=== PATIENT | female | born 1950 | race Caucasian/White ===

== ENCOUNTER 2016-10-29 13:22 | Inpatient (IN) | payer MEDICARE ==
[2016-10-29] MEDS ORDERED: SODIUM CHLORIDE 0.9% 1,000 ML IV ONE ×2 (13:27)
[2016-10-29 13:28] LABS: Glucose,Whole Blood 119 mg/dL (75-99)
[2016-10-29] MEDS ORDERED: HYDROCORTISONE SUCCINATE 100 MG/2 ML VIAL IV STA (13:29)
[2016-10-29] MEDS ORDERED: SODIUM CHLORIDE 0.9% 1,000 ML IV STA (13:38)
--- NOTE | 2016-10-29 13:38 | ED ---
Weakness HPI - General Chief complaint: Weakness Stated complaint: FLU LIKE SYMPTOMS, NAUSEA VOMITING Time Seen by Provider: 10/29/16 13:22 Source: patient, family, EMS, RN notes reviewed Mode of arrival: EMS - History of Present Illness Initial comments: Is a 66-year-old female with a history of Levels's disease who apparently has had nausea vomiting and diarrhea for the past several days. She's had lethargy decreased responsiveness. EMS was called this morning with the patient's family could not arouse her she did arouse to sternal rub. She was given 300 mL of fluid in route she did start responding more. She had nausea vomiting diarrhea no apparent fevers chills sweats or other symptoms. MD Complaint: generalized weakness - Related Data Home Medications Medication Instructions Recorded Confirmed Cholecalciferol [Vitamin D3] 2,000 unit PO DAILY 10/29/16 10/29/16 Fludrocortisone Acetate 0.05 mg PO DAILY 10/29/16 10/29/16 Hydrocortisone [Cortef] 5 mg PO W/SUPPER 10/29/16 10/29/16 Hydrocortisone [Cortef] 10 mg PO BID 10/29/16 10/29/16 Levothyroxine Sodium [Synthroid] 88 mcg PO DAILY 10/29/16 10/29/16 Allergies Allergy/AdvReac Type Severity Reaction Status Date / Time No Known Allergies Allergy Verified 10/29/16 14:33 Review of Systems ROS Statement: Those systems with pertinent positive or pertinent negative responses have been documented in the HPI. ROS Other: All systems not noted in ROS Statement are negative. Past Medical History Additional Past Medical History / Comment(s): addisons History of Any Multi-Drug Resistant Organisms: None Reported Past Surgical History: Hysterectomy Additional Past Surgical History / Comment(s): neck surgery-benign tumor Past Psychological History: No Psychological Hx Reported Smoking Status: Never smoker Past Alcohol Use History: None Reported Past Drug Use History: None Reported General Exam - General Exam Comments Initial Comments: This is a well-developed well-nourished female she is lethargic but she is arousable. General appearance: lethargic Head exam: Present: atraumatic, normocephalic, normal inspection Eye exam: Present: normal appearance, PERRL, EOMI. Absent: scleral icterus, conjunctival injection, periorbital swelling ENT exam: Present: mucous membranes dry Neck exam: Present: normal inspection. Absent: tenderness, meningismus, lymphadenopathy Respiratory exam: Present: decreased breath sounds. Absent: respiratory distress, wheezes, rales, rhonchi, stridor Cardiovascular Exam: Present: normal rhythm, tachycardia, normal heart sounds. Absent: systolic murmur, diastolic murmur, rubs, gallop, clicks GI/Abdominal exam: Present: soft, normal bowel sounds. Absent: distended, tenderness, guarding, rebound, rigid, pulsatile mass, hernia Rectal exam: Present: deferred Extremities exam: Present: normal inspection, full ROM, normal capillary refill. Absent: tenderness, pedal edema, joint swelling, calf tenderness Back exam: Present: normal inspection Neurological exam: Present: alert, oriented X3, CN II-XII intact Psychiatric exam: Present: normal affect, normal mood Skin exam: Present: warm, dry, intact, normal color. Absent: rash Course Vital Signs 10/29/16 10/29/16 10/29/16 13:23 13:30 14:15 Temperature 103.3 F H 102.7 F H Pulse Rate 109 H 95 Pulse Rate [ 110 H Sap Bods Developer ] Respiratory 28 H 28 H 28 H Rate Blood Pressure 154/73 120/56 O2 Sat by Pulse 96 95 Oximetry 10/29/16 15:28 Temperature 99 F Pulse Rate 97 Pulse Rate [ Sap Bods Developer ] Respiratory 22 Rate Blood Pressure 101/59 O2 Sat by Pulse 95 Oximetry - Reevaluation(s) Reevaluation #1: 10/29/16 16:23 Patient initially much improved after IV fluids. She is more responsive. EKG Findings - EKG Results: EKG: interpreted by CANDIDA, sinus rhythm (Sinus rhythm a rate of 109. Interval 138 QRS duration 82 daily since QTC of 396/533 LVH and prolonged QT st-t wave changes.) Medical Decision Making - Medical Decision Making Patient was reevaluated several more occasions. He did improve after IV fluids she will be admitted I did discuss case with her family members. Patient was admitted for was a type A dehydration and fever. - Lab Data Result diagrams: 10/29/16 14:00 10/29/16 14:00 Lab Results 10/29/16 10/29/16 10/29/16 Range/Units 13:26 14:00 14:00 WBC 13.1 H (3.8-10.6) k/uL RBC 4.92 (3.80-5.40) m/uL Hgb 15.9 (11.4-16.0) gm/dL Hct 44.2 (34.0-46.0) % MCV 89.9 (80.0-100.0) fL MCH 32.3 (25.0-35.0) pg MCHC 36.0 (31.0-37.0) g/dL RDW 12.8 (11.5-15.5) % Plt Count 155 (150-450) k/uL Neutrophils % 71 % Lymphocytes % 16 % Monocytes % 9 % Eosinophils % 1 % Basophils % 1 % Neutrophils # 9.4 H (1.3-7.7) k/uL Lymphocytes # 2.1 (1.0-4.8) k/uL Monocytes # 1.2 H (0-1.0) k/uL Eosinophils # 0.1 (0-0.7) k/uL Basophils # 0.1 (0-0.2) k/uL PT 11.6 (9.0-12.0) sec INR 1.2 (<1.1) APTT 19.9 L (22.0-30.0) sec Sodium (137-145) mmol/L Potassium (3.5-5.1) mmol/L Chloride (98-107) mmol/L Carbon Dioxide (22-30) mmol/L Anion Gap mmol/L BUN (7-17) mg/dL Creatinine (0.52-1.04) mg/dL Est GFR (MDRD) Af Amer (>60 ml/min/1.73 sqM) Est GFR (MDRD) Non-Af (>60 ml/min/1.73 sqM) Glucose (74-99) mg/dL POC Glucose (mg/dL) 119 H (75-99) mg/dL POC Glu Cost Estimating Manager ID Gaston, Fiorella Plasma Lactic Acid Real (0.7-2.0) mmol/L Calcium (8.4-10.2) mg/dL Magnesium (1.6-2.3) mg/dL Total Bilirubin (0.2-1.3) mg/dL AST (14-36) U/L ALT (9-52) U/L Alkaline Phosphatase (38-126) U/L Ammonia (<30) umol/L Total Creatine Kinase (30-135) U/L CK-MB (CK-2) (0.0-2.4) ng/mL CK-MB (CK-2) Rel Index Troponin I (0.000-0.034) ng/mL Total Protein (6.3-8.2) g/dL Albumin (3.5-5.0) g/dL Urine Color Urine Appearance (Clear) Urine pH (5.0-8.0) Ur Specific [place] (1.001-1.035) Urine Protein (Negative) Urine Glucose (UA) (Negative) Urine Ketones (Negative) Urine Blood (Negative) Urine Nitrate (Negative) Urine Bilirubin (Negative) Urine Urobilinogen (<2.0) mg/dL Ur Leukocyte Esterase (Negative) Urine Bacteria (None) /hpf Hyaline Casts (0-2) /lpf Urine Mucus (None) /hpf Urine Yeast (Budding) (None) /hpf Urine Opiates Screen (NotDetected) Ur Oxycodone Screen (NotDetected) Urine Methadone Screen (NotDetected) Ur Propoxyphene Screen (NotDetected) Ur Barbiturates Screen (NotDetected) U Tricyclic Antidepress (NotDetected) Ur Phencyclidine Scrn (NotDetected) Ur Amphetamines Screen (NotDetected) U Methamphetamines Scrn (NotDetected) U Benzodiazepines Scrn (NotDetected) Urine Cocaine Screen (NotDetected) U Marijuana (THC) Screen (NotDetected) Influenza Type A RNA (Not Detectd) Influenza Type B (PCR) (Not Detectd) 10/29/16 10/29/16 10/29/16 Range/Units 14:00 14:00 14:00 WBC (3.8-10.6) k/uL RBC (3.80-5.40) m/uL Hgb (11.4-16.0) gm/dL Hct (34.0-46.0) % MCV (80.0-100.0) fL MCH (25.0-35.0) pg MCHC (31.0-37.0) g/dL RDW (11.5-15.5) % Plt Count (150-450) k/uL Neutrophils % % Lymphocytes % % Monocytes % % Eosinophils % % Basophils % % Neutrophils # (1.3-7.7) k/uL Lymphocytes # (1.0-4.8) k/uL Monocytes # (0-1.0) k/uL Eosinophils # (0-0.7) k/uL Basophils # (0-0.2) k/uL PT (9.0-12.0) sec INR (<1.1) APTT (22.0-30.0) sec Sodium 139 (137-145) mmol/L Potassium 3.4 L (3.5-5.1) mmol/L Chloride 104 (98-107) mmol/L Carbon Dioxide 20 L (22-30) mmol/L Anion Gap 15 mmol/L BUN 17 (7-17) mg/dL Creatinine 1.24 H (0.52-1.04) mg/dL Est GFR (MDRD) Af Amer 52 (>60 ml/min/1.73 sqM) Est GFR (MDRD) Non-Af 43 (>60 ml/min/1.73 sqM) Glucose 114 H (74-99) mg/dL POC Glucose (mg/dL) (75-99) mg/dL POC Glu Cost Estimating Manager ID Plasma Lactic Acid Real 1.9 (0.7-2.0) mmol/L Calcium 10.1 (8.4-10.2) mg/dL Magnesium 1.9 (1.6-2.3) mg/dL Total Bilirubin 1.5 H (0.2-1.3) mg/dL AST 36 (14-36) U/L ALT 25 (9-52) U/L Alkaline Phosphatase 161 H (38-126) U/L Ammonia <9 (<30) umol/L Total Creatine Kinase 763 H (30-135) U/L CK-MB (CK-2) 1.5 (0.0-2.4) ng/mL CK-MB (CK-2) Rel Index 0.2 Troponin I 0.018 (0.000-0.034) ng/mL Total Protein 7.0 (6.3-8.2) g/dL Albumin 4.1 (3.5-5.0) g/dL Urine Color Urine Appearance (Clear) Urine pH (5.0-8.0) Ur Specific [place] (1.001-1.035) Urine Protein (Negative) Urine Glucose (UA) (Negative) Urine Ketones (Negative) Urine Blood (Negative) Urine Nitrate (Negative) Urine Bilirubin (Negative) Urine Urobilinogen (<2.0) mg/dL Ur Leukocyte Esterase (Negative) Urine Bacteria (None) /hpf Hyaline Casts (0-2) /lpf Urine Mucus (None) /hpf Urine Yeast (Budding) (None) /hpf Urine Opiates Screen (NotDetected) Ur Oxycodone Screen (NotDetected) Urine Methadone Screen (NotDetected) Ur Propoxyphene Screen (NotDetected) Ur Barbiturates Screen (NotDetected) U Tricyclic Antidepress (NotDetected) Ur Phencyclidine Scrn (NotDetected) Ur Amphetamines Screen (NotDetected) U Methamphetamines Scrn (NotDetected) U Benzodiazepines Scrn (NotDetected) Urine Cocaine Screen (NotDetected) U Marijuana (THC) Screen (NotDetected) Influenza Type A RNA (Not Detectd) Influenza Type B (PCR) (Not Detectd) 10/29/16 10/29/16 Range/Units 14:00 14:15 WBC (3.8-10.6) k/uL RBC (3.80-5.40) m/uL Hgb (11.4-16.0) gm/dL Hct (34.0-46.0) % MCV (80.0-100.0) fL MCH (25.0-35.0) pg MCHC (31.0-37.0) g/dL RDW (11.5-15.5) % Plt Count (150-450) k/uL Neutrophils % % Lymphocytes % % Monocytes % % Eosinophils % % Basophils % % Neutrophils # (1.3-7.7) k/uL Lymphocytes # (1.0-4.8) k/uL Monocytes # (0-1.0) k/uL Eosinophils # (0-0.7) k/uL Basophils # (0-0.2) k/uL PT (9.0-12.0) sec INR (<1.1) APTT (22.0-30.0) sec Sodium (137-145) mmol/L Potassium (3.5-5.1) mmol/L Chloride (98-107) mmol/L Carbon Dioxide (22-30) mmol/L Anion Gap mmol/L BUN (7-17) mg/dL Creatinine (0.52-1.04) mg/dL Est GFR (MDRD) Af Amer (>60 ml/min/1.73 sqM) Est GFR (MDRD) Non-Af (>60 ml/min/1.73 sqM) Glucose (74-99) mg/dL POC Glucose (mg/dL) (75-99) mg/dL POC Glu Cost Estimating Manager ID Plasma Lactic Acid Real (0.7-2.0) mmol/L Calcium (8.4-10.2) mg/dL Magnesium (1.6-2.3) mg/dL Total Bilirubin (0.2-1.3) mg/dL AST (14-36) U/L ALT (9-52) U/L Alkaline Phosphatase (38-126) U/L Ammonia (<30) umol/L Total Creatine Kinase (30-135) U/L CK-MB (CK-2) (0.0-2.4) ng/mL CK-MB (CK-2) Rel Index Troponin I (0.000-0.034) ng/mL Total Protein (6.3-8.2) g/dL Albumin (3.5-5.0) g/dL Urine Color Yellow Urine Appearance Cloudy H (Clear) Urine pH 5.0 (5.0-8.0) Ur Specific [place] 1.014 (1.001-1.035) Urine Protein 1+ H (Negative) Urine Glucose (UA) Negative (Negative) Urine Ketones Trace H (Negative) Urine Blood Small H (Negative) Urine Nitrate Negative (Negative) Urine Bilirubin Negative (Negative) Urine Urobilinogen <2.0 (<2.0) mg/dL Ur Leukocyte Esterase Negative (Negative) Urine Bacteria Occasional H (None) /hpf Hyaline Casts 6 H (0-2) /lpf Urine Mucus Few H (None) /hpf Urine Yeast (Budding) Occasional H (None) /hpf Urine Opiates Screen Not Detected (NotDetected) Ur Oxycodone Screen Not Detected (NotDetected) Urine Methadone Screen Not Detected (NotDetected) Ur Propoxyphene Screen Not Detected (NotDetected) Ur Barbiturates Screen Not Detected (NotDetected) U Tricyclic Antidepress Not Detected (NotDetected) Ur Phencyclidine Scrn Not Detected (NotDetected) Ur Amphetamines Screen Not Detected (NotDetected) U Methamphetamines Scrn Not Detected (NotDetected) U Benzodiazepines Scrn Not Detected (NotDetected) Urine Cocaine Screen Not Detected (NotDetected) U Marijuana (THC) Screen Not Detected (NotDetected) Influenza Type A RNA Detected H (Not Detectd) Influenza Type B (PCR) Not Detected (Not Detectd) - Radiology Data Radiology results: report reviewed (X-ray show no acute findings.), image reviewed Critical Care Time Critical Care Time: Yes Critical Care Time: 37 minutes of critical care time which included the monitoring of the EMS run and discussed with paramedics. History physical lab and x-rays on the patient evaluation of the patient to responsive therapy discussed with family members also reevaluation of the patient discussed with the admitting physician. Orders and mentation the above. Disposition Clinical Impression: Influenza A, Gastroenteritis, Dehydration, Addisons disease, Fever Disposition: ADMITTED IP TO THIS HOSP Condition: Stable
[2016-10-29] MEDS ORDERED: ACETAMINOPHEN IV (For NPO) 1,000 MG in SALINE 1 100ML.BAG IVPB STA (13:47)
[2016-10-29 14:27] LABS: Basophils # (A) 0.1 k/uL (0-0.2); Basophils % (A) 1 %; CH 31.7; CHCM 35.4; Eosinophils # (A) 0.1 k/uL (0-0.7); Eosinophils % (A) 1 %; HCT 44.2 % (34.0-46.0); HDW 2.64; HGB 15.9 gm/dL (11.4-16.0); Luc # (Auto) 0.22; Luc % (Auto) 2; Lymphocytes # (A) 2.1 k/uL (1.0-4.8); Lymphocytes % (A) 16 %; MCH 32.3 pg (25.0-35.0); MCV 89.9 fL (80.0-100.0); Mean Platelet Volume 8.6; Monocytes # (A) 1.2 k/uL (0-1.0); Monocytes % (A) 9 %; Neutrophils # (A) 9.4 k/uL (1.3-7.7); Neutrophils % (A) 71 %; RBC 4.92 m/uL (3.80-5.40); RDW 12.8 % (11.5-15.5); WBC 13.1 k/uL (3.8-10.6)
--- NOTE | 2016-10-29 14:34 | XR ---
EXAMINATION TYPE: XR chest 1V portable DATE OF EXAM: 10/29/2016 2:29 PM COMPARISON: Chest CT JulyMay 29, 2012. HISTORY: Altered mental status with flulike symptoms. TECHNIQUE: Single frontal view of the chest is obtained. FINDINGS: There is no focal air space opacity, pleural effusion, or pneumothorax seen. Low lung volu mes are noted. Parenchymal changes most prominent in bilateral lung bases is noted. Slight bilateral hilar prominence noted, consider underlying pulmonary artery hypertension. The cardiac silhouette siz e is within normal limits. The osseous structures are demineralized. IMPRESSION: Low lung volumes and chronic parenchymal changes without suspicious acute infiltrate.
[2016-10-29 14:36] LABS: Appearance,Urine Cloudy (Clear); Bacteria,Urine Occasional /hpf; Bilirubin,Urine Negative (Negative); Glucose,Urine (UA) Negative (Negative); Ketones,Urine Trace (Negative); Leukocyte Esterase,Urine Negative (Negative); Mucus,Urine Few /hpf; Nitrite,Urine Negative (Negative); Particle Count 12508; Protein,Urine 1+ (Negative); Specific Gravity,Urine 1.014 (1.001-1.035); UA Billing (MACRO vs. MICRO) MICRO; Urobilinogen,Urine <2.0 mg/dL (<2.0)
[2016-10-29 14:38] LABS: INR 1.2 (<1.1); Prothrombin Time 11.6 sec (9.0-12.0)
[2016-10-29 14:41] LABS: Calcium 10.1 mg/dL (8.4-10.2); Magnesium 1.9 mg/dL (1.6-2.3); Potassium 3.4 mmol/L (3.5-5.1); Total Bilirubin 1.5 mg/dL (0.2-1.3)
[2016-10-29 14:43] LABS: Partial Thromboplastin Time 19.9 sec (22.0-30.0)
[2016-10-29 14:53] LABS: Ammonia <9 umol/L (<30)
[2016-10-29 14:58] LABS: Creatine Kinase MB 1.5 ng/mL (0.0-2.4); Troponin I 0.018 ng/mL (0.000-0.034)
[2016-10-29] MEDS ORDERED: OSELTAMIVIR 75 MG CAP PO STA (16:23)
[2016-10-29] MEDS ORDERED: ONDANSETRON 4 MG/2 ML VIAL IVP PRN (16:26)
[2016-10-29] MEDS ORDERED: NALOXONE 0.4 MG/ML 1 ML VIAL IV PRN (16:26)
[2016-10-29 17:56] LABS: Glucose,Whole Blood 148 mg/dL (75-99)
[2016-10-29 18:24] VITALS: BMI 28.3
[2016-10-29] MEDS: HYDROCORTISONE SUCCINATE 100 MG/2 ML VIAL IV SCH (21:30)
[2016-10-29 22:04] LABS: Glucose,Whole Blood 133 mg/dL (75-99)
[2016-10-30] MEDS: SODIUM CHLORIDE 0.9% 1,000 ML IV SCH ×4 (01:53→23:18)
[2016-10-30 02:03] LABS: Glucose,Whole Blood 137 mg/dL (75-99)
[2016-10-30] MEDS: OSELTAMIVIR 75 MG CAP PO SCH ×2 (06:26→18:15)
[2016-10-30] MEDS: LEVOTHYROXINE 88 MCG TAB PO SCH (06:26)
[2016-10-30] MEDS: HYDROCORTISONE SUCCINATE 100 MG/2 ML VIAL IV SCH ×3 (06:43→23:17)
[2016-10-30 07:16] LABS: Glucose,Whole Blood 108 mg/dL (75-99)
[2016-10-30] MEDS: FLUDROCORTISONE 0.1 MG TAB PO SCH (09:46)
[2016-10-30] MEDS: CHOLECALCIFEROL 1,000 UNIT TAB PO SCH (12:37)
[2016-10-30] MEDS: ENOXAPARIN 40 MG/0.4 ML SYRINGE SQ SCH (16:14)
--- NOTE | 2016-10-30 18:13 | HP ---
DATE OF ADMISSION: 10/29/2016 PRESENTING COMPLAINT: Tired. HISTORY: Cough. HISTORY OF PRESENTING COMPLAINT: This is a very pleasant 66 -year-old patient of Dr. 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 Patient was treated and started feeling tired, coughing, congested, and had a temperature up to 103.4. Decreased appetite, tired, and rundown, aching all over. Unable to bring up some phlegm. Patient came in positive for Tamiflu. Admitted for the same. Also having some nausea. The patient also has a herniated disc. Appetite is poor. REVIEW OF SYSTEMS: CONSTITUTIONAL: Weak, tired febrile. HEENT: Nasal congestion. RESPIRATORY: As above. CARDIOVASCULAR: None. GASTROINTESTINAL: As above. GENITOURINARY: None. MUSCULOSKELETAL: Lower back pain. Dermatological: None. Hematological: None. LYMPHATIC: None. PSYCHIATRY: None. NEUROLOGICAL: None. Past medical history of Alessandro disease, hypothyroid, herniated disc. PAST SURGICAL HISTORY: Neck surgery for benign tumor, hysterectomy. SOCIAL HISTORY: Does not smoke or drink alcohol. Lives with her sister. Family history of colon and breast cancer. HOME MEDICATIONS: 1. Vitamin D3, 2000 units p.o. daily. 2. Synthroid 88 mcg p.o. daily. 3. Cortef 10 mg q.p.m. 4. Cortef 5 mg at supper. 5. Florinef 0.05 mg p.o. daily. ALLERGIES TO LATEX. On examination: Vital signs on presentation temperature 103.3, pulse 109, respiration 28, blood pressure 122/73, pulse ox 96% on room air. GENERAL APPEARANCE: Average build, sitting up in a chair, tired appearing. EYES: Pupils equal. Conjunctivae normal. HEENT: Oral cavity normal. NECK: JVD not raised. Mass not palpable. RESPIRATORY: Effort normal. LUNGS: A few crackles. CARDIOVASCULAR: First and second sounds normal. No edema. ABDOMEN: Soft, nontender. Liver and spleen not palpable. LYMPHATIC: No lymph nodes palpable in neck or axillae. PSYCHIATRY: Alert and oriented x3. Mood and affect is tired appearing. NEUROLOGICAL: Pupils equal. Cranial nerves grossly intact. Power and sensation grossly intact. INVESTIGATIONS: White count 13.1, hemoglobin 15.9. Potassium 3.4. BUN 72, creatinine 1.24. Influenza type A positive. EKG shows sinus tachycardia. Chest x-ray reviewed by me shows bilateral infiltrates. ASSESSMENT: 1. Acute severe ( ) influenza A pneumonitis with causing sepsis, present on admission. 2. Goshen's disease. 3. Hypothyroidism. 4. Chronic herniated disc. PLAN: Patient is put on IV fluids. Tamiflu. Stress dose of hydrocortisone. Care was discussed with the patient. Encouraged to increase oral intake. Care was discussed with the patient. Questions were answered. Copy to Dr. Reaves.
[2016-10-31] MEDS: SODIUM CHLORIDE 0.9% 1,000 ML IV SCH (05:51)
[2016-10-31] MEDS: OSELTAMIVIR 75 MG CAP PO SCH (06:10)
[2016-10-31] MEDS: LEVOTHYROXINE 88 MCG TAB PO SCH (06:10)
[2016-10-31] MEDS: FLUDROCORTISONE 0.1 MG TAB PO SCH (08:36)
[2016-10-31] MEDS: HYDROCORTISONE SUCCINATE 100 MG/2 ML VIAL IV SCH (08:37)
[2016-10-31] MEDS: ENOXAPARIN 40 MG/0.4 ML SYRINGE SQ SCH (08:39)
[2016-10-31 09:58] VITALS: RESP 20
[2016-10-31 13:09] VITALS: BP 141/74; PULSE 59; TEMP 97.7
[2016-10-31] MEDS: CHOLECALCIFEROL 1,000 UNIT TAB PO SCH (13:12)
--- NOTE | 2016-10-31 18:37 | DS ---
DATE OF ADMISSION: 10/29/2016 DATE OF DISCHARGE: 10/31/2016 FINAL DIAGNOSES: 1. Acute severe influenza A pneumonitis causing sepsis, present on admission. 2. Piute's disease, chronic. 3. Hypothyroidism. 4. Chronic herniated disc in the lower back. HOSPITAL COURSE: This patient presented with influenza A pneumonitis; sepsis-like picture; responded well to Tamiflu and IV fluids, and IV steroids were given. At the time of discharge doing much better, tolerating a diet. Up and about. Patient's steroids will be tapered off. Care was discussed in detail with the patient. On exam, lungs have improved air entry. CARDIOVASCULAR: First and second sounds normal. PSYCH: Alert and oriented x3. DISCHARGE MEDICATIONS: 1. Vitamin D3 2000 units p.o. daily. 2. Florinef 0.05 mg p.o. daily. 3. Cortef 5 mg p.o. with supper. 4. Cortef 10 mg p.o. b.i.d. 5. Synthroid 88 mcg p.o. daily. 6. Tamiflu 75 mg p.o. q.12; 6 capsules. 7. Prednisone taper then switch to Cortef. Follow up with Dr. Reaves in 2 or 3 days.
[2016-11-01] MEDS ORDERED: OSELTAMIVIR 75 MG CAP PO SCH (06:00)
== END 2016-10-31 14:30 | disposition home or self-care (01) | DRG 871 ==
LOC: EC 13:22 → 6PED 16:27
PROVIDERS: ADMIT Hospitalist; ATTEND Hospitalist
DX: A41.89 Other specified sepsis (principal); J11.00 Influenza due to unidentified influenza virus with unspecified type of pneumonia; E27.1 Primary adrenocortical insufficiency; E03.9 Hypothyroidism, unspecified; Z91.040 Latex allergy status; E86.0 Dehydration; K52.9 Noninfective gastroenteritis and colitis, unspecified; Z79.899 Other long term (current) drug therapy
CPT/HCPCS: 36415; 71010; 80053; 80306; 81001; 82140; 82550; 82553; 83605; 83735; 84484; 85025; 85610; 85730; 87040; 87502; 93005; 96361; 96374; 96375; 99291

== ENCOUNTER 2018-02-10 07:46 | Day surgery (SDC) | payer MEDICARE ==
[2018-02-08 11:04] VITALS: BMI 28.8
[~2018-02-10 07:46] MED LIST: LACTATED RINGERS 1,000 ML IV SCH; LIDOCAINE 1% 20 ML VIAL (10MG/ML) FOR IV START INTRADERMA PRN
[2018-02-10] MEDS ORDERED: MIDAZOLAM 2 MG/2 ML VIAL IVP ONE (08:36)
[2018-02-10 08:37] VITALS: TEMP 99.2
[2018-02-10] MEDS ORDERED: ONDANSETRON 4 MG/2 ML VIAL IVP ONE (08:37)
[2018-02-10] MEDS ORDERED: LIDOCAINE 1% INJ 10MG/ML (20 ML MDV) ONE (09:03)
[2018-02-10] MEDS ORDERED: PROPOFOL 10 MG/ML 20 ML VIAL IV ONE (09:03)
--- NOTE | 2018-02-10 09:22 | P.PCN ---
Date of Procedure: 02/10/18 Procedure(s) Performed: BRIEF HISTORY: Patient is a 67-year-old pleasant white female, scheduled for an elective colonoscopy as a part of screening for colorectal neoplasia. PROCEDURE PERFORMED: Colonoscopy. PREOPERATIVE DIAGNOSIS: Screening for colon cancer. IV sedation per Anesthesia. PROCEDURE: After informed consent was obtained, the patient, was brought into the endoscopy unit. IV sedation was administered by Anesthesia under continuous monitoring. Digital rectal examination was normal. Initially the Olympus CF- 160 flexible video colonoscope was then inserted in the rectum, gradually advanced into the sigmoid colon and further advancement was not possible. Pediatric colonoscope was then introduced into the rectum and gradually advanced into the cecum cecum without any difficulty. Careful examination was performed as the scope was gradually being withdrawn. Ileocecal valve and the appendiceal orifice were visualized and appeared normal. Prep was excellent. Mucosa of the cecum, ascending colon, transverse colon, descending colon, sigmoid colon, and rectum appeared normal. Scattered sigmoidal diagnosis same. Retroflexion was performed in the rectum and no lesions were seen. The patient tolerated the procedure well. IMPRESSION: Normal-appearing colon from rectum to cecum with no evidence of colorectal neoplasia . Scattered sigmoid diverticulosis RECOMMENDATIONS: Findings of this examination were discussed with the patient as well as a family. His advised to have a repeat screening colonoscopy in 10 years..
[2018-02-10 09:28] VITALS: BP 115/69
[2018-02-10 09:43] VITALS: PULSE 55; RESP 16
== END 2018-02-10 10:01 | disposition home or self-care (01) ==
LOC: ORWHC2ENDO 07:46
PROVIDERS: ATTEND Internal Medicine Gastroenterology
DX: Z12.11 Encounter for screening for malignant neoplasm of colon (principal); K57.30 Diverticulosis of large intestine without perforation or abscess without bleeding; K21.9 Gastro-esophageal reflux disease without esophagitis; E27.1 Primary adrenocortical insufficiency; E07.9 Disorder of thyroid, unspecified; Z79.890 Hormone replacement therapy; Z79.52 Long term (current) use of systemic steroids; Z79.899 Other long term (current) drug therapy; Z91.040 Latex allergy status
CPT/HCPCS: J2250; J2405; J2001; J2704; G0121

== ENCOUNTER → 2018-03-29 | Outpatient (CLI) | payer MEDICARE ==
--- NOTE | 2018-03-29 16:55 | BD ---
EXAMINATION TYPE: Axial Bone Density DATE OF EXAM: 03/29/2018 COMPARISON: NONE CLINICAL HISTORY: 68-year-old female screening for osteoporosis Height: 5 FT 5 1/2 IN Weight: 185 FRAX RISK QUESTIONS: Family History (Parent hip fracture): YES Glucocorticoids (More than 3mos): YES (Ex: prednisone, prednisolone, methylprednisolone, dexamethasone, and hydrocortisone). History of Fracture in Adulthood: YES Secondary Osteoporosis: RISK FACTORS HISTORY OF: Family History of Osteoporosis: YES Active: YES Postmenopausal woman: PARTIAL HYST AGE 38 Lost more than 2 inches in height since high school: YES MEDICATIONS: Thyroid Medications: YES Which medication: SYNTHROID How Lon YEARS Additional Medications: VIT , CALCIUM, SYNTHROID ,CORTISONE, OMEPRAZOLE,NIACIN Additional History: PT STATES SHE HAS ADDISONS DISEASE EXAM MEASUREMENTS: Bone mineral densitometry was performed using the [employer]. Bone mineral density as measured about the Lumbar spine is: ----- L1-L4(G/cm2): 0.962 T Score Values are as follows: ----- L2: -2.3 ----- L3: -1.2 ----- L4: -2.1 ----- L1-L4: -1.8 BASELINE Bone mineral density about the R hip (g/cm2): 0.711 Bone mineral density about the L hip (g/cm2): 0.674 T Score values are as follows: -----R Neck: -2.4 -----L Neck: -2.6 -----R Total: -3.1 -----L Total: -3.0 BASELINE IMPRESSION: Osteoporosis (T Score less than -2.5). There is increased fracture risk and therapy is usually indicated based on age. Re-Screen 1-2 years. NOTE: T-SCORE=SD OF THE YOUNG ADULT MEAN.
--- NOTE | 2018-03-31 11:03 | MM ---
Reason for exam: screening (asymptomatic). History: Patient is nulliparous. Family history of breast cancer in sister. Physical Findings: A clinical breast exam by your physician is recommended on an annual basis and results should be correlated with mammographic findings. MG 3D Screening Mammo W/Cad Bilateral CC, MLO, XCCL, and XCCM view(s) were taken. No prior studies available for comparison. There are scattered fibroglandular densities. Benign appearing bilateral calcifications. No suspicious abnormality. ASSESSMENT: Benign, BI-RAD 2 RECOMMENDATION: Routine screening mammogram of both breasts in 1 year.
== END | disposition home or self-care (01) ==
LOC: RADMAMWWP 13:56
PROVIDERS: ATTEND Family Medicine
DX: Z12.31 Encounter for screening mammogram for malignant neoplasm of breast (principal); M81.0 Age-related osteoporosis without current pathological fracture
CPT/HCPCS: 77063; 77067; 77080

== ENCOUNTER 2020-03-09 07:50 | Inpatient (IN) | payer MEDICARE ==
[2020-03-09] MEDS ORDERED: ACETAMINOPHEN TAB 500 MG TAB PO STA (08:19)
[2020-03-09] MEDS ORDERED: IBUPROFEN 600 MG TAB PO STA (08:19)
[2020-03-09] MEDS ORDERED: HYDROCORTISONE SUCCINATE 100 MG/2 ML VIAL IV STA (08:21)
--- NOTE | 2020-03-09 08:39 | ED ---
General Adult HPI - General Chief complaint: Altered Mental Status Stated complaint: Altered mental status, fever Source: patient, family, EMS, RN notes reviewed, old records reviewed Mode of arrival: EMS Limitations: altered mental status - History of Present Illness Initial comments: This is a 70-year-old female presents emergency department with past medical history significant for [place]'s disease. Most of the history comes from the sister. Sister states this morning the patient was up and acting normally and then she went to her bedroom and someone went in to check on her and she was altered mentally. They noted she had a fever so they decided to come the emergency department immediately. Patient herself states she has no pain but she's not conversing openly. Patient said she was not experiencing any problems but again she is only alert and oriented 1 at this time. Sister states she hadn't been coughing she didn't have any shortness of breath. Patient had no vomiting or diarrhea that she knows of. And again patient's sister stated this morning she was up and working around the kitchen without problems. Sister states the patient has had no COVID exposure - Related Data Home Medications Medication Instructions Recorded Confirmed Cholecalciferol [Vitamin D3 (25 2,000 unit PO DAILY 10/29/16 03/09/20 Mcg = 1000 Iu)] Fludrocortisone Acetate 0.05 mg PO QAM 10/29/16 03/09/20 Hydrocortisone [Cortef] 10 mg PO TID 10/29/16 03/09/20 Levothyroxine Sodium [Synthroid] 88 mcg PO QAM 10/29/16 03/09/20 Alendronate Sodium [Fosamax] 70 mg PO TH 03/09/20 03/09/20 Ascorbic Acid [Vitamin C] 500 mg PO DAILY 03/09/20 03/09/20 Ergocalciferol [Vitamin D2 50,000 units PO DIRECTED 03/09/20 03/09/20 (DRISDOL)] Li-Zyme 1 cap PO DAILY 03/09/20 03/09/20 Magnesium Plus 1 tab PO DAILY 03/09/20 03/09/20 Omeprazole 20 mg PO DAILY 03/09/20 03/09/20 Para-Pack 1 tab PO DAILY 03/09/20 03/09/20 Potassium Plus 1 tab PO DAILY 03/09/20 03/09/20 Ubidecarenone [Co Q-10] 100 mg PO DAILY 03/09/20 03/09/20 Allergies Allergy/AdvReac Type Severity Reaction Status Date / Time latex Allergy Rash/Hives Verified 03/09/20 08:29 Review of Systems ROS Statement: Those systems with pertinent positive or pertinent negative responses have been documented in the HPI. ROS Other: All systems not noted in ROS Statement are negative. Past Medical History Past Medical History: GERD/Reflux, Thyroid Disorder Additional Past Medical History / Comment(s): [place]'s,daily steroid History of Any Multi-Drug Resistant Organisms: None Reported Past Surgical History: Hysterectomy Additional Past Surgical History / Comment(s): neck surgery-benign tumor Past Anesthesia/Blood Transfusion Reactions: No Reported Reaction Additional Past Anesthesia/Blood Transfusion Reaction / Comment(s): tearful when waking up from anesthesia,Panic Attacks with needles. Past Psychological History: No Psychological Hx Reported Smoking Status: Never smoker Past Alcohol Use History: None Reported Past Drug Use History: None Reported - Past Family History Sister(s) Family Medical History: Cancer Additional Family Medical History / Comment(s): colon and breast General Exam - General Exam Comments Initial Comments: GENERAL: Patient is well-developed and well-nourished. Patient is nontoxic and well- hydrated and is in mild distress. ENT: Neck is soft and supple. No significant lymphadenopathy is noted. Oropharynx is clear. Moist mucous membranes. Neck has full range of motion without e liciting any pain. EYES: The sclera were anicteric and conjunctiva were pink and moist. Extraocular movements were intact and pupils were equal round and reactive to light. Eyelids were unremarkable. PULMONARY: Unlabored respirations. Good breath sounds bilaterally. No audible rales rhonchi or wheezing was noted. CARDIOVASCULAR: There is a regular rate and rhythm without any murmurs gallops or rubs. ABDOMEN: Soft and nontender with normal bowel sounds. SKIN: Skin is clear with no lesions or rashes and otherwise unremarkable. NEUROLOGIC: Patient is alert and oriented 1. Cranial nerves II through XII are grossly intact. Motor and sensory are also intact. Unable to assess speech because the patient is not seeing any more than yes or no MUSCULOSKELETAL: Normal extremities with adequate strength and full range of motion. LYMPHATICS: No significant lymphadenopathy is noted PSYCHIATRIC: Unable to assess at this time Limitations: altered mental status Course Vital Signs 03/09/20 03/09/20 03/09/20 07:50 08:25 08:30 Temperature 102.8 F H Pulse Rate 98 98 95 Respiratory 18 49 H 43 H Rate Blood Pressure 165/86 172/89 172/89 O2 Sat by Pulse 97 97 97 Oximetry 03/09/20 03/09/20 03/09/20 08:40 08:50 09:00 Temperature Pulse Rate 96 97 101 H Respiratory 43 H 42 H Rate Blood Pressure 160/77 145/82 145/82 O2 Sat by Pulse 98 97 Oximetry 03/09/20 03/09/20 03/09/20 09:10 09:20 09:30 Temperature Pulse Rate 98 102 H 96 Respiratory Rate Blood Pressure 162/82 145/73 145/73 O2 Sat by Pulse Oximetry 03/09/20 03/09/20 03/09/20 09:40 09:50 10:00 Temperature Pulse Rate 94 90 91 Respiratory 41 H Rate Blood Pressure 119/62 118/69 118/69 O2 Sat by Pulse Oximetry 03/09/20 03/09/20 03/09/20 10:01 10:10 10:20 Temperature 101.7 F H Pulse Rate 90 88 87 Respiratory 18 41 H 21 Rate Blood Pressure 118/53 118/53 113/49 O2 Sat by Pulse 97 Oximetry 03/09/20 03/09/20 03/09/20 10:30 10:40 10:50 Temperature Pulse Rate 84 81 84 Respiratory 26 H 26 H Rate Blood Pressure 113/49 115/54 106/51 O2 Sat by Pulse Oximetry 03/09/20 03/09/20 03/09/20 10:52 11:00 11:30 Temperature 100.8 F H Pulse Rate 77 77 Respiratory 18 18 Rate Blood Pressure 106/51 118/71 O2 Sat by Pulse 98 98 Oximetry Medical Decision Making - Medical Decision Making EKG shows normal sinus rhythm at 96 bpm TX interval 150 QRS is 82 QT interval 326 QTC is 411. Patient's EKG shows no ST segment elevation or depression or T wave abnormalities are noted. CT of the abdomen shows some mesenteric edema possible enteritis and there is a right cystic mass. I spoke with Dr. Bailon agreed to admit the patient admitted the patient wrote admitting orders. - Lab Data Result diagrams: 03/09/20 08:28 03/09/20 10:14 Lab Results 0703/09/20 03/09/20 Range/Units 08:28 08:28 08:28 WBC 11.4 H (3.8-10.6) k/uL RBC 5.18 (3.80-5.40) m/uL Hgb 15.9 (11.4-16.0) gm/dL Hct 47.5 H (34.0-46.0) % MCV 91.6 (80.0-100.0) fL MCH 30.7 (25.0-35.0) pg MCHC 33.5 (31.0-37.0) g/dL RDW 12.5 (11.5-15.5) % Plt Count 171 (150-450) k/uL Neutrophils % 79 % Lymphocytes % 15 % Monocytes % 4 % Eosinophils % 1 % Basophils % 0 % Neutrophils # 9.0 H (1.3-7.7) k/uL Lymphocytes # 1.7 (1.0-4.8) k/uL Monocytes # 0.4 (0-1.0) k/uL Eosinophils # 0.1 (0-0.7) k/uL Basophils # 0.0 (0-0.2) k/uL PT 11.4 (9.0-12.0) sec INR 1.1 (<1.2) APTT 25.1 (22.0-30.0) sec Sodium (137-145) mmol/L Potassium (3.5-5.1) mmol/L Chloride (98-107) mmol/L Carbon Dioxide (22-30) mmol/L Anion Gap mmol/L BUN (7-17) mg/dL Creatinine (0.52-1.04) mg/dL Est GFR (CKD-EPI)AfAm (>60 ml/min/1.73 sqM) Est GFR (CKD-EPI)NonAf (>60 ml/min/1.73 sqM) Glucose (74-99) mg/dL Plasma Lactic Acid Real 1.8 (0.7-2.0) mmol/L Calcium (8.4-10.2) mg/dL Total Bilirubin (0.2-1.3) mg/dL AST (14-36) U/L ALT (4-34) U/L Alkaline Phosphatase (38-126) U/L Total Protein (6.3-8.2) g/dL Albumin (3.5-5.0) g/dL TSH (0.465-4.680) mIU/L Free T4 (0.78-2.19) ng/dL Urine Color Urine Appearance (Clear) Urine pH (5.0-8.0) Ur Specific [place] (1.001-1.035) Urine Protein (Negative) Urine Glucose (UA) (Negative) Urine Ketones (Negative) Urine Blood (Negative) Urine Nitrite (Negative) Urine Bilirubin (Negative) Urine Urobilinogen (<2.0) mg/dL Ur Leukocyte Esterase (Negative) Urine RBC (0-5) /hpf Urine WBC (0-5) /hpf Hyaline Casts (0-2) /lpf Urine Mucus (None) /hpf 03/09/20 03/09/20 Range/Units 09:41 10:14 WBC (3.8-10.6) k/uL RBC (3.80-5.40) m/uL Hgb (11.4-16.0) gm/dL Hct (34.0-46.0) % MCV (80.0-100.0) fL MCH (25.0-35.0) pg MCHC (31.0-37.0) g/dL RDW (11.5-15.5) % Plt Count (150-450) k/uL Neutrophils % % Lymphocytes % % Monocytes % % Eosinophils % % Basophils % % Neutrophils # (1.3-7.7) k/uL Lymphocytes # (1.0-4.8) k/uL Monocytes # (0-1.0) k/uL Eosinophils # (0-0.7) k/uL Basophils # (0-0.2) k/uL PT (9.0-12.0) sec INR (<1.2) APTT (22.0-30.0) sec Sodium 133 L (137-145) mmol/L Potassium 3.4 L (3.5-5.1) mmol/L Chloride 109 H (98-107) mmol/L Carbon Dioxide 17 L (22-30) mmol/L Anion Gap 7 mmol/L BUN 15 (7-17) mg/dL Creatinine 0.62 (0.52-1.04) mg/dL Est GFR (CKD-EPI)AfAm >90 (>60 ml/min/1.73 sqM) Est GFR (CKD-EPI)NonAf >90 (>60 ml/min/1.73 sqM) Glucose 123 H (74-99) mg/dL Plasma Lactic Acid Real (0.7-2.0) mmol/L Calcium 9.0 (8.4-10.2) mg/dL Total Bilirubin 1.2 (0.2-1.3) mg/dL AST 19 (14-36) U/L ALT 10 (4-34) U/L Alkaline Phosphatase 143 H (38-126) U/L Total Protein 5.5 L (6.3-8.2) g/dL Albumin 3.1 L (3.5-5.0) g/dL TSH 1.810 (0.465-4.680) mIU/L Free T4 1.13 (0.78-2.19) ng/dL Urine Color Yellow Urine Appearance Clear (Clear) Urine pH 5.0 (5.0-8.0) Ur Specific [place] 1.017 (1.001-1.035) Urine Protein Negative (Negative) Urine Glucose (UA) Negative (Negative) Urine Ketones Negative (Negative) Urine Blood Small H (Negative) Urine Nitrite Negative (Negative) Urine Bilirubin Negative (Negative) Urine Urobilinogen <2.0 (<2.0) mg/dL Ur Leukocyte Esterase Negative (Negative) Urine RBC 3 (0-5) /hpf Urine WBC 2 (0-5) /hpf Hyaline Casts 1 (0-2) /lpf Urine Mucus Occasional H (None) /hpf Disposition Clinical Impression: Altered mental status, Enteritis, Ovarian cystic mass Disposition: ADMITTED IP TO THIS HOSP Referrals: Guerrero Reaves MD [Primary Care Provider] - 1-2 days Time of Disposition: 12:37
[2020-03-09 08:46] LABS: Basophils % (A) 0 %; Eosinophils # (A) 0.1 k/uL (0-0.7); Eosinophils % (A) 1 %; HCT 47.5 % (34.0-46.0); HGB 15.9 gm/dL (11.4-16.0); Lymphocytes # (A) 1.7 k/uL (1.0-4.8); Lymphocytes % (A) 15 %; MCH 30.7 pg (25.0-35.0); MCHC 33.5 g/dL (31.0-37.0); MCV 91.6 fL (80.0-100.0); Mean Platelet Volume 8.1; Monocytes # (A) 0.4 k/uL (0-1.0); Monocytes % (A) 4 %; Neutrophils % (A) 79 %; Platelet Count 171 k/uL (150-450); RBC 5.18 m/uL (3.80-5.40); RDW 12.5 % (11.5-15.5); WBC 11.4 k/uL (3.8-10.6)
[2020-03-09] MEDS: SODIUM CHLORIDE 0.9% 500 ML 500 ML IV SCH (08:46)
--- NOTE | 2020-03-09 09:31 | XR ---
EXAMINATION TYPE: XR chest 1V DATE OF EXAM: 03/09/2020 COMPARISON: 10/29/2016 HISTORY: 70-year-old female with fever TECHNIQUE: Single frontal view of the chest is obtained. FINDINGS: Low lung volumes and cardiovascular markings. Mild patchy left basilar opacity. No pleural effusion. Hazy peripheral lung densities. IMPRESSION: Limited exam due to hypoventilatory changes. Mild patchy left basilar atelectasis versus mild infiltr ate. Hazy peripheral lung densities. Subtle infiltrates difficult to exclude.
[2020-03-09 09:38] LABS: INR 1.1 (<1.2); Partial Thromboplastin Time 25.1 sec (22.0-30.0); Prothrombin Time 11.4 sec (9.0-12.0)
[2020-03-09 10:14] LABS: Appearance,Urine Clear (Clear); Bilirubin,Urine Negative (Negative); Blood,Urine Small (Negative); Color,Urine Yellow; Glucose,Urine (UA) Negative (Negative); Hyaline Casts,Urine 1 /lpf (0-2); Ketones,Urine Negative (Negative); Leukocyte Esterase,Urine Negative (Negative); Mucus,Urine Occasional /hpf; Nitrite,Urine Negative (Negative); Protein,Urine Negative (Negative); RBC,Urine 3 /hpf (0-5); Specific Gravity,Urine 1.017 (1.001-1.035); Urobilinogen,Urine <2.0 mg/dL (<2.0); WBC,Urine 2 /hpf (0-5)
[2020-03-09 10:50] LABS: ALT 10 U/L (4-34); AST 19 U/L (14-36); African American GFR (CKD) >90 (>60 ml/min/1.73 sqM); Albumin 3.1 g/dL (3.5-5.0); Alkaline Phosphatase 143 U/L (38-126); Anion Gap 7 mmol/L; Blood Urea Nitrogen 15 mg/dL (7-17); Carbon Dioxide 17 mmol/L (22-30); Chloride 109 mmol/L (98-107); Glucose 123 mg/dL (74-99); Non-African American GFR(CKD) >90 (>60 ml/min/1.73 sqM); Potassium 3.4 mmol/L (3.5-5.1); Sodium 133 mmol/L (137-145); Total Bilirubin 1.2 mg/dL (0.2-1.3); Total Protein 5.5 g/dL (6.3-8.2)
[2020-03-09 11:20] LABS: T4, Free (Free Thyroxine) 1.13 ng/dL (0.78-2.19)
--- NOTE | 2020-03-09 12:06 | CT ---
EXAMINATION TYPE: CT abdomen pelvis w con DATE OF EXAM: 03/09/2020 COMPARISON: None HISTORY: Abdominal pain, fever CT DLP: 1223.8 mGycm Automated exposure control for dose reduction was used. CONTRAST: CT scan of the abdomen pelvis is performed with IV Contrast, patient injected with 100 ml mL of Isovu e 300. FINDINGS- LUNG BASES- No significant abnormality is appreciated. LIVER/GB-gallbladder slightly prominent no gallstones. Liver slightly reduced attenuation correlate f or hepatic steatosis. PANCREAS- No gross abnormality is seen. SPLEEN- No gross abnormality is seen. Incidental note made of an accessory spleen. ADRENALS- No gross abnormality is seen. KIDNEYS/BLADDER- no hydronephrosis or nephrolithiasis. Indeterminate 1.5 cm left renal lesion measuri ng 20 Hounsfield units. BOWEL-there are few dilated small bowel loops within the mid abdomen. There is some stranding in the adjacent mesentery. Appendix normal. Hiatal hernia noted. LYMPH NODES- No greater than 1cm abdominal or pelvic lymph nodes areappreciated. OSSEOUS STRUCTURES-hypertrophic and degenerative change of the spine. Vertebral body hemangioma lower thoracic spine noted. OTHER- aorta of normal caliber. Mesenteric vasculature and portal veins enhance normally. No free fl uid. No free air. Mild bladder wall thickening noted and there is a right adnexal cyst measuring 3 cm . IMPRESSION- 1. There are dilated small bowel loops in the midabdomen. There is mesenteric stranding suggestive of mild mesenteric edema. Differential diagnosis would included as enteritis including infectious and i schemic enteritis. Partial obstructive pattern not excluded correlate clinically. 2. There is a 3 cm right adnexal cystic mass. No omental thickening. Somewhat atypical given the chang ent's demographics. Correlate with ultrasound and if necessary CA 125. 3. Mild concentric wall thickening of the bladder correlate for urinalysis. 4. Indeterminate the left renal lesion does not meet the criteria of a simple cyst measuring 20 Houns field units. Recommend ultrasound follow-up.
[2020-03-09] MEDS ORDERED: SODIUM CHLORIDE 0.9% 1,000 ML IV ONE (12:38)
[2020-03-09] MEDS ORDERED: SODIUM CHLORIDE 0.9% 1,000 ML IV SCH (18:00)
[2020-03-09] MEDS ORDERED: HYDROCORTISONE 10 MG TAB PO SCH (22:00)
--- NOTE | 2020-03-09 22:40 | P.HPIM ---
History of Present Illness H&P Date: 03/09/20 Chief Complaint: Confused History of presenting complaint: This is a very pleasant 70-year-old patient of Dr. Guerrero Reaves. We'll make stable medical conditions include GERD, hypothyroid, [place]'s disease. Patient lives with her sister and [id number]. Patient for 1 day was noted to becoming disoriented at home. Fever. Had some burning in the urine. No shortness of breath. Patient's other chronic occasional cough. No headache or dizziness no double vision. I saw the patient earlier today. Feeling better. Assess some urinary frequency 2. Also this evening at 2 or 3 loose bowel movements. Feeling bit better. Not confused anymore. Review of systems: GEN.: Fever EYES: None HEENT: None NECK: None RESPIRATORY: None CARDIOVASCULAR: None GASTROINTESTINAL: As above, no abdominal pain GENITOURINARY: None MUSCULOSKELETAL: None LYMPHATICS: None HEMATOLOGICAL: None PSYCHIATRY: None NEUROLOGICAL: Delirious earlier now improved Past medical history to include: GERD, hypothyroid, Lamoure's Social history: Lives with her sister and [id number]. Does not smoke or drink alcohol. Physical examination: VITAL SIGNS: 101.7, 90, 18, 118/53, 97% on 2 L GENERAL: BMI 29.1, laying in bed slightly tired. EYES: Pupils equal. Conjunctiva normal. HEENT: External appearance of nose and ears normal, oral cavity grossly normal. NECK: JVD not raised; masses not palpable. HEART: First and second heart sounds are normal; no edema. LUNGS: Respiratory rate normal; clear to auscultation. ABDOMEN: Soft, nontender, liver spleen not palpable, no masses palpable. PSYCH: Alert and oriented x3; mood and affect normal. NEUROLOGICAL: Cranial nerves grossly intact; no facial asymmetry, power and sensation grossly intact. LYMPHATICS: No lymph nodes palpable in the axilla and neck INVESTIGATIONS, reviewed in the clinical context: White count 10.4 hemoglobin 15.9 potassium 3.4 creatinine 0.62 TSH 1.8 Today negative for leukoesterase, negative for nitrite ThisEKG tracing personally reviewed by me-normal sinus rhythm Computed tomography scan of the abdomen-dilated small bowel loops in the mid abdomen with some eccentric stranding, 3 cm right adnexal cystic mass Chest x-ray film personally reviewed by me-hypoventilatory changes. Assessment: -This patient presents with an acute delirium fever. Patient has no respiratory symptoms. Checks x-ray film is inadequate. Patient had some loose stools today. And some evidence of enteritis on the computed tomography scan. Patient could've had a viral enteritis. -Lamoure's disorder -Hypothyroid Plan: We'll repeat patient's checks x-ray. Do patient is really no respiratory symptoms. Home medications resumed. We'll put the patient on a small dose of stress doses of steroids for now. Blood cultures obtained in the ER. Clinically patient associated better. We'll keep a close eye. We'll check pro calcitonin level. Give IV fluids. DVT prophylaxis. Past Medical History Past Medical History: GERD/Reflux, Thyroid Disorder Additional Past Medical History / Comment(s): [place]'s,daily steroid History of Any Multi-Drug Resistant Organisms: None Reported Past Surgical History: Hysterectomy Additional Past Surgical History / Comment(s): neck surgery-benign tumor Past Anesthesia/Blood Transfusion Reactions: No Reported Reaction Additional Past Anesthesia/Blood Transfusion Reaction / Comment(s): tearful when waking up from anesthesia,Panic Attacks with needles. Past Psychological History: No Psychological Hx Reported Smoking Status: Never smoker Past Alcohol Use History: None Reported Past Drug Use History: None Reported - Past Family History Sister(s) Family Medical History: Cancer Additional Family Medical History / Comment(s): colon and breast Medications and Allergies Home Medications Medication Instructions Recorded Confirmed Type Cholecalciferol [Vitamin D3 (25 2,000 unit PO DAILY 10/29/16 03/09/20 History Mcg = 1000 Iu)] Fludrocortisone Acetate 0.05 mg PO QAM 10/29/16 03/09/20 History Hydrocortisone [Cortef] 10 mg PO TID 10/29/16 03/09/20 History Levothyroxine Sodium [Synthroid] 88 mcg PO QAM 10/29/16 03/09/20 History Alendronate Sodium [Fosamax] 70 mg PO TH 03/09/20 03/09/20 History Ascorbic Acid [Vitamin C] 500 mg PO DAILY 03/09/20 03/09/20 History Ergocalciferol [Vitamin D2 50,000 units PO DIRECTED 03/09/20 03/09/20 History (NATEOL)] Li-Zyme 1 cap PO DAILY 03/09/20 03/09/20 History Magnesium Plus 1 tab PO DAILY 03/09/20 03/09/20 History Omeprazole 20 mg PO DAILY 03/09/20 03/09/20 History Para-Pack 1 tab PO DAILY 03/09/20 03/09/20 History Potassium Plus 1 tab PO DAILY 03/09/20 03/09/20 History Ubidecarenone [Co Q-10] 100 mg PO DAILY 03/09/20 03/09/20 History Allergies Allergy/AdvReac Type Severity Reaction Status Date / Time latex Allergy Rash/Hives Verified 03/09/20 08:29 Physical Exam Vitals: Vital Signs Temp Pulse Pulse Resp BP BP Pulse Ox 03/09/20 21:42 97.7 F 70 8 L 109/66 96 03/09/20 20:00 70 18 03/09/20 15:43 97.7 F 69 18 99/56 98 03/09/20 14:39 98.0 F 03/09/20 14:30 67 18 110/66 99 03/09/20 14:00 68 17 116/63 99 03/09/20 13:30 71 18 111/62 99 03/09/20 13:00 97.8 F 69 17 104/52 99 03/09/20 12:30 67 17 105/49 99 03/09/20 12:00 68 18 102/55 99 03/09/20 11:30 77 18 118/71 98 03/09/20 11:00 77 18 106/51 98 03/09/20 10:52 100.8 F H 03/09/20 10:50 84 106/51 03/09/20 10:40 81 17 115/54 03/09/20 10:30 84 18 113/49 03/09/20 10:20 87 17 113/49 03/09/20 10:10 88 18 118/53 03/09/20 10:01 101.7 F H 90 18 118/53 97 03/09/20 10:00 91 18 118/69 03/09/20 09:50 90 118/69 03/09/20 09:40 94 119/62 03/09/20 09:30 96 145/73 03/09/20 09:20 102 H 145/73 03/09/20 09:10 98 162/82 07/03/20 09:00 101 H 145/82 07/03/20 08:50 97 42 H 145/82 97 03/09/20 08:40 96 43 H 160/77 98 03/09/20 08:30 95 43 H 172/89 97 03/09/20 08:25 98 49 H 172/89 97 03/09/20 07:50 102.8 F H 98 18 165/86 97 Intake and Output 03/09/20 03/09/20 03/09/20 06:59 14:59 22:59 Intake Total 400 Balance 400 Intake: Intake, IV Titration 400 Amount Sodium Chloride 0.9% 1, 400 000 ml @ 50 mls/hr IV . Q20H [facility] Rx#:[id number] Other: Voiding Method Toilet # Voids 3 Weight 81.647 kg 81.647 kg Results CBC & Chem 7: 03/09/20 08:28 03/09/20 10:14 Labs: Abnormal Lab Results - Last 24 Hours (Table) 03/09/20 03/09/20 03/09/20 Range/Units 08:28 09:41 10:14 WBC 11.4 H (3.8-10.6) k/uL Hct 47.5 H (34.0-46.0) % Neutrophils # 9.0 H (1.3-7.7) k/uL Sodium 133 L (137-145) mmol/L Potassium 3.4 L (3.5-5.1) mmol/L Chloride 109 H (98-107) mmol/L Carbon Dioxide 17 L (22-30) mmol/L Glucose 123 H (74-99) mg/dL Alkaline Phosphatase 143 H (38-126) U/L Total Protein 5.5 L (6.3-8.2) g/dL Albumin 3.1 L (3.5-5.0) g/dL Urine Blood Small H (Negative) Urine Mucus Occasional H (None) /hpf
[2020-03-09] MEDS: ENOXAPARIN 40 MG/0.4 ML SYRINGE SQ SCH (23:03)
[2020-03-09] MEDS: HYDROCORTISONE SUCCINATE 100 MG/2 ML VIAL IV SCH (23:04)
[2020-03-09] MEDS: LACTATED RINGERS 1,000 ML IV SCH (23:04)
[2020-03-10] MEDS: LEVOTHYROXINE 88 MCG TAB PO SCH (06:05)
[2020-03-10] MEDS: LACTATED RINGERS 1,000 ML IV SCH ×3 (06:06→20:17)
[2020-03-10 08:35] LABS: Basophils % (A) 0 %; Eosinophils # (A) 0.1 k/uL (0-0.7); Eosinophils % (A) 1 %; HCT 39.3 % (34.0-46.0); HGB 13.1 gm/dL (11.4-16.0); Lymphocytes # (A) 1.3 k/uL (1.0-4.8); Lymphocytes % (A) 16 %; MCH 30.4 pg (25.0-35.0); MCHC 33.4 g/dL (31.0-37.0); MCV 90.9 fL (80.0-100.0); Mean Platelet Volume 8.1; Monocytes # (A) 0.4 k/uL (0-1.0); Monocytes % (A) 5 %; Neutrophils # (A) 6.2 k/uL (1.3-7.7); Neutrophils % (A) 76 %; Platelet Count 161 k/uL (150-450); RBC 4.33 m/uL (3.80-5.40); RDW 12.6 % (11.5-15.5); WBC 8.2 k/uL (3.8-10.6)
[2020-03-10 08:52] LABS: ALT 20 U/L (4-34); AST 39 U/L (14-36); African American GFR (CKD) >90 (>60 ml/min/1.73 sqM); Albumin 3.4 g/dL (3.5-5.0); Alkaline Phosphatase 126 U/L (38-126); Anion Gap 5 mmol/L; Blood Urea Nitrogen 9 mg/dL (7-17); Calcium 9.2 mg/dL (8.4-10.2); Carbon Dioxide 23 mmol/L (22-30); Chloride 107 mmol/L (98-107); Glucose 107 mg/dL (74-99); Non-African American GFR(CKD) >90 (>60 ml/min/1.73 sqM); Potassium 3.7 mmol/L (3.5-5.1); Sodium 135 mmol/L (137-145); Total Bilirubin 0.8 mg/dL (0.2-1.3); Total Protein 5.9 g/dL (6.3-8.2)
[2020-03-10] MEDS ORDERED: [UNRECOGNIZED DRUG - OTHER] PO SCH (09:00)
[2020-03-10] MEDS ORDERED: NON FORMULARY DRUG (Ubidecarenone [Co Q-10] 100 MG) PO SCH (09:00)
[2020-03-10] MEDS ORDERED: [UNRECOGNIZED DRUG - OTHER] PO SCH (09:00)
[2020-03-10] MEDS: ENOXAPARIN 40 MG/0.4 ML SYRINGE SQ SCH (09:09)
[2020-03-10] MEDS: CHOLECALCIFEROL 1,000 UNIT TAB PO SCH (09:41)
[2020-03-10] MEDS: ASCORBIC ACID 500 MG TAB PO SCH (09:41)
[2020-03-10] MEDS: POTASSIUM CHLORIDE ER 10 MEQ TAB.ER.PRT PO SCH (09:41)
[2020-03-10] MEDS: MAGNESIUM OXIDE 400 MG TAB PO SCH (09:41)
[2020-03-10] MEDS: PANTOPRAZOLE 40 MG TABLET PO SCH (09:42)
[2020-03-10] MEDS: HYDROCORTISONE SUCCINATE 100 MG/2 ML VIAL IV SCH ×3 (09:43→23:12)
[2020-03-10] MEDS: FLUDROCORTISONE 0.1 MG TAB PO SCH (09:48)
[2020-03-10] MEDS ORDERED: LACTATED RINGERS 1,000 ML IV SCH (13:45)
--- NOTE | 2020-03-10 17:52 | P.PN ---
Progress Note - Text Progress Note Date: 03/10/20 Chief Complaint: Confused History of presenting complaint: This is a very pleasant 70-year-old patient of Dr. Guerrero Reaves. We'll make stable medical conditions include GERD, hypothyroid, [place]'s disease. Patient lives with her sister and [id number]. Patient for 1 day was noted to becoming disoriented at home. Fever. Had some burning in the urine. No shortness of breath. Patient's other chronic occasional cough. No headache or dizziness no double vision. I saw the patient earlier today. Feeling better. Assess some urinary frequency 2. Also this evening at 2 or 3 loose bowel movements. Feeling bit better. Not confused anymore. Admitted with-likely viral enteritis. Causing initial delirium at home. Patient's lungs have abdominal discomfort pain. And having already had 4 or 5 bowel movements today. Review of systems: Was done for constitutional, cardiovascular, GI, pulmonary. relevant finding as above Active Medications Ascorbic Acid (Vitamin C) 500 mg PO DAILY [facility] Last Admin: 03/10/20 09:41 Dose: 500 mg Documented by: Cholecalciferol (Vitamin D3 (25 Mcg = 1000 Iu)) 2,000 unit PO DAILY [facility] Last Admin: 03/10/20 09:41 Dose: 2,000 unit Documented by: Enoxaparin Sodium (Lovenox) 40 mg SQ DAILY [facility] Last Admin: 03/10/20 09:09 Dose: Not Given Documented by: Ergocalciferol (Vitamin D2) 50,000 unit PO MoTh [facility] Fludrocortisone Acetate (Florinef) 0.05 mg PO QAM [facility] Last Admin: 03/10/20 09:48 Dose: 0.05 mg Documented by: Hydrocortisone Sodium Succinate (Solu-Cortef) 25 mg IV Q8HR [facility] Last Admin: 03/10/20 15:34 Dose: 25 mg Documented by: Lactated Ringer's (Lactated Ringers) 1,000 mls @ 125 mls/hr IV .Q8H [facility] Last Admin: 03/10/20 06:06 Dose: 125 mls/hr Documented by: Levothyroxine Sodium (Synthroid) 88 mcg PO QAM@0600 [facility] Last Admin: 03/10/20 06:05 Dose: 88 mcg Documented by: Magnesium Oxide (Mag-Ox) 400 mg PO DAILY [facility] Last Admin: 03/10/20 09:41 Dose: 400 mg Documented by: Pantoprazole Sodium (Protonix) 40 mg PO DAILY@0730 [facility] Last Admin: 03/10/20 09:42 Dose: 40 mg Documented by: Potassium Chloride (K-Dur 10) 10 meq PO DAILY [facility] Last Admin: 03/10/20 09:41 Dose: 10 meq Documented by: Physical examination: VITAL SIGNS: 98.2, 69, 18, 131/68, 95% room air GENERAL: Laying in bed, awake EYES: Pupils equal. Conjunctiva normal. HEENT: External appearance of nose and ears normal, oral cavity grossly normal. NECK: JVD not raised; masses not palpable. HEART: First and second heart sounds are normal; no edema. LUNGS: Respiratory rate normal; clear to auscultation. ABDOMEN: Soft, mildly tender, no guarding or rigidity. liver spleen not palpabl e, no masses palpable. PSYCH: Alert and oriented x3; mood and affect normal. INVESTIGATIONS, reviewed in the clinical context: White count 8.2 hemoglobin 13.1 potassium 3.7 creatinine 0.44 Previous testing White count 10.4 hemoglobin 15.9 potassium 3.4 creatinine 0.62 TSH 1.8 Today negative for leukoesterase, negative for nitrite EKG tracing personally reviewed by me-normal sinus rhythm Computed tomography scan of the abdomen-dilated small bowel loops in the mid abdomen with some eccentric stranding, 3 cm right adnexal cystic mass Chest x-ray film personally reviewed by me-hypoventilatory changes. COVID 19 PCR-not detected Assessment: -Acute delirium from a prior illness -acute viral enteritis. -Alessandro's disorder -Hypothyroid -Acute metabolic acidosis Plan: -Discussed with the patient and family the bedside. Keep the patient on a full liquid diet. Give IV fluid.'s expected improve slowly.
[2020-03-10 20:02] VITALS: RESP 16; TEMP 97.9
[2020-03-11] MEDS: LEVOTHYROXINE 88 MCG TAB PO SCH (05:50)
[2020-03-11 08:49] VITALS: BP 170/72; PULSE 63
[2020-03-11 08:58] LABS: HCT 34.9 % (34.0-46.0); HGB 12.2 gm/dL (11.4-16.0); MCH 32.1 pg (25.0-35.0); MCV 91.5 fL (80.0-100.0); Mean Platelet Volume 8.1; Platelet Count 147 k/uL (150-450); RBC 3.81 m/uL (3.80-5.40); RDW 12.6 % (11.5-15.5); WBC 6.2 k/uL (3.8-10.6)
[2020-03-11] MEDS: HYDROCORTISONE SUCCINATE 100 MG/2 ML VIAL IV SCH (09:16)
[2020-03-11] MEDS: CHOLECALCIFEROL 1,000 UNIT TAB PO SCH (09:16)
[2020-03-11] MEDS: FLUDROCORTISONE 0.1 MG TAB PO SCH (09:16)
[2020-03-11] MEDS: POTASSIUM CHLORIDE ER 10 MEQ TAB.ER.PRT PO SCH (09:16)
[2020-03-11] MEDS: MAGNESIUM OXIDE 400 MG TAB PO SCH (09:16)
[2020-03-11] MEDS: ASCORBIC ACID 500 MG TAB PO SCH (09:16)
[2020-03-11] MEDS: PANTOPRAZOLE 40 MG TABLET PO SCH (09:17)
[2020-03-11 09:40] LABS: African American GFR (CKD) >90 (>60 ml/min/1.73 sqM); Anion Gap 4 mmol/L; Blood Urea Nitrogen 5 mg/dL (7-17); Calcium 8.8 mg/dL (8.4-10.2); Carbon Dioxide 22 mmol/L (22-30); Chloride 111 mmol/L (98-107); Glucose 90 mg/dL (74-99); Non-African American GFR(CKD) >90 (>60 ml/min/1.73 sqM); Potassium 3.5 mmol/L (3.5-5.1); Sodium 137 mmol/L (137-145)
[2020-03-11] MEDS: ENOXAPARIN 40 MG/0.4 ML SYRINGE SQ SCH (11:16)
--- NOTE | 2020-03-11 16:58 | P.DS ---
Providers Date of admission: 03/09/20 12:38 Expected date of discharge: 03/11/20 Attending physician: Artis Bailon Primary care physician: Guerrero Reaves [facility] Course: Chief Complaint: Confused History of presenting complaint: This is a very pleasant 70-year-old patient of Dr. Guerrero Reaves. We'll make stable medical conditions include GERD, hypothyroid, Sycamore's disease. Patient lives with her sister and [id number]. Patient for 1 day was noted to becoming disoriented at home. Fever. Had some burning in the urine. No shortness of breath. Patient's other chronic occasional cough. No headache or dizziness no double vision. I saw the patient earlier today. Feeling better. Assess some urinary frequency 2. Also this evening at 2 or 3 loose bowel movements. Feeling bit better. Not confused anymore. Admitted with-likely viral enteritis. Causing initial delirium at home. Patient's lungs have abdominal discomfort pain. And having already had 4 or 5 bowel movements Today-doing much better. Only had one loose bowel movement.. Slight abdominal discomfort. Tolerating light diet. Patient came to gone. Discussed at length. To keep a soft bland diet. Expect symptoms to improve with a few days. No fever no chills. No white count. Physical examination: VITAL SIGNS: Recent 0.9, 63, 16, 11 4/57, 97% room air GENERAL: Laying in bed, awake EYES: Pupils equal. Conjunctiva normal. HEENT: External appearance of nose and ears normal, oral cavity grossly normal. NECK: JVD not raised; masses not palpable. HEART: First and second heart sounds are normal; no edema. LUNGS: Respiratory rate normal; clear to auscultation. ABDOMEN: Soft, minimally tender, no guarding or rigidity. liver spleen not palpable, no masses palpable. PSYCH: Alert and oriented x3; mood and affect normal. INVESTIGATIONS, reviewed in the clinical context: White count 6.2 hemoglobin 12.2 potassium 3.5 creatinine 0.43 Previous testing White count 10.4 hemoglobin 15.9 potassium 3.4 creatinine 0.62 TSH 1.8 Today negative for leukoesterase, negative for nitrite EKG tracing personally reviewed by in-normal sinus rhythm Computed tomography scan of the abdomen-dilated small bowel loops in the mid abdomen with some eccentric stranding, 3 cm right adnexal cystic mass Chest x-ray film personally reviewed by me-hypoventilatory changes. COVID 19 PCR-not detected Assessment: -Acute delirium from a vital illness, POA -acute viral enteritis., POA -Sycamore's disorder -Hypothyroid -Acute metabolic acidosis Disposition: Home Patient Condition at Discharge: Stable Plan - Discharge Summary New Discharge Prescriptions: Continue Levothyroxine Sodium [Synthroid] 88 mcg PO QAM Hydrocortisone [Cortef] 10 mg PO TID Fludrocortisone Acetate 0.05 mg PO QAM Cholecalciferol [Vitamin D3 (25 Mcg = 1000 Iu)] 2,000 unit PO DAILY Ascorbic Acid [Vitamin C] 500 mg PO DAILY Ubidecarenone [Co Q-10] 100 mg PO DAILY Potassium Plus 1 tab PO DAILY Omeprazole 20 mg PO DAILY Magnesium Plus 1 tab PO DAILY Ergocalciferol [Vitamin D2 (DRISDOL)] 50,000 units PO DIRECTED Para-Pack 1 tab PO DAILY Li-Zyme 1 cap PO DAILY Alendronate Sodium [Fosamax] 70 mg PO TH Discharge Medication List Cholecalciferol [Vitamin D3 (25 Mcg = 1000 Iu)] 2,000 unit PO DAILY 10/29/16 [History] Fludrocortisone Acetate 0.05 mg PO QAM 10/29/16 [History] Hydrocortisone [Cortef] 10 mg PO TID 10/29/16 [History] Levothyroxine Sodium [Synthroid] 88 mcg PO QAM 10/29/16 [History] Alendronate Sodium [Fosamax] 70 mg PO TH 03/09/20 [History] Ascorbic Acid [Vitamin C] 500 mg PO DAILY 03/09/20 [History] Ergocalciferol [Vitamin D2 (DRISDOL)] 50,000 units PO DIRECTED 03/09/20 [History] Li-Zyme 1 cap PO DAILY 03/09/20 [History] Magnesium Plus 1 tab PO DAILY 03/09/20 [History] Omeprazole 20 mg PO DAILY 03/09/20 [History] Para-Pack 1 tab PO DAILY 03/09/20 [History] Potassium Plus 1 tab PO DAILY 03/09/20 [History] Ubidecarenone [Co Q-10] 100 mg PO DAILY 03/09/20 [History] Follow up Appointment(s)/Referral(s): Guerrero Reaves MD [Primary Care Provider] - 1-2 days (Office closed at time of discharge please call ThursdayMarch 12 to set up a follow up appointment) Patient Instructions/Handouts: Soft Diet (DC), Enteritis (DC) Activity/Diet/Wound Care/Special Instructions: soft bland diet
[2020-03-12] MEDS ORDERED: ERGOCALCIFEROL 50,000 UNIT CAP PO SCH (09:00)
[2020-03-15] MEDS ORDERED: NON FORMULARY DRUG (Alendronate Sodium [Fosamax] 70 MG) PO SCH (18:15)
== END 2020-03-11 12:40 | disposition home or self-care (01) | DRG 392 ==
LOC: EC 07:50 → 4SSUR 12:38
PROVIDERS: ADMIT Hospitalist; ATTEND Hospitalist
DX: A08.4 Viral intestinal infection, unspecified (principal); F05 Delirium due to known physiological condition; E27.1 Primary adrenocortical insufficiency; E87.2 Acidosis; N83.291 Other ovarian cyst, right side; E03.9 Hypothyroidism, unspecified; Z20.828 Contact with and (suspected) exposure to other viral communicable diseases; K21.9 Gastro-esophageal reflux disease without esophagitis; Z79.83 Long term (current) use of bisphosphonates; Z79.899 Other long term (current) drug therapy; Z91.040 Latex allergy status; Z90.710 Acquired absence of both cervix and uterus; Z86.018 Personal history of other benign neoplasm; Z80.3 Family history of malignant neoplasm of breast; Z80.0 Family history of malignant neoplasm of digestive organs; Z79.890 Hormone replacement therapy; Z79.52 Long term (current) use of systemic steroids
CPT/HCPCS: 36415; 51701; 71045; 74177; 80048; 80053; 81001; 83605; 84145; 84439; 84443; 85025; 85027; 85610; 85730; 87040; 87328; 87329; 93005; 96360; 96361; 96374; 99285

== ENCOUNTER → 2020-03-29 | Outpatient (CLI) | payer MEDICARE ==
--- NOTE | 2020-03-29 08:03 | US ---
EXAMINATION TYPE: US pelvic complete DATE OF EXAM: 03/29/2020 COMPARISON: NONE CLINICAL HISTORY: Cyst of rt ovary N83.201. recent CT showed right ov cyst, hysterectomy and left oop horectomy TECHNIQUE: TA. Transabdominal sonographic images of the pelvis were acquired. No TV, patient state s she has atrophied and unable to have pelvic exams now Date of LMP: hysterectomy EXAM MEASUREMENTS: Uterus: Surgically absent Endometrial Stripe: Surgically absent Right Ovary: 2.8 x 2.9 x 3.1cm Left Ovary: Surgically absent 1. Uterus: Surgically absent 2. Endometrium: Surgically absent 3. Right Ovary: 2.2 x 2.4 x 2.4cm cyst 4. Left Ovary: Surgically absent 5. Bilateral Adnexa: wnl 6. Posterior cul-de-sac: wnl IMPRESSION: 1. Postcholecystectomy. 2. There is a 2.4 cm right ovarian cyst. The uterus is not seen and should be correlated clinically t o determine if the ovaries removed at the time of surgery. Differential diagnosis would include ovari an cyst or cystic masses, paraovarian cyst, and cystic dilation of a fallopian tube remnant. Cystic l esion in the adnexa a postmenopausal woman is somewhat atypical correlate with CA 125.
== END | disposition home or self-care (01) ==
LOC: RADUSWWP 07:24
PROVIDERS: ATTEND Family Medicine
DX: N83.201 Unspecified ovarian cyst, right side (principal)
CPT/HCPCS: 76856

== ENCOUNTER → 2020-05-17 | Outpatient (CLI) | payer MEDICARE ==
--- NOTE | 2020-05-18 12:04 | MM ---
Reason for exam: screening (asymptomatic). Last mammogram was performed 2 years and 2 months ago. History: Patient is nulliparous. Family history of breast cancer in sister. Physical Findings: A clinical breast exam by your physician is recommended on an annual basis and results should be correlated with mammographic findings. MG 3D Screening Mammo W/Cad Bilateral CC and MLO view(s) were taken. Prior study comparison: March 29, 2018, bilateral MG 3d screening mammo w/cad. The breast tissue is heterogeneously dense. This may lower the sensitivity of mammography. Stable benign calcifications. There is no discrete abnormality. No significant changes when compared with prior studies. ASSESSMENT: Benign, BI-RAD 2 RECOMMENDATION: Routine screening mammogram of both breasts in 1 year.
== END | disposition home or self-care (01) ==
LOC: RADMAMWWP 09:48
PROVIDERS: ATTEND Family Medicine
DX: Z12.31 Encounter for screening mammogram for malignant neoplasm of breast (principal)
CPT/HCPCS: 77063; 77067

== ENCOUNTER → 2020-06-18 | Outpatient (CLI) | payer MEDICARE ==
--- NOTE | 2020-06-18 15:28 | US ---
EXAMINATION TYPE: US pelvic complete DATE OF EXAM: 06/18/2020 COMPARISON: Ultrasound 03/29/2020 CLINICAL HISTORY: 70-year-old female N83.0 OVARIAN CYST. Follow up right ovarian cyst; hysterectomy a nd left oophorectomy and partial right oophorectomy. TECHNIQUE: Transabdominal sonographic images of the pelvis were acquired. Patient deferred TV US du e to organ atrophy per patient. Date of LMP: hysterectomy FINDINGS: EXAM MEASUREMENTS: Uterus: surgically absent Right Ovary: 3.7 x 3.1 x 2.8 cm Left Ovary: surgically absent 1. Right Ovary: ovarian cyst seen = 2.9 x 3.1 x 2.9cm (versus 2.4 x 2.4 x 2.2 cm, previously). 2. Left Ovary: surgically removed 3. Bilateral Adnexa: wnl 4. Posterior cul-de-sac: wnl IMPRESSION: 1. 3.1 x 2.9 cm cyst of the right ovary (versus 2.4 x 2.2 cm on 03/29/2020). Ongoing three-month follo w-up recommended given interval enlargement. Consider pelvic MRI for more detailed parenchymal assess ment. 2. Status post hysterectomy and left oophorectomy.
== END | disposition home or self-care (01) ==
LOC: RADUSWWP 12:15
PROVIDERS: ATTEND Obstetrics & Gynecology
DX: N83.201 Unspecified ovarian cyst, right side (principal); Z90.721 Acquired absence of ovaries, unilateral; Z90.710 Acquired absence of both cervix and uterus
CPT/HCPCS: 76856

== ENCOUNTER → 2020-09-24 | Outpatient (CLI) | payer MEDICARE ==
--- NOTE | 2020-09-25 09:09 | NM ---
EXAMINATION TYPE: NM parathyroid w/spect DATE OF EXAM: 09/24/2020 COMPARISON: NONE HISTORY: Elevated calcium levels TECHNIQUE: Following administration of 25.2 mCi Tc99m Sestamibi. Anterior projection images of the neck and ches t were obtained 10 minutes and 3 hours post injection. SPECT images of the neck and chest were obtai otto and reconstructed in three axes. FINDINGS: Thyroid tracer washout: Delayed images demonstrate near-complete tracer washout from the thyroid. Parathyroid uptake: None. The two-hour delayed images demonstrate focal abnormal persistent uptake in the region of the left parathyroid glands suspicious for parathyroid adenoma. Normal uptake: There is physiological tracer uptake in the myocardium, liver, salivary glands, and th yroid gland. IMPRESSION: Persistent uptake in the left parathyroid bed suspicious for parathyroid adenoma
== END | disposition home or self-care (01) ==
LOC: RADNMMAIN 11:16
PROVIDERS: ATTEND Internal Medicine
DX: R93.89 Abnormal findings on diagnostic imaging of other specified body structures (principal); E21.0 Primary hyperparathyroidism
CPT/HCPCS: 78071; A9500

== ENCOUNTER → 2020-10-01 | Outpatient (CLI) | payer MEDICARE ==
--- NOTE | 2020-10-01 12:39 | US ---
EXAMINATION TYPE: US thyroid st tissue head/neck DATE OF EXAM: 10/01/2020 COMPARISON: 09/24/2020 CLINICAL HISTORY: 70-year-old female E21.0 Primary hyperparathyroidism. [place]'s disease on synthroi d for years. TECHNIQUE: Multiple sonographic images of the thyroid gland are obtained. 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 Right parathyroid not seen. Left parathyroid measures .6 x .4 x .3 cm. IMPRESSION: Small thyroid gland suggesting chronic hypothyroidism. 6 mm nodule posterior lower left thyroid lobe probably the parathyroid adenoma seen on recent nuclear medicine parathyroid scan of 09/24/2020
== END | disposition home or self-care (01) ==
LOC: RADUSWWP 11:01
PROVIDERS: ATTEND Internal Medicine
DX: E04.1 Nontoxic single thyroid nodule (principal)
CPT/HCPCS: 76536

== ENCOUNTER → 2020-10-01 | Outpatient (CLI) | payer MEDICARE ==
--- NOTE | 2020-10-01 12:25 | US ---
EXAMINATION TYPE: US pelvic complete DATE OF EXAM: 10/01/2020 COMPARISON: 03/29/2020 and 06/18/2020 CLINICAL HISTORY: 70-year-old female Previous Rt ovarian cyst N83.0. 3 month follow up to rt cyst. Pa tient with history of partial hysterectomy TECHNIQUE: Transabdominal sonographic images of the pelvis were acquired. FINDINGS: EXAM MEASUREMENTS: Uterus: Surgically absent Right Ovary: 3.0 x 2.4 x 3.5 cm Left Ovary: Obscured by bowel gas. 1. Uterus: Surgically absent 2. Endometrium: Surgically absent 3. Right Ovary: Simple appearing cyst measuring 3.0 x2.4 x 3.5 cm (versus 3.1 x 2.0 x 2.9 cm, on 08/2020. 2.4 cm on 03/29/2020). 4. Left Ovary: Obscured by overlying bowel gas 5. Bilateral Adnexa: wnl 6. Posterior cul-de-sac: wnl IMPRESSION: 1. Status post hysterectomy. Left ovary could not be visualized. 2. Right adnexal cyst measuring 3.5 cm currently versus 3.1 cm on 06/18/2020 and 2.4 cm on 03/29/2020. There seems to be gradual progressive growth raising the possibility of a cystic ovarian epithelial neoplasm, probably benign. Continued follow-up recommended.
== END | disposition home or self-care (01) ==
LOC: RADUSWWP 10:59
PROVIDERS: ATTEND Obstetrics & Gynecology
DX: N83.01 Follicular cyst of right ovary (principal); Z90.710 Acquired absence of both cervix and uterus
CPT/HCPCS: 76856

== ENCOUNTER 2021-07-31 10:28 | Emergency (ER) | payer MEDICARE ==
[2021-07-31] MEDS ORDERED: SODIUM CHLORIDE 0.9% 1,000 ML IV ONE (10:39)
[2021-07-31] MEDS ORDERED: HYDROCORTISONE SUCCINATE 100 MG/2 ML VIAL IV STA (10:40)
[2021-07-31] MEDS ORDERED: IBUPROFEN 600 MG TAB PO STA (10:48)
[2021-07-31] MEDS ORDERED: ACETAMINOPHEN TAB 500 MG TAB PO STA (10:48)
--- NOTE | 2021-07-31 11:27 | XR ---
EXAMINATION TYPE: XR chest 2V DATE OF EXAM: 07/31/2021 COMPARISON: 03/09/2020 HISTORY: 71-year-old female with cough TECHNIQUE: AP and lateral views FINDINGS: Heart limits of normal in size. Diffuse interstitial prominence. Low lung volumes. No ellie consolida tion or pleural effusion seen. Surgical clips seems to project at the medial right apex. IMPRESSION: Borderline heart size. Interstitial changes could reflect mild pulmonary vascular congestion, bronchi tis, asthma, or atypical pneumonias. Clinically correlate.
[2021-07-31 11:41] LABS: Calcium 8.5 mg/dL (8.4-10.2); Magnesium 1.8 mg/dL (1.6-2.3); Potassium 3.5 mmol/L (3.5-5.1); Total Protein 6.7 g/dL (6.3-8.2)
[2021-07-31 11:55] LABS: Basophils # (A) 0.1 k/uL (0-0.2); Basophils % (A) 1 %; Eosinophils # (A) 0.2 k/uL (0-0.7); Eosinophils % (A) 2 %; HCT 42.5 % (34.0-46.0); HGB 14.7 gm/dL (11.4-16.0); Lymphocytes # (A) 1.2 k/uL (1.0-4.8); Lymphocytes % (A) 14 %; MCH 31.4 pg (25.0-35.0); MCHC 34.7 g/dL (31.0-37.0); MCV 90.4 fL (80.0-100.0); Mean Platelet Volume 8.2; Monocytes # (A) 0.9 k/uL (0-1.0); Monocytes % (A) 11 %; Neutrophils % (A) 70 %; Platelet Count 167 k/uL (150-450); RDW 12.3 % (11.5-15.5); WBC 8.5 k/uL (3.8-10.6)
[2021-07-31] MEDS ORDERED: BAMLANIVIMAB (EUA) 700 MG, ETESEVIMAB (EUA) 1,400 MG in SODIUM CHLORIDE 0.9% 50 ML IVPB ONE (12:30)
[2021-07-31] MEDS ORDERED: SODIUM CHLORIDE 0.9% 50 ML IVPB ONE (13:00)
--- NOTE | 2021-07-31 14:15 | ED ---
General Adult HPI - General Chief complaint: Weakness Stated complaint: weakness Time Seen by Provider: 07/31/21 10:37 Source: patient, EMS, RN notes reviewed Mode of arrival: EMS Limitations: no limitations - History of Present Illness Initial comments: This is a 71-year-old female presents emergency Department with chief complaint of possible COVID-19. Patient had exposure at home of COVID-19, woke up with increasing weakness, fevers chills cough congestion body aches. Patient has known Love's has not decreased her steroids as symptoms started today. Denies any chest pain denies any focal weakness no vomiting no diarrhea no constipation. - Related Data Home Medications Medication Instructions Recorded Confirmed Fludrocortisone Acetate 0.05 mg PO DAILY 10/29/16 07/31/21 Hydrocortisone [Cortef] 10 mg PO TID 10/29/16 07/31/21 Levothyroxine Sodium [Synthroid] 88 mcg PO DAILY 10/29/16 07/31/21 fluocinolone acetonide oiL 5 drops BOTH EARS BID PRN 07/31/21 07/31/21 [fluocinolone acetonide oiL 0.01% (Otic)] Allergies Allergy/AdvReac Type Severity Reaction Status Date / Time latex Allergy Rash/Hives Verified 07/31/21 12:29 Review of Systems ROS Statement: Those systems with pertinent positive or pertinent negative responses have been documented in the HPI. ROS Other: All systems not noted in ROS Statement are negative. Past Medical History Past Medical History: GERD/Reflux, Thyroid Disorder Additional Past Medical History / Comment(s): Love's,daily steroid History of Any Multi-Drug Resistant Organisms: None Reported Past Surgical History: Hysterectomy Additional Past Surgical History / Comment(s): neck surgery-benign tumor Past Anesthesia/Blood Transfusion Reactions: No Reported Reaction Additional Past Anesthesia/Blood Transfusion Reaction / Comment(s): tearful when waking up from anesthesia,Panic Attacks with needles. Past Psychological History: No Psychological Hx Reported Smoking Status: Never smoker Past Alcohol Use History: None Reported Past Drug Use History: None Reported - Past Family History Sister(s) Family Medical History: Cancer Additional Family Medical History / Comment(s): colon and breast General Exam Limitations: no limitations General appearance: alert, in no apparent distress Head exam: Present: atraumatic, normocephalic, normal inspection Eye exam: Present: normal appearance, PERRL, EOMI. Absent: scleral icterus, conjunctival injection, periorbital swelling ENT exam: Present: normal exam, normal oropharynx, mucous membranes moist Neck exam: Present: normal inspection. Absent: tenderness, meningismus, lymphadenopathy Respiratory exam: Present: normal lung sounds bilaterally. Absent: respiratory distress, wheezes, rales, rhonchi, stridor Cardiovascular Exam: Present: regular rate, normal rhythm, normal heart sounds. Absent: systolic murmur, diastolic murmur, rubs, gallop, clicks Neurological exam: Present: alert, oriented X3, CN II-XII intact, reflexes normal. Absent: motor sensory deficit Skin exam: Present: warm, dry, intact, normal color. Absent: rash Course Vital Signs 07/31/21 07/31/21 10:36 11:28 Temperature 102.8 F H Pulse Rate 83 81 Respiratory 18 18 Rate Blood Pressure 173/79 173/79 O2 Sat by Pulse 95 94 L Oximetry Medical Decision Making - Medical Decision Making Patient has no focal weakness. Patient is generally weak from COVID-19. Patient was given hydrocortisone for her Love's disease. Patient does not appear to be in a crisis. Patient did receive mom, and otherwise will be discharged in stable condition return parameters discussed. - Lab Data Result diagrams: 07/31/21 10:54 07/31/21 10:54 Lab Results 07/31/21 07/31/21 07/31/21 Range/Units 10:54 10:54 10:54 WBC 8.5 (3.8-10.6) k/uL RBC 4.70 (3.80-5.40) m/uL Hgb 14.7 (11.4-16.0) gm/dL Hct 42.5 (34.0-46.0) % MCV 90.4 (80.0-100.0) fL MCH 31.4 (25.0-35.0) pg MCHC 34.7 (31.0-37.0) g/dL RDW 12.3 (11.5-15.5) % Plt Count 167 (150-450) k/uL MPV 8.2 Neutrophils % 70 % Lymphocytes % 14 % Monocytes % 11 % Eosinophils % 2 % Basophils % 1 % Neutrophils # 6.0 (1.3-7.7) k/uL Lymphocytes # 1.2 (1.0-4.8) k/uL Monocytes # 0.9 (0-1.0) k/uL Eosinophils # 0.2 (0-0.7) k/uL Basophils # 0.1 (0-0.2) k/uL Sodium 135 L (137-145) mmol/L Potassium 3.5 (3.5-5.1) mmol/L Chloride 102 (98-107) mmol/L Carbon Dioxide 24 (22-30) mmol/L Anion Gap 9 mmol/L BUN 16 (7-17) mg/dL Creatinine 0.89 (0.52-1.04) mg/dL Est GFR (CKD-EPI)AfAm 74 (>60 ml/min/1.73 sqM) Est GFR (CKD-EPI)NonAf 65 (>60 ml/min/1.73 sqM) Glucose 119 H (74-99) mg/dL Calcium 8.5 (8.4-10.2) mg/dL Magnesium 1.8 (1.6-2.3) mg/dL Total Bilirubin 1.0 (0.2-1.3) mg/dL AST 28 (14-36) U/L ALT 19 (4-34) U/L Alkaline Phosphatase 54 (38-126) U/L Troponin I <0.012 (0.000-0.034) ng/mL Total Protein 6.7 (6.3-8.2) g/dL Albumin 4.0 (3.5-5.0) g/dL Coronavirus (PCR) (Not Detectd) 07/31/21 Range/Units 10:54 WBC (3.8-10.6) k/uL RBC (3.80-5.40) m/uL Hgb (11.4-16.0) gm/dL Hct (34.0-46.0) % MCV (80.0-100.0) fL MCH (25.0-35.0) pg MCHC (31.0-37.0) g/dL RDW (11.5-15.5) % Plt Count (150-450) k/uL MPV Neutrophils % % Lymphocytes % % Monocytes % % Eosinophils % % Basophils % % Neutrophils # (1.3-7.7) k/uL Lymphocytes # (1.0-4.8) k/uL Monocytes # (0-1.0) k/uL Eosinophils # (0-0.7) k/uL Basophils # (0-0.2) k/uL Sodium (137-145) mmol/L Potassium (3.5-5.1) mmol/L Chloride (98-107) mmol/L Carbon Dioxide (22-30) mmol/L Anion Gap mmol/L BUN (7-17) mg/dL Creatinine (0.52-1.04) mg/dL Est GFR (CKD-EPI)AfAm (>60 ml/min/1.73 sqM) Est GFR (CKD-EPI)NonAf (>60 ml/min/1.73 sqM) Glucose (74-99) mg/dL Calcium (8.4-10.2) mg/dL Magnesium (1.6-2.3) mg/dL Total Bilirubin (0.2-1.3) mg/dL AST (14-36) U/L ALT (4-34) U/L Alkaline Phosphatase (38-126) U/L Troponin I (0.000-0.034) ng/mL Total Protein (6.3-8.2) g/dL Albumin (3.5-5.0) g/dL Coronavirus (PCR) Detected A (Not Detectd) Disposition Clinical Impression: COVID-19 Disposition: HOME SELF-CARE Condition: Stable Instructions (If sedation given, give patient instructions): Coronavirus Disease 2019 (COVID-19) Additional Instructions: Please return to the Emergency Department if symptoms worsen or any other concerns. Is patient prescribed a controlled substance at d/c from ED?: No Referrals: Guerrero Reaves MD [Primary Care Provider] - 1-2 days Time of Disposition: 14:14
[2021-07-31 14:41] VITALS: BP 116/68; PULSE 71; RESP 16; TEMP 98.5
== END 2021-07-31 14:41 | disposition home or self-care (01) ==
LOC: EC 10:28
DX: U07.1 COVID-19 (principal); K21.9 Gastro-esophageal reflux disease without esophagitis; E07.9 Disorder of thyroid, unspecified; Z91.040 Latex allergy status; Z90.710 Acquired absence of both cervix and uterus
CPT/HCPCS: 99285 ×2; 96374; 96361 ×3; 96375; 36415; 93005; 80053; 83735; 84484; 85025; 87635; 71046; M0245; J1720; J3490

== ENCOUNTER 2021-12-23 15:03 | Emergency (ER) | payer MEDICARE ==
[2021-12-23 15:21] VITALS: TEMP 99
--- NOTE | 2021-12-23 18:24 | ED ---
General Adult HPI - General Chief complaint: Abdominal Pain Stated complaint: not able to urinate Time Seen by Provider: 12/23/21 18:10 Source: patient, RN notes reviewed, old records reviewed Mode of arrival: ambulatory Limitations: no limitations - History of Present Illness Initial comments: Well-appearing 70-year-old female sitting uncomfortably on side of cart complaining of inability to urinate and lower abdominal pain/pressure. She states that she has been having decreased ability to urinate over the past 2 days, having to push to get urine out. Today she has been unable to urinate. Denies any fevers, no nausea, vomiting or diarrhea. She denies hematuria. No previous history of urinary retention. She has a history of Ten Mile's disease, thyroidectomy and GERD. -: days(s) (3) Location: abdomen (lower abdomen bladder fullness) Radiation: non-radiation Severity scale (1-10): 7 Quality: constant, other (pressure) Consistency: constant Improves with: none Associated Symptoms: other (inability to urinate) Treatments Prior to Arrival: none - Related Data Home Medications Medication Instructions Recorded Confirmed Fludrocortisone Acetate 0.05 mg PO DAILY 10/29/16 07/31/21 Hydrocortisone [Cortef] 10 mg PO TID 10/29/16 07/31/21 Levothyroxine Sodium [Synthroid] 88 mcg PO DAILY 10/29/16 07/31/21 fluocinolone acetonide oiL 5 drops BOTH EARS BID PRN 07/31/21 07/31/21 [fluocinolone acetonide oiL 0.01% (Otic)] Allergies Allergy/AdvReac Type Severity Reaction Status Date / Time latex Allergy Rash/Hives Verified 07/31/21 12:29 Sulfa (Sulfonamide Allergy Rash/Hives Verified 12/23/21 15:21 Antibiotics) Review of Systems ROS Statement: Those systems with pertinent positive or pertinent negative responses have been documented in the HPI. ROS Other: All systems not noted in ROS Statement are negative. Past Medical History Past Medical History: GERD/Reflux, Thyroid Disorder Additional Past Medical History / Comment(s): Ten Mile's,daily steroid History of Any Multi-Drug Resistant Organisms: None Reported Past Surgical History: Hysterectomy Additional Past Surgical History / Comment(s): neck surgery-benign tumor Past Anesthesia/Blood Transfusion Reactions: No Reported Reaction Additional Past Anesthesia/Blood Transfusion Reaction / Comment(s): tearful when waking up from anesthesia,Panic Attacks with needles. Past Psychological History: No Psychological Hx Reported Smoking Status: Never smoker Past Alcohol Use History: None Reported Past Drug Use History: None Reported - Past Family History Sister(s) Family Medical History: Cancer Additional Family Medical History / Comment(s): colon and breast General Exam Limitations: no limitations General appearance: alert, in no apparent distress Head exam: Present: atraumatic Neck exam: Present: full ROM, other (Thyroidectomy scar). Absent: tenderness, meningismus, thyromegaly Respiratory exam: Present: normal lung sounds bilaterally. Absent: respiratory distress, accessory muscle use Cardiovascular Exam: Present: regular rate, normal rhythm. Absent: JVD GI/Abdominal exam: Present: soft, distended, tenderness, other (Bladder distention bladder scan shows 875 mL). Absent: guarding, rebound, rigid External exam: Present: normal external exam. Absent: erythema, swelling, lesions, lacerations, ecchymosis Speculum exam: Absent: erythema, vaginal discharge, vaginal bleeding Extremities exam: Present: normal capillary refill. Absent: pedal edema Back exam: Absent: tenderness, CVA tenderness (R), CVA tenderness (L), rash noted Neurological exam: Present: alert, oriented X3 Psychiatric exam: Present: normal affect, normal mood, anxious Skin exam: Present: warm, dry, normal color. Absent: cyanosis, diaphoretic Course Vital Signs 12/23/21 12/23/21 15:18 20:30 Temperature 99 F Pulse Rate 76 74 Respiratory 22 16 Rate Blood Pressure 170/76 163/70 O2 Sat by Pulse 96 97 Oximetry Medical Decision Making - Medical Decision Making Patient presents with 3 days of difficulty urinating. Today unable to urinate with urinary retention. Bladder scan shows 875 ml, catheter was placed by myself with 1000 ml return yellow urine. No lesions or prolapse seen, urethra unremarkable. Patient reported relief of the pressure and pain after yeager insertion. She has had no fevers, no nausea, vomiting or diarrhea. No previous history of urinary retention. Urinalysis is clear of infection, no evidence of hematuria. No evidence of leukocytosis. Hemoglobin and hematocrit are stable. Electrolytes unremarkable. Ultrasound renals and bladder showed no evidence of hydronephrosis. No nephrolithiasis or masses identified. Patient will be given a leg bag and discharged with a Yeager catheter in place with follow-up to urology. She was directed to return to the emergency room with any new or concerning symptoms including no urine in catheter, fevers, abdominal pain or back pain. Patient is agreeable to this plan of care. - Lab Data Result diagrams: 12/23/21 18:50 12/23/21 18:50 Lab Results 12/23/21 12/23/21 12/23/21 Range/Units 18:50 18:50 18:50 WBC 11.6 H (3.8-10.6) k/uL RBC 4.84 (3.80-5.40) m/uL Hgb 15.1 (11.4-16.0) gm/dL Hct 44.0 (34.0-46.0) % MCV 91.0 (80.0-100.0) fL MCH 31.2 (25.0-35.0) pg MCHC 34.3 (31.0-37.0) g/dL RDW 12.5 (11.5-15.5) % Plt Count 189 (150-450) k/uL MPV 8.0 Neutrophils % 68 % Lymphocytes % 22 % Monocytes % 6 % Eosinophils % 2 % Basophils % 1 % Neutrophils # 7.9 H (1.3-7.7) k/uL Lymphocytes # 2.5 (1.0-4.8) k/uL Monocytes # 0.7 (0-1.0) k/uL Eosinophils # 0.3 (0-0.7) k/uL Basophils # 0.1 (0-0.2) k/uL Sodium 136 L (137-145) mmol/L Potassium 4.2 (3.5-5.1) mmol/L Chloride 105 (98-107) mmol/L Carbon Dioxide 24 (22-30) mmol/L Anion Gap 7 mmol/L BUN 16 (7-17) mg/dL Creatinine 0.72 (0.52-1.04) mg/dL Est GFR (CKD-EPI)AfAm >90 (>60 ml/min/1.73 sqM) Est GFR (CKD-EPI)NonAf 84 (>60 ml/min/1.73 sqM) Glucose 105 H (74-99) mg/dL Calcium 8.5 (8.4-10.2) mg/dL Total Bilirubin 0.8 (0.2-1.3) mg/dL AST 26 (14-36) U/L ALT 16 (4-34) U/L Alkaline Phosphatase 57 (38-126) U/L Total Protein 7.5 (6.3-8.2) g/dL Albumin 4.4 (3.5-5.0) g/dL Urine Color Light Yellow Urine Appearance Clear (Clear) Urine pH 6.5 (5.0-8.0) Ur Specific [place] 1.011 (1.001-1.035) Urine Protein Negative (Negative) Urine Glucose (UA) Negative (Negative) Urine Ketones Negative (Negative) Urine Blood Negative (Negative) Urine Nitrite Negative (Negative) Urine Bilirubin Negative (Negative) Urine Urobilinogen <2.0 (<2.0) mg/dL Ur Leukocyte Esterase Negative (Negative) Disposition Clinical Impression: Acute urinary retention Disposition: HOME SELF-CARE Condition: Good Instructions (If sedation given, give patient instructions): Yeager Catheter Placement and Care (ED), Acute Urinary Retention in Women (ED) Additional Instructions: Follow-up with urology this week. Return to the emergency room with any new or concerning symptoms including pain, fevers, or no urine drainage from Yeager catheter. Take Tylenol as needed for discomfort. Is patient prescribed a controlled substance at d/c from ED?: No Referrals: Guerrero Reaves MD [Primary Care Provider] - 1-2 days Bradford Souza MD [STAFF PHYSICIAN] - 1-2 days Time of Disposition: 19:53
[2021-12-23 19:11] LABS: Basophils # (A) 0.1 k/uL (0-0.2); Basophils % (A) 1 %; Eosinophils # (A) 0.3 k/uL (0-0.7); Eosinophils % (A) 2 %; HGB 15.1 gm/dL (11.4-16.0); Lymphocytes # (A) 2.5 k/uL (1.0-4.8); Lymphocytes % (A) 22 %; MCH 31.2 pg (25.0-35.0); MCHC 34.3 g/dL (31.0-37.0); Monocytes # (A) 0.7 k/uL (0-1.0); Monocytes % (A) 6 %; Neutrophils # (A) 7.9 k/uL (1.3-7.7); Neutrophils % (A) 68 %; Platelet Count 189 k/uL (150-450); RBC 4.84 m/uL (3.80-5.40); RDW 12.5 % (11.5-15.5); WBC 11.6 k/uL (3.8-10.6)
[2021-12-23 19:12] LABS: Appearance,Urine Clear (Clear); Bilirubin,Urine Negative (Negative); Blood,Urine Negative (Negative); Color,Urine Light Yellow; Glucose,Urine (UA) Negative (Negative); Ketones,Urine Negative (Negative); Leukocyte Esterase,Urine Negative (Negative); Nitrite,Urine Negative (Negative); PH, Urine 6.5 (5.0-8.0); Protein,Urine Negative (Negative); Specific Gravity,Urine 1.011 (1.001-1.035); Urobilinogen,Urine <2.0 mg/dL (<2.0)
--- NOTE | 2021-12-23 19:19 | US ---
EXAMINATION TYPE: US renals and bladder DATE OF EXAM: 12/23/2021 COMPARISON: NONE CLINICAL HISTORY: uti, back pain, hx of kidney stones. Patient denies hx of kidney stones. Patient st ates she is unable to urinate. EXAM MEASUREMENTS: Right Kidney: 8.4 x 4.6 x 5.0 cm Left Kidney: 9.1 x 5.4 x 4.6 cm Right Kidney: No hydronephrosis or masses seen Left Kidney: Obscured by overlying bowel gas Bladder: Yeager cath was inserted and patient has had good urine output with cath. There is urine seen surrounding yeager. There is no evidence for hydronephrosis at this point in time. No nephrolithiasis is seen. No lissa s are identified. The urinary bladder is anechoic. Bilateral ureteral jets are seen. IMPRESSION: 1. No evidence of hydronephrosis. 2. Yeager catheter small amount of fluid within urinary bladder.
[2021-12-23 19:29] LABS: Potassium 4.2 mmol/L (3.5-5.1)
[2021-12-23 19:30] LABS: ALT 16 U/L (4-34); AST 26 U/L (14-36); African American GFR (CKD) >90 (>60 ml/min/1.73 sqM); Albumin 4.4 g/dL (3.5-5.0); Alkaline Phosphatase 57 U/L (38-126); Anion Gap 7 mmol/L; Blood Urea Nitrogen 16 mg/dL (7-17); Calcium 8.5 mg/dL (8.4-10.2); Carbon Dioxide 24 mmol/L (22-30); Chloride 105 mmol/L (98-107); Glucose 105 mg/dL (74-99); Non-African American GFR(CKD) 84 (>60 ml/min/1.73 sqM); Sodium 136 mmol/L (137-145); Total Bilirubin 0.8 mg/dL (0.2-1.3); Total Protein 7.5 g/dL (6.3-8.2)
[2021-12-23 20:31] VITALS: BP 163/70; PULSE 74; RESP 16
== END 2021-12-23 21:13 | disposition home or self-care (01) ==
LOC: EC 15:03
DX: R33.9 Retention of urine, unspecified (principal); K21.9 Gastro-esophageal reflux disease without esophagitis; E07.9 Disorder of thyroid, unspecified; Z91.040 Latex allergy status; Z88.2 Allergy status to sulfonamides; Z90.710 Acquired absence of both cervix and uterus
CPT/HCPCS: 36415; 51702; 51798; 76770; 80053; 81003; 85025; 99284

== ENCOUNTER 2022-08-20 13:01 | Inpatient (IN) | payer MEDICARE ==
[2022-08-20] MEDS ORDERED: SODIUM CHLORIDE 0.9% 1,000 ML IV STA (13:54)
[2022-08-20] MEDS ORDERED: HYDROCORTISONE SUCCINATE 100 MG/2 ML VIAL IV STA (13:55)
[2022-08-20 14:14] LABS: Glucose,Whole Blood 105 mg/dL (70-110)
[2022-08-20 14:16] LABS: Basophils # (A) 0.1 k/uL (0-0.2); Basophils % (A) 1 %; Eosinophils # (A) 0.2 k/uL (0-0.7); Eosinophils % (A) 2 %; HCT 39.2 % (34.0-46.0); Lymphocytes # (A) 2.9 k/uL (1.0-4.8); Lymphocytes % (A) 28 %; MCH 31.3 pg (25.0-35.0); MCHC 35.7 g/dL (31.0-37.0); MCV 87.6 fL (80.0-100.0); Mean Platelet Volume 8.9; Monocytes # (A) 0.7 k/uL (0-1.0); Monocytes % (A) 6 %; Neutrophils # (A) 6.5 k/uL (1.3-7.7); Neutrophils % (A) 62 %; Platelet Count 167 k/uL (150-450); RBC 4.47 m/uL (3.80-5.40); WBC 10.4 k/uL (3.8-10.6)
[2022-08-20 14:19] LABS: ALT 17 U/L (4-34); AST 22 U/L (14-36); African American GFR (CKD) >90 (>60 ml/min/1.73 sqM); Albumin 3.9 g/dL (3.5-5.0); Alkaline Phosphatase 44 U/L (38-126); Anion Gap 7 mmol/L; Blood Urea Nitrogen 17 mg/dL (7-17); Calcium 8.3 mg/dL (8.4-10.2); Carbon Dioxide 27 mmol/L (22-30); Chloride 106 mmol/L (98-107); Glucose 111 mg/dL (74-99); Magnesium 1.9 mg/dL (1.6-2.3); Non-African American GFR(CKD) 82 (>60 ml/min/1.73 sqM); Potassium 3.4 mmol/L (3.5-5.1); Sodium 140 mmol/L (137-145); Total Bilirubin 0.6 mg/dL (0.2-1.3); Total Protein 6.3 g/dL (6.3-8.2)
[2022-08-20 14:24] LABS: Partial Thromboplastin Time 22.8 sec (22.0-30.0); Prothrombin Time 10.3 sec (9.0-12.0)
--- NOTE | 2022-08-20 14:59 | XR ---
EXAMINATION TYPE: XR chest 2V DATE OF EXAM: 08/20/2022 COMPARISON: Chest x-ray July 31, 2021 HISTORY: Difficulty in breathing. TECHNIQUE: Frontal and lateral views of the chest are obtained. FINDINGS: There is chronic parenchymal change bilaterally without suspicious focal air space opacity , pleural stable and mildly enlarged . The osseous structures are demineralized. Overlying EKG lead s are seen. IMPRESSION: Chronic changes and mild cardiomegaly without acute pulmonary process.
--- NOTE | 2022-08-20 15:04 | ED ---
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 Patient states since chest that she's been feeling very dizzy anytime she moves her head she thinks the dizziness gets worse. Patient states she took her hydrocortisone this morning but she was postictal another dose of Ceftin but has not yet taken it because she felt so sick per patient states she did vomit one time. Patient denies any recent fever chills or cough per patient denies any chest pain difficulty breathing shortest breath per patient denies any abdominal pain patient denies any diarrhea. Patient states she still remains feeling dizzy and she feels as though the room was spinning. Patient states she does seem to get better with her eyes shut. - Related Data Home Medications Medication Instructions Recorded Confirmed Fludrocortisone Acetate 0.05 mg PO DAILY 10/29/16 08/20/22 Hydrocortisone [Cortef] 10 mg PO TID 10/29/16 08/20/22 Levothyroxine Sodium [Synthroid] 88 mcg PO DAILY 10/29/16 08/20/22 Ergocalciferol [Vitamin D2 (1250 1,250 mcg PO TUSA 08/20/22 08/20/22 Mcg = 89270 Iu)] hydroCHLOROthiazide [Hydrodiuril] 12.5 mg PO DAILY 08/20/22 08/20/22 Allergies Allergy/AdvReac Type Severity Reaction Status Date / Time latex Allergy Rash/Hives Verified 08/20/22 15:42 Sulfa (Sulfonamide Allergy Rash/Hives Verified 08/20/22 15:42 Antibiotics) Review of Systems ROS Statement: Those systems with pertinent positive or pertinent negative responses have been documented in the HPI. ROS Other: All systems not noted in ROS Statement are negative. 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 Past Psychological History: No Psychological Hx Reported Smoking Status: Never smoker Past Alcohol Use History: None Reported Past Drug Use History: None Reported - Past Family History Sister(s) Family Medical History: Cancer Additional Family Medical History / Comment(s): colon and breast General Exam - General Exam Comments Initial Comments: GENERAL: Patient is well-developed and well-nourished. Patient is nontoxic and well- hydrated and is in mild distress. ENT: Neck is soft and supple. No significant lymphadenopathy is noted. Oropharynx is clear. Moist mucous membranes. Neck has full range of motion without eliciting any pain. EYES: The sclera were anicteric and conjunctiva were pink and moist. Extraocular movements were intact and pupils were equal round and reactive to light. Eyelids were unremarkable. PULMONARY: Unlabored respirations. Good breath sounds bilaterally. No audible rales rhonchi or wheezing was noted. CARDIOVASCULAR: Bradycardia at 40 beats a minute. ABDOMEN: Soft and nontender with normal bowel sounds. SKIN: Skin is clear with no lesions or rashes and otherwise unremarkable. NEUROLOGIC: Patient is alert and oriented x3. Cranial nerves II through XII are grossly intact. Motor and sensory are also intact. Normal speech, volume and content. Symmetrical smile. MUSCULOSKELETAL: Normal extremities with adequate strength and full range of motion. LYMPHATICS: No significant lymphadenopathy is noted PSYCHIATRIC: Normal psychiatric evaluation. Course Vital Signs 08/20/22 08/20/22 08/20/22 13:02 13:11 13:30 Pulse Rate 41 L 43 L Pulse Rate [ 41 L Graduating Machine Operator ] Respiratory 16 16 Rate Blood Pressure 141/65 O2 Sat by Pulse 100 99 Oximetry 08/20/22 08/20/22 08/20/22 14:00 14:30 15:30 Pulse Rate 43 L 42 L 54 L Pulse Rate [ Graduating Machine Operator ] Respiratory 16 16 19 Rate Blood Pressure 135/62 130/66 131/70 O2 Sat by Pulse 98 91 L Oximetry 08/20/22 16:00 Pulse Rate 56 L Pulse Rate [ Graduating Machine Operator ] Respiratory 18 Rate Blood Pressure 125/62 O2 Sat by Pulse 97 Oximetry Medical Decision Making - Medical Decision Making EKG shows sinus bradycardia at 38 bpm AR interval is 193 QRSs 100 QT interval is 518 QTC is 439. Patient's EKG shows no ST segment elevation or depression. Patient's chest x-ray is interpreted by me. Chest x-ray shows no acute abnormality. Patient was given 100 of hydrocortisone because of her Rogers's and she stated that she had not taken her afternoon dose as well as the fact that she felt extremely fatigued. Patient also received a liter of fluid. I went back in and reevaluated the patient patient's heart rate was going anywhere from 40s to 60 bpm she continued to complain about the room spinning CT of the brain was interpreted by me. CT showed no bleed no acute abnormality. I spoke with some physicians agreed to admit the patient admitted the patient wr ote admitting orders. - Lab Data Result diagrams: 08/20/22 14:00 08/20/22 14:00 Lab Results 08/20/22 08/20/22 08/20/22 Range/Units 14:00 14:00 14:00 WBC 10.4 (3.8-10.6) k/uL RBC 4.47 (3.80-5.40) m/uL Hgb 14.0 (11.4-16.0) gm/dL Hct 39.2 (34.0-46.0) % MCV 87.6 (80.0-100.0) fL MCH 31.3 (25.0-35.0) pg MCHC 35.7 (31.0-37.0) g/dL RDW 12.0 (11.5-15.5) % Plt Count 167 (150-450) k/uL MPV 8.9 Neutrophils % 62 % Lymphocytes % 28 % Monocytes % 6 % Eosinophils % 2 % Basophils % 1 % Neutrophils # 6.5 (1.3-7.7) k/uL Lymphocytes # 2.9 (1.0-4.8) k/uL Monocytes # 0.7 (0-1.0) k/uL Eosinophils # 0.2 (0-0.7) k/uL Basophils # 0.1 (0-0.2) k/uL PT 10.3 (9.0-12.0) sec INR 1.0 (<1.2) APTT 22.8 (22.0-30.0) sec Sodium 140 (137-145) mmol/L Potassium 3.4 L (3.5-5.1) mmol/L Chloride 106 (98-107) mmol/L Carbon Dioxide 27 (22-30) mmol/L Anion Gap 7 mmol/L BUN 17 (7-17) mg/dL Creatinine 0.73 (0.52-1.04) mg/dL Est GFR (CKD-EPI)AfAm >90 (>60 ml/min/1.73 sqM) Est GFR (CKD-EPI)NonAf 82 (>60 ml/min/1.73 sqM) Glucose 111 H (74-99) mg/dL POC Glucose (mg/dL) (70-110) mg/dL POC Glu Optometry Doctor ID Plasma Lactic Acid Real (0.7-2.0) mmol/L Calcium 8.3 L (8.4-10.2) mg/dL Magnesium 1.9 (1.6-2.3) mg/dL Total Bilirubin 0.6 (0.2-1.3) mg/dL AST 22 (14-36) U/L ALT 17 (4-34) U/L Alkaline Phosphatase 44 (38-126) U/L Troponin I (0.000-0.034) ng/mL NT-Pro-B Natriuret Pep pg/mL Total Protein 6.3 (6.3-8.2) g/dL Albumin 3.9 (3.5-5.0) g/dL 08/20/22 08/20/22 08/20/22 Range/Units 14:00 14:00 14:11 WBC (3.8-10.6) k/uL RBC (3.80-5.40) m/uL Hgb (11.4-16.0) gm/dL Hct (34.0-46.0) % MCV (80.0-100.0) fL MCH (25.0-35.0) pg MCHC (31.0-37.0) g/dL RDW (11.5-15.5) % Plt Count (150-450) k/uL MPV Neutrophils % % Lymphocytes % % Monocytes % % Eosinophils % % Basophils % % Neutrophils # (1.3-7.7) k/uL Lymphocytes # (1.0-4.8) k/uL Monocytes # (0-1.0) k/uL Eosinophils # (0-0.7) k/uL Basophils # (0-0.2) k/uL PT (9.0-12.0) sec INR (<1.2) APTT (22.0-30.0) sec Sodium (137-145) mmol/L Potassium (3.5-5.1) mmol/L Chloride (98-107) mmol/L Carbon Dioxide (22-30) mmol/L Anion Gap mmol/L BUN (7-17) mg/dL Creatinine (0.52-1.04) mg/dL Est GFR (CKD-EPI)AfAm (>60 ml/min/1.73 sqM) Est GFR (CKD-EPI)NonAf (>60 ml/min/1.73 sqM) Glucose (74-99) mg/dL POC Glucose (mg/dL) (70-110) mg/dL POC Glu Optometry Doctor ID Plasma Lactic Acid Real 1.8 (0.7-2.0) mmol/L Calcium (8.4-10.2) mg/dL Magnesium (1.6-2.3) mg/dL Total Bilirubin (0.2-1.3) mg/dL AST (14-36) U/L ALT (4-34) U/L Alkaline Phosphatase (38-126) U/L Troponin I <0.012 (0.000-0.034) ng/mL NT-Pro-B Natriuret Pep 240 pg/mL Total Protein (6.3-8.2) g/dL Albumin (3.5-5.0) g/dL 08/20/22 Range/Units 14:11 WBC (3.8-10.6) k/uL RBC (3.80-5.40) m/uL Hgb (11.4-16.0) gm/dL Hct (34.0-46.0) % MCV (80.0-100.0) fL MCH (25.0-35.0) pg MCHC (31.0-37.0) g/dL RDW (11.5-15.5) % Plt Count (150-450) k/uL MPV Neutrophils % % Lymphocytes % % Monocytes % % Eosinophils % % Basophils % % Neutrophils # (1.3-7.7) k/uL Lymphocytes # (1.0-4.8) k/uL Monocytes # (0-1.0) k/uL Eosinophils # (0-0.7) k/uL Basophils # (0-0.2) k/uL PT (9.0-12.0) sec INR (<1.2) APTT (22.0-30.0) sec Sodium (137-145) mmol/L Potassium (3.5-5.1) mmol/L Chloride (98-107) mmol/L Carbon Dioxide (22-30) mmol/L Anion Gap mmol/L BUN (7-17) mg/dL Creatinine (0.52-1.04) mg/dL Est GFR (CKD-EPI)AfAm (>60 ml/min/1.73 sqM) Est GFR (CKD-EPI)NonAf (>60 ml/min/1.73 sqM) Glucose (74-99) mg/dL POC Glucose (mg/dL) 105 (70-110) mg/dL POC Glu Optometry Doctor ID Jude Colon Plasma Lactic Acid Real (0.7-2.0) mmol/L Calcium (8.4-10.2) mg/dL Magnesium (1.6-2.3) mg/dL Total Bilirubin (0.2-1.3) mg/dL AST (14-36) U/L ALT (4-34) U/L Alkaline Phosphatase (38-126) U/L Troponin I (0.000-0.034) ng/mL NT-Pro-B Natriuret Pep pg/mL Total Protein (6.3-8.2) g/dL Albumin (3.5-5.0) g/dL Disposition Clinical Impression: Bradycardia, Vertigo Disposition: ADMITTED IP TO THIS HOSP Referrals: Guerrero Reaves MD [Primary Care Provider] - 1-2 days Time of Disposition: 16:58
--- NOTE | 2022-08-20 15:18 | CT ---
EXAMINATION TYPE: CT brain wo con DATE OF EXAM: 08/20/2022 COMPARISON: None HISTORY: lightheaded CT DLP: 1086.4 mGycm Automated exposure control for dose reduction was used. FINDINGS: Mild generalized degenerative change. Hyperostosis of frontal bone. No midline shift or mass effect. No acute hemorrhage. Craniocervical junction is maintained. Sella turcica has a normal appearance. IMPRESSION: NO ACUTE HEMORRHAGE OR MASS EFFECT. IF SYMPTOMS PERSIST CONSIDER MRI.
[2022-08-20] MEDS ORDERED: NITROGLYCERIN SL TABS 0.4 MG TAB SUBLINGUAL PRN (16:59)
[2022-08-20] MEDS ORDERED: NALOXONE 0.4 MG/ML 1 ML VIAL IV PRN (18:48)
[2022-08-20] MEDS ORDERED: ACETAMINOPHEN TAB 325 MG TAB PO PRN (18:48)
[2022-08-20] MEDS ORDERED: MELATONIN 3 MG TABLET PO PRN (18:48)
[2022-08-20] MEDS ORDERED: ONDANSETRON 4 MG/2 ML VIAL IVP PRN (18:48)
[2022-08-20] MEDS ORDERED: POTASSIUM CHLORIDE ER 20 MEQ TAB.ER PO STA (18:53)
--- NOTE | 2022-08-20 18:57 | P.HPIM ---
History of Present Illness H&P Date: 08/20/22 Patient is a 68-year-old female with Alessandro's disease, GERD, and hypothyroidism who presented to the hospital with complaints of dizziness. In the ER she was found to be bradycardic with a heart rate of 41, the remainder of her vital signs were within normal limits. Urinalysis was remarkable for potassium of 3.4, calcium 813, and glucose 111. Head CT showed no acute process. Chest x- ray showed chronic changes with mild cardiomegaly and no acute process. EKG demonstrated sinus bradycardia at a rate of 38. In the ER she received a dose of Solu-Cortef and 1 L of IV fluids. Arrangements were made for observation. Patient seen and examined at bedside. She reports that suddenly yesterday she started noticing dizziness. She states it is there constantly but does get sli ghtly worse with movement. She has had itchy ears for the last several months. She denies headache, presyncope, chest pain, unusual shortness of breath. She denies any weakness or changes in feeling. She does report having some difficulty concentrating with her vision and a hard time reading. Her [id number] at bedside reports she is very sensitive to medications and can only take one Motrin or makes her have altered mentation. She only drinks nonchlorinated water. Pertinent positives and negatives as discussed in HPI, a complete review of systems was performed and all other systems are negative. Vital signs reviewed General: nontoxic, no distress, appears at stated age Derm: warm, dry Head: atraumatic, normocephalic, symmetric Eyes: EOMI, no lid lag, anicteric sclera, pupils equal round reactive to light ENT: Nose and ears atraumatic, no thrush, no pharyngeal erythema Neck: No thyromegaly, no cervical lymphadenopathy, trachea midline, supple Mouth: no lip lesion, mucus membranes moist Cardiovascular: S1S2 reg, no murmur, positive posterior tibial pulse bilateral, no edema, capillary refill less than 2 seconds Lungs: clear to auscultation bilateral, no rhonchi, no rales, no wheeze, no accessory muscle use Abdominal: soft, nontender to palpation, no guarding, no appreciable organomegaly, normal bowel sounds Ext: no gross muscle atrophy, muscle strength 5 out of 5 in all 4 extremities, no contractures Neuro: CN II-XII grossly intact, light touch intact all 4 extremities, finger to nose within normal limits, Psych: Alert, oriented, appropriate affect Assessment/Plan: Intractable dizziness Sinus bradycardia - Doubt that bradycardia significant enough to be affecting dizziness. -Telemetry -Orthostatic vitals -Neurology consultation -If persists consider MRI in a.m. -Has received 1 dose of Solu-Cortef, this could be secondary to adrenal insufficiency. However has no other concomitant symptoms and potassium is well, sodium is normal, and calcium is low Parmer's disease -Resume home steroid dosing Hypothyroidism - Synthroid - check TSH Mild hypokalemia and mild low calcium -Replace and -Recheck in a.m. The patient is admitted with an anticipated less than 2 midnight stay for evaluation of intractable dizziness Surrogate decision-maker: sister DVT prophylaxis: SCDs Discussed with: patient, nursing, family at bedside. Anticipated discharge date: in 1-[address]: home A total of 65 minutes was spent on the care of this complex patient more than 50% of the time was spent in counseling and care coordination. Past Medical History Past Medical History: GERD/Reflux, Thyroid Disorder Additional Past Medical History / Comment(s): Parmer's,daily steroid History of Any Multi-Drug Resistant Organisms: None Reported Past Surgical History: Hysterectomy Additional Past Surgical History / Comment(s): neck surgery-benign tumor Past Anesthesia/Blood Transfusion Reactions: No Reported Reaction Additional Past Anesthesia/Blood Transfusion Reaction / Comment(s): tearful when waking up from anesthesia,Panic Attacks with needles. Past Psychological History: No Psychological Hx Reported Smoking Status: Never smoker Past Alcohol Use History: None Reported Past Drug Use History: None Reported - Past Family History Sister(s) Family Medical History: Cancer Additional Family Medical History / Comment(s): colon and breast Medications and Allergies Home Medications Medication Instructions Recorded Confirmed Type Fludrocortisone Acetate 0.05 mg PO DAILY 10/29/16 08/20/22 History Hydrocortisone [Cortef] 10 mg PO TID 10/29/16 08/20/22 History Levothyroxine Sodium [Synthroid] 88 mcg PO DAILY 10/29/16 08/20/22 History Ergocalciferol [Vitamin D2 (1250 1,250 mcg PO TUSA 08/20/22 08/20/22 History Mcg = 48996 Iu)] hydroCHLOROthiazide [Hydrodiuril] 12.5 mg PO DAILY 08/20/22 08/20/22 History Allergies Allergy/AdvReac Type Severity Reaction Status Date / Time latex Allergy Rash/Hives Verified 08/20/22 15:42 Sulfa (Sulfonamide Allergy Rash/Hives Verified 08/20/22 15:42 Antibiotics) Physical Exam Osteopathic Statement: *. No significant issues noted on an osteopathic structural exam other than those noted in the History and Physical/Consult. Vitals: Vital Signs Pulse Pulse Resp BP Pulse Ox 08/20/22 16:00 56 L 18 125/62 97 08/20/22 15:30 54 L 19 131/70 91 L 08/20/22 14:30 42 L 16 130/66 08/20/22 14:00 43 L 16 135/62 98 08/20/22 13:30 43 L 16 141/65 99 08/20/22 13:11 41 L 16 100 08/20/22 13:02 41 L Intake and Output 08/20/22 08/20/22 08/20/22 06:59 14:59 22:59 Other: Weight 68.039 kg Results CBC & Chem 7: 08/20/22 14:00 08/20/22 14:00 Labs: Abnormal Lab Results - Last 24 Hours (Table) 08/20/22 Range/Units 14:00 Potassium 3.4 L (3.5-5.1) mmol/L Glucose 111 H (74-99) mg/dL Calcium 8.3 L (8.4-10.2) mg/dL
[2022-08-20] MEDS: SODIUM CHLORIDE 0.9% 1,000 ML IV SCH (19:46)
[2022-08-20] MEDS: FLUTICASONE 50MCG/SPRAY NASAL 16GM EA NOSTRIL SCH (20:53)
[2022-08-20] MEDS: HYDROCORTISONE 10 MG TAB PO SCH (23:13)
[2022-08-21] MEDS: LEVOTHYROXINE 88 MCG TAB PO SCH (06:29)
[2022-08-21 07:29] LABS: African American GFR (CKD) >90 (>60 ml/min/1.73 sqM); Anion Gap 8 mmol/L; Blood Urea Nitrogen 12 mg/dL (7-17); Calcium 7.9 mg/dL (8.4-10.2); Carbon Dioxide 25 mmol/L (22-30); Chloride 108 mmol/L (98-107); Glucose 97 mg/dL (74-99); Non-African American GFR(CKD) 86 (>60 ml/min/1.73 sqM); Sodium 141 mmol/L (137-145)
[2022-08-21] MEDS: FLUTICASONE 50MCG/SPRAY NASAL 16GM EA NOSTRIL SCH (10:20)
[2022-08-21] MEDS: hydroCHLOROthiazide 12.5 MG CAP PO SCH (10:20)
[2022-08-21] MEDS: FLUDROCORTISONE 0.1 MG TAB PO SCH (10:21)
[2022-08-21] MEDS: ASPIRIN 325 MG TAB PO SCH (10:21)
[2022-08-21 10:31] LABS: Chol/HDL Ratio 4.93 Ratio; LDL Cholesterol,Calculated 133.4 mg/dL (0.0-131.0)
[2022-08-21] MEDS: HYDROCORTISONE 10 MG TAB PO SCH ×3 (12:14→17:47)
--- NOTE | 2022-08-21 12:18 | P.CRDCN ---
History of Present Illness Consult date: 08/21/22 Requesting physician: Geovanna García Reason for Consult (text): bradycardia Chief complaint: dizziness History of present illness: This is a pleasant 72-year-old female patient with a history of [place]'s, hypothyroidism and GERD. 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 Presented with a 2 day complaint of significant dizziness, worse with turning her head with some associated nausea and vomiting. She describes as spinning sensation. Presented to the emergency department due to persistence of her symptoms. EKG on admission showed a heart rate of 38 bpm with sinus mechanism, or consult to see the patient in this regard. On admission CBC was normal, potassium 3.4, normal renal function, troponins negative 3, BNP 240 and TSH is normal. Computed tomography scan of the brain showed no acute hemorrhage or mass effect, if the symptoms persist consider MRI. Chest x-ray showed chronic changes and mild cardiomegaly without acute pulmonary process. Heart rate is better at 60 bpm at the time of exam. She continues to have mild dizziness. She denies any chest discomfort, palpitations, shortness of breath, orthopnea, PND or edema. She denies any syncope or near sy ncope. Past Medical History Past Medical History: GERD/Reflux, Thyroid Disorder Additional Past Medical History / Comment(s): [place]'s,daily steroid History of Any Multi-Drug Resistant Organisms: None Reported Past Surgical History: Hysterectomy Additional Past Surgical History / Comment(s): neck surgery-benign tumor Past Anesthesia/Blood Transfusion Reactions: No Reported Reaction Additional Past Anesthesia/Blood Transfusion Reaction / Comment(s): tearful when waking up from anesthesia,Panic Attacks with needles. Past Psychological History: No Psychological Hx Reported Smoking Status: Never smoker Past Alcohol Use History: None Reported Past Drug Use History: None Reported - Past Family History Sister(s) Family Medical History: Cancer Additional Family Medical History / Comment(s): colon and breast Mother Family Medical History: Respiratory Disorder Medications and Allergies Home Medications Medication Instructions Recorded Confirmed Type Fludrocortisone Acetate 0.05 mg PO DAILY 10/29/16 08/20/22 History Hydrocortisone [Cortef] 10 mg PO TID 10/29/16 08/20/22 History Levothyroxine Sodium [Synthroid] 88 mcg PO DAILY 10/29/16 08/20/22 History Ergocalciferol [Vitamin D2 (1250 1,250 mcg PO TUSA 08/20/22 08/20/22 History Mcg = 22473 Iu)] hydroCHLOROthiazide [Hydrodiuril] 12.5 mg PO DAILY 08/20/22 08/20/22 History Allergies Allergy/AdvReac Type Severity Reaction Status Date / Time latex Allergy Rash/Hives Verified 08/20/22 15:42 Sulfa (Sulfonamide Allergy Rash/Hives Verified 08/20/22 15:42 Antibiotics) Physical Exam Vitals: Vital Signs Temp Pulse Pulse Resp BP BP Pulse Ox 08/21/22 08:00 97.3 F L 48 L 18 137/63 97 08/21/22 03:51 98 F 55 L 18 138/66 97 08/21/22 02:00 52 L 17 08/20/22 23:20 97.9 F 52 L 17 128/69 96 08/20/22 18:00 55 L 18 122/66 98 08/20/22 17:00 49 L 14 118/62 97 08/20/22 16:00 56 L 18 125/62 97 08/20/22 15:30 54 L 19 131/70 91 L 08/20/22 14:30 42 L 16 130/66 08/20/22 14:00 43 L 16 135/62 98 08/20/22 13:30 43 L 16 141/65 99 08/20/22 13:11 41 L 16 100 08/20/22 13:02 41 L Intake and Output 08/20/22 08/21/22 08/21/22 22:59 06:59 14:59 Intake Total 225 225 780 Output Total 900 500 Balance 225 -675 280 Intake: Intake, IV Titration 225 225 300 Amount Sodium Chloride 0.9% 1, 225 225 300 000 ml @ 75 mls/hr IV . [id number] [facility] Rx#:[id number] Oral 480 Output: Urine 900 500 Other: Voiding Method External Catheter External Catheter # Voids 2 Weight 68.039 kg PHYSICAL EXAMINATION: This is a 72-year-old female in no apparent distress at the time of my examination. HEENT: Head is atraumatic, normocephalic. Pupils are equal, round. Sclerae anicteric. Conjunctivae are clear. Mucous membranes of the mouth are moist. Neck is supple. There is no elevated jugular venous pressure. No carotid bruit is heard. CHEST EXAMINATION: Clear to auscultation bilaterally. No wheezes rales or rhonchi. Respirations even and nonlabored. HEART EXAMINATION: Heart regular, positive S1 and S2. No S3. No S4. Soft systolic murmur. ABDOMEN: Soft, nontender. Bowel sounds are heard. No organomegaly noted. EXTREMITIES: 2+ peripheral pulses with no evidence of peripheral edema and no calf tenderness noted. NEUROLOGIC EXAMINATION: Patient is awake, alert and oriented x3. Results 08/20/22 14:00 08/21/22 06:37 Cardiac Enzymes 08/20/22 08/20/22 08/20/22 Range/Units 14:00 14:00 17:49 AST 22 (14-36) U/L Troponin I <0.012 <0.012 (0.000-0.034) ng/mL 08/20/22 Range/Units 20:55 AST (14-36) U/L Troponin I <0.012 (0.000-0.034) ng/mL Coagulation 08/20/22 Range/Units 14:00 PT 10.3 (9.0-12.0) sec APTT 22.8 (22.0-30.0) sec Lipids 08/21/22 Range/Units 06:37 Triglycerides 142.00 (0.00-149.00) mg/dL Cholesterol 203.00 H (0.00-200.00) mg/dL HDL Cholesterol 41.20 (40.00-60.00) mg/dL Cholesterol/HDL Ratio 4.93 Ratio CBC 08/20/22 Range/Units 14:00 WBC 10.4 (3.8-10.6) k/uL RBC 4.47 (3.80-5.40) m/uL Hgb 14.0 (11.4-16.0) gm/dL Hct 39.2 (34.0-46.0) % Plt Count 167 (150-450) k/uL Comprehensive Metabolic Panel 08/20/22 08/21/22 Range/Units 14:00 06:37 Sodium 140 141 (137-145) mmol/L Potassium 3.4 L 4.0 (3.5-5.1) mmol/L Chloride 106 108 H (98-107) mmol/L Carbon Dioxide 27 25 (22-30) mmol/L BUN 17 12 (7-17) mg/dL Creatinine 0.73 0.68 (0.52-1.04) mg/dL Glucose 111 H 97 (74-99) mg/dL Calcium 8.3 L 7.9 L (8.4-10.2) mg/dL AST 22 (14-36) U/L ALT 17 (4-34) U/L Alkaline Phosphatase 44 (38-126) U/L Total Protein 6.3 (6.3-8.2) g/dL Albumin 3.9 (3.5-5.0) g/dL Current Medications Generic Name Dose Route Start Last Admin Trade Name Freq PRN Reason Stop Dose Admin Acetaminophen 650 mg 08/20/22 18:48 Acetaminophen Tab 325 Mg Tab PO Q6HR PRN Mild Pain or Fever > 100.5 Aspirin 325 mg 08/21/22 09:00 08/21/22 10:21 Aspirin 325 Mg Tab PO 325 mg DAILY VICKI Administration Ergocalciferol 1,250 mcg 08/23/22 09:00 Ergocalciferol 1,250 Mcg (50,000 Iu) Capsule PO TUSA VICKI Fludrocortisone Acetate 0.05 mg 08/21/22 09:00 08/21/22 10:21 Fludrocortisone 0.1 Mg Tab PO 0.05 mg DAILY VICKI Administration Fluticasone Propionate 2 spray 08/20/22 19:00 08/21/22 10:20 Fluticasone 50mcg/Shirley Nasal 16gm EA NOSTRIL 2 spray DAILY VICKI Administration Hydrochlorothiazide 12.5 mg 08/21/22 09:00 08/21/22 10:20 Hydrochlorothiazide 12.5 Mg Cap PO 12.5 mg DAILY VICKI Administration Hydrocortisone 10 mg 08/20/22 22:00 08/20/22 23:13 Hydrocortisone 10 Mg Tab PO 10 mg TID VICKI Administration Sodium Chloride 1,000 mls @ 75 mls/hr 08/20/22 19:00 08/20/22 19:46 Saline 0.9% IV 75 mls/hr .[id number] VICKI Administration Levothyroxine Sodium 88 mcg 08/21/22 06:30 08/21/22 06:29 Levothyroxine 88 Mcg Tab PO 88 mcg DAILY@0630 VICKI Administration Melatonin 3 mg 08/20/22 18:48 Melatonin 3 Mg Tablet PO HS PRN Insomnia Naloxone HCl 0.2 mg 08/20/22 18:48 Naloxone 0.4 Mg/Ml 1 Ml Vial IV Q2M PRN Opioid Reversal Nitroglycerin 0.4 mg 08/20/22 16:59 Nitroglycerin Sl Tabs 0.4 Mg Tab SUBLINGUAL Q5M PRN Chest Pain Ondansetron HCl 4 mg 08/20/22 18:48 Ondansetron 4 Mg/2 Ml Vial IVP Q8HR PRN Nausea And Vomiting Intake and Output 08/20/22 08/21/22 08/21/22 22:59 06:59 14:59 Intake Total 225 225 780 Output Total 900 500 Balance 225 -675 280 Intake: Intake, IV Titration 225 225 300 Amount Sodium Chloride 0.9% 1, 225 225 300 000 ml @ 75 mls/hr IV . [id number] [facility]ICK[facility] Rx#:[id number] Oral 480 Output: Urine 900 500 Other: Voiding Method External Catheter External Catheter # Voids 2 Weight 68.039 kg 08/20/22 14:00 08/21/22 06:37 EKG Interpretations (text) Marked sinus bradycardia Assessment and Plan Assessment: #1 symptoms of dizziness seems to be consistent with vertigo #2 sinus bradycardia, resolved, could be secondary to nausea and vomiting #3 Alessandro's disease #4 hypothyroidism, TSH within normal limits Plan: From cardiology's perspective we'll obtain a 2-D echo with Doppler study. We will continue to monitor the patient's heart rates. If the echocardiogram has no significant abnormalities the patient's heart rate remained stable we'll likely discharge in follow-up as an outpatient. We'll continue to follow patient for further recommendations accordingly. TIRE REPAIRER note has been reviewed, I agree with a documented findings and plan of care. Patient was seen and examined.
--- NOTE | 2022-08-21 14:20 | P.PN ---
Subjective Progress Note Date: 08/21/22 (delayed charting seen at 1115) Patient is a 68-year-old female with [place]'s disease, GERD, and hypothyroidism who presented to the hospital with complaints of dizziness. In the ER she was found to be bradycardic with a heart rate of 41, the remainder of her vital signs were within normal limits. Urinalysis was remarkable for potassium of 3.4, calcium 813, and glucose 111. Head CT showed no acute process. Chest x- ray showed chronic changes with mild cardiomegaly and no acute process. EKG demonstrated sinus bradycardia at a rate of 38. In the ER she received a dose of Solu-Cortef and 1 L of IV fluids. Arrangements were made for observation. She continued to have dizziness. Heart rate was in the 40s to 50s on telemetry. The next morning she had some improvement in her dizziness until standing when it recurred. Patient seen and examined at bedside. She reports that she is having recurrent dizziness after moving. It is there even when at rest that is exacerbated by movement. She was feeling better until she went to get up to walk to the bathroom. General: Ill-appearing, no distress, appears at stated age Derm: warm, dry Head: atraumatic, normocephalic, symmetric Eyes: EOMI, no lid lag, anicteric sclera Mouth: no lip lesion, mucus membranes moist Cardiovascular: S1S2 reg, no murmur, positive posterior tibial pulse bilateral, Lungs: CTA bilateral, no rhonchi, no rales , no accessory muscle use Abdominal: soft, nontender to palpation, no guarding, no appreciable organomegaly Ext: no gross muscle atrophy, no edema, no contractures Neuro: CN II-XI grossly intact, no focal neuro deficits Psych: Alert, oriented, appropriate affect Assessment/Plan: Intractable dizziness Sinus bradycardia - Doubt that bradycardia significant enough to be affecting dizziness. -Telemetry -Orthostatic vitals--- refused lastnight asked nurse to obtain today -await neuro recs - +/- MRI -Has received 1 dose of Solu-Cortef, this could be secondary to adrenal insufficiency. However has no other concomitant symptoms and potassium is well, sodium is normal, and calcium is low. Dose of solu-cortef did not improve symptoms. Alessandro's disease - conitnue home medications Hypothyroidism - Synthroid - TSH normal Mild hypokalemia, resolved mild low calcium- continue home supplementation DVT prophylaxis: SCDs Discussed with: patient, nursing, Anticipated discharge date: in AM Anticipated discharge place: home A total of 35 minutes was spent on the care of this complex patient more than 50% of the time was spent in counseling and care coordination. Objective - Vital Signs Vital signs: Vital Signs Temp 97.3 F L 08/21/22 08:00 Pulse 48 L 08/21/22 08:00 Resp 18 08/21/22 08:00 BP 137/63 08/21/22 08:00 Pulse Ox 97 08/21/22 08:00 FiO2 Intake & Output 08/20/22 08/21/22 08/21/22 18:59 06:59 18:59 Intake Total 450 780 Output Total 900 500 Balance -450 280 Weight 68.039 kg 68.039 kg Intake: Intake, IV Titration 450 300 Amount Sodium Chloride 0.9% 1, 450 300 000 ml @ 75 mls/hr IV . [id number] [facility] Rx#:[id number] Oral 480 Output: Urine 900 500 Other: Voiding Method External Catheter External Catheter # Voids 2 - Labs CBC & Chem 7: 08/20/22 14:00 08/21/22 06:37 Labs: Abnormal Lab Results - Last 24 Hours (Table) 08/20/22 08/21/22 Range/Units 14:00 06:37 Potassium 3.4 L (3.5-5.1) mmol/L Chloride 108 H (98-107) mmol/L Glucose 111 H (74-99) mg/dL Calcium 8.3 L 7.9 L (8.4-10.2) mg/dL Cholesterol 203.00 H (0.00-200.00) mg/dL LDL Cholesterol, Calc 133.4 H (0.0-131.0) mg/dL
[2022-08-21] MEDS ORDERED: MECLIZINE 12.5 MG TAB PO PRN (16:00)
--- NOTE | 2022-08-21 16:11 | P.CNNES ---
History of Present Illness Consult date: 08/21/22 Requesting physician: Brittney Pichardo Reason for Consult: Dizziness History of Present Illness: Patient is a 72-year-old female came to the hospital by ambulance yesterday at 1:01 PM As per EMS flow sheet, when they arrived, found patient complaining of dizziness with nausea and vomiting 1. Patient's ears were itchy and she has a history of inner ear infections and she believes that is what is causing the dizziness. Patient was moved to the stretcher. Patient has [place]'s and states that it causes her to become severely dehydrated easily. EKG showed bradycardia with heart rate between 44-52 bpm. No shortness of breath or difficulty breathing. Blood pressure at the scene was 142/69 pulse at 45 respirations 16, saturation 99%, temperature 97.8. CT head revealed no acute hemorrhage or mass effect. I personally reviewed CT head, agree with the findings. Visualized paranasal sinuses and external aud itory canal is clear. Chest x-ray showed chronic changes and mild cardiomegaly without acute pulmonary process. EKG shows sinus bradycardia. Home medications include levothyroxine, Cortef 10 mg 3 times a day, Florinef 0.05 mg daily, HCTZ 12.5 mg daily and vitamin D. Past Medical History Past Medical History: GERD/Reflux, Thyroid Disorder Additional Past Medical History / Comment(s): Alessandro's,daily steroid History of Any Multi-Drug Resistant Organisms: None Reported Past Surgical History: Hysterectomy Additional Past Surgical History / Comment(s): neck surgery-benign tumor Past Anesthesia/Blood Transfusion Reactions: No Reported Reaction Additional Past Anesthesia/Blood Transfusion Reaction / Comment(s): tearful when waking up from anesthesia,Panic Attacks with needles. Past Psychological History: No Psychological Hx Reported Smoking Status: Never smoker Past Alcohol Use History: None Reported Past Drug Use History: None Reported - Past Family History Sister(s) Family Medical History: Cancer Additional Family Medical History / Comment(s): colon and breast Mother Family Medical History: Respiratory Disorder Medications and Allergies Home Medications Medication Instructions Recorded Confirmed Type Fludrocortisone Acetate 0.05 mg PO DAILY 10/29/16 08/20/22 History Hydrocortisone [Cortef] 10 mg PO TID 10/29/16 08/20/22 History Levothyroxine Sodium [Synthroid] 88 mcg PO DAILY 10/29/16 08/20/22 History Ergocalciferol [Vitamin D2 (1250 1,250 mcg PO TUSA 08/20/22 08/20/22 History Mcg = 48472 Iu)] hydroCHLOROthiazide [Hydrodiuril] 12.5 mg PO DAILY 08/20/22 08/20/22 History Allergies Allergy/AdvReac Type Severity Reaction Status Date / Time latex Allergy Rash/Hives Verified 08/20/22 15:42 Sulfa (Sulfonamide Allergy Rash/Hives Verified 08/20/22 15:42 Antibiotics) Physical Examination - Vital Signs Vital Signs: Vital Signs Temp Pulse Pulse Resp BP BP Pulse Ox 08/21/22 08:00 97.3 F L 48 L 18 137/63 97 08/21/22 03:51 98 F 55 L 18 138/66 97 08/21/22 02:00 52 L 17 08/20/22 23:20 97.9 F 52 L 17 128/69 96 08/20/22 18:00 55 L 18 122/66 98 08/20/22 17:00 49 L 14 118/62 97 08/20/22 16:00 56 L 18 125/62 97 08/20/22 15:30 54 L 19 131/70 91 L 08/20/22 14:30 42 L 16 130/66 08/20/22 14:00 43 L 16 135/62 98 08/20/22 13:30 43 L 16 141/65 99 08/20/22 13:11 41 L 16 100 08/20/22 13:02 41 L Intake and Output 08/20/22 08/21/22 08/21/22 22:59 06:59 14:59 Intake Total 225 225 780 Output Total 900 500 Balance 225 -675 280 Intake: Intake, IV Titration 225 225 300 Amount Sodium Chloride 0.9% 1, 225 225 300 000 ml @ 75 mls/hr IV . [id number] [facility] Rx#:[id number] Oral 480 Output: Urine 900 500 Other: Voiding Method External Catheter External Catheter # Voids 2 Weight 68.039 kg Results - Laboratory Findings CBC and BMP: 08/20/22 14:00 08/21/22 06:37 Abnormal Lab Findings: Abnormal Labs 08/20/22 08/21/22 14:00 06:37 Potassium 3.4 L Chloride 108 H Glucose 111 H Calcium 8.3 L 7.9 L Cholesterol 203.00 H LDL Cholesterol, Calc 133.4 H Assessment and Plan Assessment: * Vertigo, with nausea vomiting, probably due to peripheral vestibular dysfunction. Examination is completely nonfocal. * Recent accidental fall 2 weeks ago. * Hypertension * Alessandro's disease * Hyperlipidemia Plan: * Patient undergoing 2-D echo. * Check carotid Doppler * B12, folate * Meclizine as needed. * Lipid panel with cholesterol 203, LDL 133 HDL 41, triglycerides 142. Consider low intensity statins. * Consider aspirin 81 mg daily if no medical contraindications. * Neurology will follow. Thank you for the consult.
--- NOTE | 2022-08-21 16:48 | US ---
EXAMINATION TYPE: US carotid duplex BILAT DATE OF EXAM: 08/21/2022 COMPARISON: NONE CLINICAL HISTORY: vertigo. vertigo, no stroke TECHNIQUE: Carotid duplex ultrasound examination. Indirect Doppler criteria was utilized. FINDINGS: EXAM MEASUREMENTS: RIGHT: Peak Systolic Velocity (PSV) cm/sec ----- Right CCA: 85.1 ----- Right ICA: 102 ----- Right ECA: 130 ICA/CCA ratio: 1.2 RIGHT: End Diastole cm/sec ----- Right CCA: 13.6 ----- Right ICA: 24.1 ----- Right ECA: 0.0 LEFT: Peak Systolic Velocity (PSV) cm/sec ----- Left CCA: 84.9 ----- Left ICA: 95.8 ----- Left ECA: 109.0 ICA/CCA ratio: 1.1 LEFT: End Diastole cm/sec ----- Left CCA: 17.2 ----- Left ICA: 24.1 ----- Left ECA: 9.8 VERTEBRALS (direction of flow): Right Vertebral: Antegrade Left Vertebral: Antegrade Rhythm: Normal ANIMAL CARE PROVIDER NOTES: Mild homogeneous plaque with no significant stenosis IMPRESSION: Less than 50% stenosis of the bilateral carotid bifurcations. Criteria for Assigning % of Stenosis / Diameter reduction (Estimation based on the indirect measurements of the internal carotid artery velocities (ICA PSV). 1. Normal (no stenosis)=ICA PSV < 125 cm/s: ratio < 2.0: ICA EDV<40 cm/s. 2. Less than 50% stenosis=ICA PSV < 125 cm/s: ratio < 2.0: ICA EDV<40 cm/s. 3. 50 to 69% stenosis=ICA PSV of 125 to 230 cm/s: ration 2.0 ? 4.0: ICA EDV 40-100 cm/s. 4. Greater than 70% stenosis to near occlusion= ICA PSV > 230 cm/s: ratio > 4.0: ICA EDV > 100 cm/s. 5. Near occlusion= ICA PSV velocities may be low or undetectable: variable ratio and ICA EDV. 6. Total occlusion=unable to detect flow.
[2022-08-21] MEDS: SODIUM CHLORIDE 0.9% 1,000 ML IV SCH (18:15)
[2022-08-22] MEDS: SODIUM CHLORIDE 0.9% 1,000 ML IV SCH ×2 (04:43→11:43)
[2022-08-22] MEDS: LEVOTHYROXINE 88 MCG TAB PO SCH (06:36)
[2022-08-22 09:05] VITALS: RESP 17
[2022-08-22] MEDS: FLUDROCORTISONE 0.1 MG TAB PO SCH (09:13)
[2022-08-22] MEDS: hydroCHLOROthiazide 12.5 MG CAP PO SCH (09:13)
[2022-08-22] MEDS: ASPIRIN 325 MG TAB PO SCH ×2 (09:13→09:17)
[2022-08-22] MEDS: HYDROCORTISONE 10 MG TAB PO SCH ×3 (09:13→18:11)
[2022-08-22] MEDS: FLUTICASONE 50MCG/SPRAY NASAL 16GM EA NOSTRIL SCH (09:14)
[2022-08-22] MEDS ORDERED: CALCIUM CARBONATE 500 MG CHEWABLE PO SCH (10:15)
--- NOTE | 2022-08-22 14:41 | P.PN ---
Subjective Progress Note Date: 08/22/22 This is a pleasant 72-year-old female patient with a history of Alessandro's, hypothyroidism and GERD. 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 Presented with a 2 day complaint of significant dizziness, worse with turning her head with some associated nausea and vomiting. She describes as spinning sensation. Presented to the emergency department due to persistence of her symptoms. EKG on admission showed a heart rate of 38 bpm with sinus mechanism, or consult to see the patient in this regard. On admission CBC was normal, potassium 3.4, normal renal function, troponins negative 3, BNP 240 and TSH is normal. Computed tomography scan of the brain showed no acute hemorrhage or mass effect, if the symptoms persist consider MRI. Chest x-ray showed chronic changes and mild cardiomegaly without acute pulmonary process. Heart rate is better at 60 bpm at the time of exam. She continues to have mild dizziness. She denies any chest discomfort, palpitations, shortness of breath, orthopnea, PND or edema. She denies any syncope or near syncope. 08/22/2022 Upon examination patient is resting completely embedded. Continues to have some mild dizziness but significantly better. Echocardiogram was completed and results are pending. Vital signs have been stable. His been no evidence of significant bradycardia. She has been started on meclizine. Objective - Vital Signs Vital signs: Vital Signs Temp 98.3 F 08/22/22 11:46 Pulse 57 L 08/22/22 11:46 Resp 17 08/22/22 11:46 BP 137/79 08/22/22 11:46 Pulse Ox 98 08/22/22 11:46 FiO2 Intake & Output 08/21/22 08/22/22 08/22/22 18:59 06:59 18:59 Intake Total 780 118 Output Total 1200 1150 600 Balance -420 1150 -482 Intake: Intake, IV Titration 300 Amount Sodium Chloride 0.9% 1, 300 000 ml @ 75 mls/hr IV . [id number] [facility] Rx#:[id number] Oral 480 118 Output: Urine 1200 1150 600 Other: Voiding Method External Catheter External Catheter External Catheter # Voids 2 2 1 - Exam HEENT: Head is atraumatic, normocephalic. Pupils are equal, round. Sclerae anicteric. Conjunctivae are clear. Mucous membranes of the mouth are moist. Neck is supple. There is no elevated jugular venous pressure. No carotid bruit is heard. CHEST EXAMINATION: Clear to auscultation bilaterally. No wheezes rales or rhonchi. Respirations even and nonlabored. HEART EXAMINATION: Heart regular, positive S1 and S2. No S3. No S4. Soft systolic murmur. ABDOMEN: Soft, nontender. Bowel sounds are heard. No organomegaly noted. EXTREMITIES: 2+ peripheral pulses with no evidence of peripheral edema and no calf tenderness noted. NEUROLOGIC EXAMINATION: Patient is awake, alert and oriented x3. - Labs CBC & Chem 7: 08/20/22 14:00 08/21/22 06:37 Assessment and Plan Assessment: #1 symptoms of dizziness seems to be consistent with vertigo #2 sinus bradycardia, resolved, could be secondary to nausea and vomiting #3 [place]'s disease #4 hypothyroidism, TSH within normal limits Plan: From cardiology's perspective there are no significant abnormalities noted on the echocardiogram patient may be discharged home she'll follow-up as an outpatient. HAND PACKAGER note has been reviewed, I agree with a documented findings and plan of care. Patient was seen and examined.
[2022-08-22] MEDS ORDERED: CYANOCOBALAMIN 1,000 MCG/ML 1 ML VIAL IM ONE (15:35)
--- NOTE | 2022-08-22 17:13 | CA ---
Transthoracic Echo Report Name: Karen Nance Age: 72 Gender: F : 1950 Exam Date: 08/22/2022 12:11 Exam Location: [facility] Ht (in): 64 Wt (lb): 150 Ordering Physician: Brittney Pichardo DO Attending/Referring Phys: [id number], [place] P[employer] Buyer Destiny Louis, BRYAN Procedure CPT: Indications: dizziness Cardiac Hx: Technical Quality: Contrast 1: Total Dose (mL): Contrast 2: Total Dose (mL): MEASUREMENTS (Male / Female) Normal Values 2D ECHO LV Diastolic Diameter PLAX 4.4 cm 4.2 - 5.9 / 3.9 - 5.3 cm LV Systolic Diameter PLAX 3.0 cm IVS Diastolic Thickness 1.3 cm 0.6 - 1.0 / 0.6 - 0.9 cm LVPW Diastolic Thickness 0.8 cm 0.6 - 1.0 / 0.6 - 0.9 cm LV Relative Wall Thickness 0.5 RV Internal Dim ED PLAX 3.1 cm LA Systolic Diameter LX 3.7 cm 3.0 - 4.0 / 2.7 - 3.8 cm M-MODE Aortic Root Diameter MM 2.5 cm LA Systolic Diameter MM 4.3 cm LA Ao Ratio MM 1.7 MV E Point Septal Separation 0.3 cm AV Cusp Separation MM 1.7 cm DOPPLER MV Area PHT 2.4 cm??? Mitral E Point Velocity 73.7 cm/s Mitral A Point Velocity 99.1 cm/s Mitral E to A Ratio 0.7 MV Deceleration Time 322.8 ms MV E' Velocity 5.6 cm/s Mitral E to MV E' Ratio 13.1 TR Peak Velocity 252.5 cm/s TR Peak Gradient 25.5 mmHg Right Ventricular Systolic Press 30.5 mmHg FINDINGS Left Ventricle Left ventricular ejection fraction is estimated at 55 %. Left ventricular cavity size normal. Mildly increased left ventricular wall thickness. Right Ventricle Normal right ventricular size and function. Right ventricular systolic pressure within normal limits. Right Atrium Normal right atrial size. Left Atrium Normal left atrial size. Mitral Valve Structurally normal mitral valve. Mild mitral regurgitation. Aortic Valve Trileaflet aortic valve. Tricuspid Valve Structurally normal tricuspid valve. Mild tricuspid regurgitation. Pulmonic Valve Structurally normal pulmonic valve. Pericardium Normal pericardium. Aorta Normal size aortic root and proximal ascending aorta. CONCLUSIONS Normal LV systolic function Mild mitral and tricuspid regurgitation Previewed by: Dr. Noe Kelley MD (Electronically Signed) Final Date: 22 August 2022 17:12
--- NOTE | 2022-08-22 17:49 | P.DS ---
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 In the ER she was found to be bradycardic with a heart rate of 41, the remainder of her vital signs were within normal limits. Urinalysis was remarkable for potassium of 3.4, calcium 813, and glucose 111. Head CT showed no acute process. Chest x- ray showed chronic changes with mild cardiomegaly and no acute process. EKG demonstrated sinus bradycardia at a rate of 38. In the ER she received a dose of Solu-Cortef and 1 L of IV fluids. Arrangements were made for observation. She continued to have dizziness. Heart rate was in the 40s to 50s on telemetry. The next morning she had some improvement in her dizziness until standing when it recurred. She was seen by cardiology. She underwent an echocardiogram which showed EF 55% and was otherwise within normal . Carotid Doppler less than 50% stenosis bilateral. she was evaluated by neurology who felt this was likely a peripheral cause of dizziness. Her B12 level came back low normal, however she refused IM B12 injections. He tried Antivert with improvement in her dizziness. She felt stable for discharge home. Follow-up: Dr. Gautam next week, continue with Flonase nasal spray, patient does not tolerate Claritin, continue antivert for the next [address] Reaves. If symptoms persist consider vestibular rehab. Patient seen and examined at bedside. Feeling better than yesterday. Aware that her cholesterols still mildly elevated with an LDL greater than 120. Vital signs reviewed and stable. General: nontoxic, no distress, appears at stated age Derm: warm, dry Head: atraumatic, normocephalic, symmetric Eyes: EOMI, no lid lag, anicteric sclera Mouth: no lip lesion, mucus membranes moist Cardiovascular: S1S2 reg, no murmur, positive posterior tibial pulse bilateral, Lungs: CTA bilateral, no rhonchi, no rales , no accessory muscle use Abdominal: soft, nontender to palpation, no guarding, no appreciable organomegaly Ext: no gross muscle atrophy, no edema, no contractures Neuro: CN II-XI grossly intact, no focal neuro deficits Psych: Alert, oriented, appropriate affect A total of 27 minutes of time were spent preparing this complex discharge summary. Patient was discharged on 08/22/22. Plan - Discharge Summary New Discharge Prescriptions: New Meclizine [Antivert] 12.5 mg PO TID PRN #21 tab PRN Reason: Vertigo Fluticasone Nasal [place] [Flonase Nasal [place]] 2 spray EA NOSTRIL DAILY #1 dispenser Continue Levothyroxine Sodium [Synthroid] 88 mcg PO DAILY Hydrocortisone [Cortef] 10 mg PO TID Fludrocortisone Acetate 0.05 mg PO DAILY hydroCHLOROthiazide [Hydrodiuril] 12.5 mg PO DAILY Ergocalciferol [Vitamin D2 (1250 Mcg = 34968 Iu)] 1,250 mcg PO TUSA Calcium Carbonate [Calcium] 600 mg PO DAILY Discharge Medication List Fludrocortisone Acetate 0.05 mg PO DAILY 10/29/16 [History] Hydrocortisone [Cortef] 10 mg PO TID 10/29/16 [History] Levothyroxine Sodium [Synthroid] 88 mcg PO DAILY 10/29/16 [History] Ergocalciferol [Vitamin D2 (1250 Mcg = 33283 Iu)] 1,250 mcg PO TUSA 08/20/22 [History] hydroCHLOROthiazide [Hydrodiuril] 12.5 mg PO DAILY 08/20/22 [History] Calcium Carbonate [Calcium] 600 mg PO DAILY 08/22/22 [History] Fluticasone Nasal [place] [Flonase Nasal [place]] 2 spray EA NOSTRIL DAILY #1 dispenser 08/22/22 [Rx] Meclizine [Antivert] 12.5 mg PO TID PRN #21 tab 08/22/22 [Rx] Follow up Appointment(s)/Referral(s): Guerrero Reaves MD [Primary Care Provider] - 1-2 days Prince Gautam MD [STAFF PHYSICIAN] - 1 Week Perry Boss MD [STAFF PHYSICIAN] - 1 Week Activity/Diet/Wound Care/Special Instructions: Activity: as tolerated Diet: heart healthy Special Instructions: Meclizine as needed for dizziness. If her dizziness has not resolved within 1-2 weeks consider vestibular rehab. Follow-up with Dr. Gautam. Take Flonase for the next 2 weeks. Your vitamin B12 is borderline low normal. I suggest sublingual vitamin B12 tablets. These can be found that any drugstore. Please take 1000 g daily. Thank you for allowing us to participate in your care, we wish you well on your journey to better health Discharge Disposition: HOME SELF-CARE
[2022-08-22 17:50] VITALS: BP 131/84; PULSE 59; TEMP 98.5
[2022-08-23] MEDS ORDERED: ERGOCALCIFEROL 1,250 MCG (50,000 IU) CAPSULE PO SCH (09:00)
--- NOTE | 2022-08-25 17:22 | P.PN ---
Subjective Progress Note Date: 08/22/22 Patient was seen for a follow-up. Patient is laying comfortably in the bed. Offers no new complaints. Patient states that when she turns her head quickly, then she feels dizzy and off balance. Denies any new numbness tingling focal weakness. Patient states that she used to take niacin for long time, but stopped taking it a while ago. She denies any slurred speech facial droop or any focal neurological symptoms. Objective - Vital Signs Vital signs: Vital Signs Temp 98.3 F 08/22/22 11:46 Pulse 57 L 08/22/22 14:00 Resp 17 08/22/22 14:00 BP 137/79 08/22/22 11:46 Pulse Ox 98 08/22/22 11:46 FiO2 Intake & Output 08/21/22 08/22/22 08/22/22 18:59 06:59 18:59 Intake Total 780 118 Output Total 1200 1150 600 Balance -420 1150 -482 Intake: Intake, IV Titration 300 Amount Sodium Chloride 0.9% 1, 300 000 ml @ 75 mls/hr IV . [id number] Rx#:[id number] Oral 480 118 Output: Urine 1200 1150 600 Other: Voiding Method External Catheter External Catheter External Catheter # Voids 2 2 1 - Exam Patient's mental status, speech and language functions are normal. Cranial nerves are normal. Muscle strength is normal in the arms and legs. No ataxia. Tone and bulk of muscles normal. On turning patient's head to the left, and then to the right, did not provoke any nystagmus or vertigo. No nausea vomiting. - Labs CBC & Chem 7: 08/20/22 14:00 08/21/22 06:37 Assessment and Plan Assessment: * Vertigo, with nausea vomiting, probably due to peripheral vestibular dysfunction. Examination is completely nonfocal. * Recent accidental fall 2 weeks ago. * Hypertension * Souris's disease * Hyperlipidemia Plan: * 2-D echo revealed normal left ventricular systolic function with EF 55%. Mild mitral and tricuspid regurgitation. Mildly increased left ventricular wall thickness. Left atrial size is normal.. * Carotid Doppler revealed less than 50% stenosis bilateral ICA. Antegrade flow in both vertebral arteries. * Orthostatics were checked, and negative. Supine blood pressure 134/64 with pulse rate 54. Sitting up was 147/71 and 67. On standing up blood pressure was 137/69 with pulse rate of 71. * B12 224, folate 9.5, TSH 0.99. Patient will be given B12 injection 1000 g IM 1 dose. Patient will take vitamin B12 250-500 mg tablet, sublingually daily. * Meclizine as needed. * Lipid panel with cholesterol 203, LDL 133 HDL 41, triglycerides 142. Consider low intensity statins. Patient prefers going back on niacin. * Patient does have some vascular risk factors. She was reluctant to take aspirin. Patient agreed to take aspirin 81 mg every other day. * Neurologically clear for discharge.
== END 2022-08-22 18:33 | disposition home or self-care (01) | DRG 149 ==
LOC: EC 13:01 → 3SCARD 17:00
PROVIDERS: ADMIT Internal Medicine; ATTEND Internal Medicine
DX: H81.8X9 Other disorders of vestibular function, unspecified ear (principal); E27.1 Primary adrenocortical insufficiency; E03.9 Hypothyroidism, unspecified; E78.5 Hyperlipidemia, unspecified; E86.0 Dehydration; E87.6 Hypokalemia; I10 Essential (primary) hypertension; K21.9 Gastro-esophageal reflux disease without esophagitis; R00.1 Bradycardia, unspecified; Z79.890 Hormone replacement therapy; Z79.899 Other long term (current) drug therapy; Z28.310 Unvaccinated for COVID-19; Z28.21 Immunization not carried out because of patient refusal; E83.51 Hypocalcemia; J32.9 Chronic sinusitis, unspecified; E53.8 Deficiency of other specified B group vitamins; Z88.2 Allergy status to sulfonamides; Z91.040 Latex allergy status
CPT/HCPCS: 36415; 70450; 71046; 80048; 80053; 80061; 82607; 82746; 83605; 83735; 83880; 84443; 84484; 85025; 85610; 85730; 93005; 93306; 93880

== ENCOUNTER 2024-07-11 10:48 | Inpatient (IN) | payer MEDICARE ==
--- NOTE | 2024-07-11 12:24 | XR ---
EXAMINATION TYPE: XR chest 2V DATE OF EXAM: 07/11/2024 COMPARISON: 08/20/2022, 03/09/2020 CLINICAL INDICATION: Female, 74 years old with history of cough/fever; , TECHNIQUE: XR chest 2V views of the chest. FINDINGS: A diffuse interstitial pattern. Elevated left hemidiaphragm with left basilar subsegmental consolidat ion. The biapical pleural thickening. Diffuse osteopenia. Degenerative changes of the spine. AC joint arthropathy. The left midlung there is a nodular density for which CT scan chest recommended. IMPRESSION: 1. Findings are most likely on the basis of pulmonary fibrosis\COPD. 2. Left basilar atelectasis or scarring favored over pneumonia. 3. There is a nodular density in the left perihilar region, recommend short-term follow-up CT chest. [facility], , 07/11/2024 12:22 PM
[2024-07-11] MEDS: SODIUM CHLORIDE 0.9% 500 ML 500 ML IV ONE (12:36)
[2024-07-11] MEDS: ACETAMINOPHEN TAB 500 MG TAB PO STA (12:37)
[2024-07-11] MEDS: methylPREDNISolone SOD SUCCI 125 MG/2 ML VIAL IV STA (12:43)
[2024-07-11 12:49] LABS: Basophils # (A) 0.1 k/uL (0-0.2); Basophils % (A) 0 %; Eosinophils # (A) 0.2 k/uL (0-0.7); Eosinophils % (A) 2 %; HCT 42.9 % (34.0-46.0); HGB 14.7 gm/dL (11.4-16.0); Lymphocytes % (A) 7 %; MCH 30.8 pg (25.0-35.0); MCHC 34.4 g/dL (31.0-37.0); MCV 89.6 fL (80.0-100.0); Mean Platelet Volume 7.9; Monocytes # (A) 1.1 k/uL (0-1.0); Monocytes % (A) 8 %; Neutrophils # (A) 11.2 k/uL (1.3-7.7); Neutrophils % (A) 81 %; Platelet Count 197 k/uL (150-450); RBC 4.79 m/uL (3.80-5.40); RDW 12.5 % (11.5-15.5); WBC 13.8 k/uL (3.8-10.6)
[2024-07-11] MEDS: ALBUTEROL HFA INHALER INHALATION ONE (13:01)
[2024-07-11] MEDS: IPRATROPIUM-ALBUTEROL 3 ML NEB INHALATION STA (13:01)
[2024-07-11] MEDS: ALBUTEROL NEBULIZED 2.5 MG/3 ML INHALATION STA (13:01)
[2024-07-11 13:02] LABS: ALT 16 U/L (4-34); AST 23 U/L (14-36); African American GFR (CKD) >90 (>60 ml/min/1.73 sqM); Albumin 4.4 g/dL (3.5-5.0); Alkaline Phosphatase 65 U/L (38-126); Anion Gap 10 mmol/L; Blood Urea Nitrogen 14 mg/dL (7-17); Calcium 8.8 mg/dL (8.4-10.2); Carbon Dioxide 24 mmol/L (22-30); Chloride 101 mmol/L (98-107); Glucose 135 mg/dL (74-99); Magnesium 1.7 mg/dL (1.6-2.3); Non-African American GFR(CKD) 82 (>60 ml/min/1.73 sqM); Potassium 3.7 mmol/L (3.5-5.1); Sodium 135 mmol/L (137-145); Total Bilirubin 1.1 mg/dL (0.2-1.3); Total Protein 7.2 g/dL (6.3-8.2)
--- NOTE | 2024-07-11 13:18 | ED ---
General Adult HPI - General Chief complaint: Upper Respiratory Infection Stated complaint: Covid + Time Seen by Provider: 07/11/24 11:08 Source: patient, RN notes reviewed, old records reviewed Mode of arrival: EMS - History of Present Illness Initial comments: 74-year-old female presenting with 2 days of cough, congestion. Patient denies central chest pain. Reports mild dyspnea. No known sick contacts. No lower extremity pain or swelling. No history of cardiac disease. Cough is dry, nonproductive. - Related Data Home Medications Medication Instructions Recorded Confirmed Fludrocortisone Acetate 0.1 mg PO DAILY 10/29/16 07/11/24 Hydrocortisone [Cortef] 10 mg PO TID 10/29/16 07/11/24 Levothyroxine Sodium [Synthroid] 88 mcg PO DAILY 10/29/16 07/11/24 Ergocalciferol [Vitamin D2 (1250 1,250 mcg PO TUSA 08/20/22 07/11/24 Mcg = 00566 Iu)] hydroCHLOROthiazide [Hydrodiuril] 12.5 mg PO DAILY 08/20/22 07/11/24 Calcium Carbonate [Calcium] 600 mg PO DAILY 08/22/22 07/11/24 Allergies Allergy/AdvReac Type Severity Reaction Status Date / Time latex Allergy Rash/Hives Verified 07/11/24 13:30 Sulfa (Sulfonamide Allergy Rash/Hives Verified 07/11/24 13:30 Antibiotics) Review of Systems ROS Statement: Those systems with pertinent positive or pertinent negative responses have been documented in the HPI. ROS Other: All systems not noted in ROS Statement are negative. Past Medical History Past Medical History: GERD/Reflux, Thyroid Disorder Additional Past Medical History / Comment(s): Alessandro's,daily steroid History of Any Multi-Drug Resistant Organisms: None Reported Past Surgical History: Hysterectomy Additional Past Surgical History / Comment(s): neck surgery-benign tumor Past Anesthesia/Blood Transfusion Reactions: No Reported Reaction Additional Past Anesthesia/Blood Transfusion Reaction / Comment(s): tearful when waking up from anesthesia,Panic Attacks with needles. Past Psychological History: No Psychological Hx Reported Smoking Status: Never smoker Past Alcohol Use History: None Reported Past Drug Use History: None Reported - Past Family History Sister(s) Family Medical History: Cancer Additional Family Medical History / Comment(s): colon and breast Mother Family Medical History: Respiratory Disorder General Exam General appearance: alert, in no apparent distress Head exam: Present: atraumatic, normocephalic Eye exam: Present: normal appearance, PERRL ENT exam: Present: normal exam Neck exam: Present: normal inspection. Absent: tenderness, meningismus Respiratory exam: Present: wheezes, rhonchi, decreased breath sounds. Absent: respiratory distress Cardiovascular Exam: Present: regular rate, normal rhythm GI/Abdominal exam: Present: soft. Absent: distended, tenderness, guarding Extremities exam: Present: normal inspection, normal capillary refill. Absent: pedal edema Neurological exam: Present: alert, oriented X3, CN II-XII intact Skin exam: Present: warm, dry, intact. Absent: cyanosis, diaphoretic Course Vital Signs 07/11/24 07/11/24 10:52 11:02 Temperature 100.2 F H Pulse Rate 91 92 Respiratory 18 18 Rate Blood Pressure 151/76 151/76 O2 Sat by Pulse 94 L 95 Oximetry Medical Decision Making - Medical Decision Making Was pt. sent in by a medical professional or institution (GABRIELLE Ibarra, THERMODYNAMIC PHYSICIST, urgent care, hospital, or alf...) When possible be specific @ -No Did you speak to anyone other than the patient for history (EMS, parent, family, police, friend...)? What history was obtained from this source @ -No Did you review nursing and triage notes (agree or disagree)? Why? @ -I reviewed and agree with nursing and triage notes Were old charts reviewed (outside hosp., previous admission, EMS record, old EKG, old radiological studies, urgent care reports/EKG's, alf records)? Report findings @ -No old charts were reviewed Differential Dyspnea: Coronary syndrome, arrhythmia, tamponade, asthma, COPD, pulmonary embolism, pne umonia, pneumothorax, pulmonary effusion, anaphylaxis, diabetic ketoacidosis, flailed chest, pulmonary contusion, diaphragmatic rupture, anemia, neuromuscular, this is not meant to be an all-inclusive list. EKG interpreted by me (3pts min.). @ -Sinus rhythm rate of [address] segment elevation, KS interval 142, QRS duration 89, QTc 410 X-rays interpreted by me (1pt min.). @Chest x-ray showing COPD, nodule in the left midlung field, no consolidated pneumonia. CT interpreted by me (1pt min.). @ -None done U/S interpreted by me (1pt. min.). @ -None done What testing was considered but not performed or refused? (CT, X-rays, U/S, labs)? Why? @ -None What meds were considered but not given or refused? Why? @ -None Did you discuss the management of the patient with other professionals (pro fessionals i.e. , PA, THERMODYNAMIC PHYSICIST, lab, RT, psych nurse, social group worker, probate lawyer, teacher, training and development officer, hospice case manager)? Give summary @[employer] physician group Was smoking cessation discussed for >3mins.? @ -No Was critical care preformed (if so, how long)? @ yes 35 min Were there social determinants of health that impacted care today? How? (Homelessness, low income, unemployed, alcoholism, drug addiction, transportation, low edu. Level, literacy, decrease access to med. care, longterm, rehab)? @ -No Was there de-escalation of care discussed even if they declined (Discuss DNR or withdrawal of care, Hospice)? DNR status @ -No What co-morbidities impacted this encounter? (DM, HTN, Smoking, COPD, CAD, Ca ncer, CVA, ARF, Chemo, Hep., AIDS, mental health diagnosis, sleep apnea, morbid obesity)? @ -[COPD Was patient admitted / discharged? Hospital course, mention meds given and route, prescriptions, significant lab abnormalities, going to OR and other pertinent info. @ -74 yo male presenting for evaluation of cough and dyspnea. Patient does have family members currently with coronavirus. Patient test positive for coronavirus in the emergency department. Patient has x-ray showing COPD with pulmonary nodule. She does require 2 L of oxygen. Laboratory testing is otherwise unremarkable. Patient will be admitted for coronavirus with hypoxia. Undiagnosed new problem with uncertain prognosis? @ -No Drug Therapy requiring intensive monitoring for toxicity (Heparin, Nitro, Insulin, Cardizem)? @ -No Were any procedures done? @ -No Diagnosis/symptom? @COPD, hypoxia, COVID Acute, or Chronic, or Acute on Chronic? @ -Acute Uncomplicated (without systemic symptoms) or Complicated (systemic symptoms)? @ -Default Side effects of treatment? @ -No Exacerbation, Progression, or Severe Exacerbation? @ -No Poses a threat to life or bodily function? How? (Chest pain, USA, GA, pneumonia, PE, COPD, DKA, ARF, appy, cholecystitis, CVA, Diverticulitis, Homicidal, Suicidal, threat to staff... and all critical care pts) @Yes, respiratory failure, hypoxia - Lab Data Result diagrams: 07/11/24 12:30 07/11/24 12:30 Lab Results 07/11/24 07/11/24 07/11/24 Range/Units 11:35 12:30 12:30 WBC 13.8 H (3.8-10.6) k/uL RBC 4.79 (3.80-5.40) m/uL Hgb 14.7 (11.4-16.0) gm/dL Hct 42.9 (34.0-46.0) % MCV 89.6 (80.0-100.0) fL MCH 30.8 (25.0-35.0) pg MCHC 34.4 (31.0-37.0) g/dL RDW 12.5 (11.5-15.5) % Plt Count 197 (150-450) k/uL MPV 7.9 Neutrophils % 81 % Lymphocytes % 7 % Monocytes % 8 % Eosinophils % 2 % Basophils % 0 % Neutrophils # 11.2 H (1.3-7.7) k/uL Lymphocytes # 1.0 (1.0-4.8) k/uL Monocytes # 1.1 H (0-1.0) k/uL Eosinophils # 0.2 (0-0.7) k/uL Basophils # 0.1 (0-0.2) k/uL Sodium 135 L (137-145) mmol/L Potassium 3.7 (3.5-5.1) mmol/L Chloride 101 (98-107) mmol/L Carbon Dioxide 24 (22-30) mmol/L Anion Gap 10 mmol/L BUN 14 (7-17) mg/dL Creatinine 0.72 (0.52-1.04) mg/dL Est GFR (CKD-EPI)AfAm >90 (>60 ml/min/1.73 sqM) Est GFR (CKD-EPI)NonAf 82 (>60 ml/min/1.73 sqM) Glucose 135 H (74-99) mg/dL Plasma Lactic Acid Real (0.7-2.0) mmol/L Calcium 8.8 (8.4-10.2) mg/dL Magnesium 1.7 (1.6-2.3) mg/dL Total Bilirubin 1.1 (0.2-1.3) mg/dL AST 23 (14-36) U/L ALT 16 (4-34) U/L Alkaline Phosphatase 65 (38-126) U/L Total Protein 7.2 (6.3-8.2) g/dL Albumin 4.4 (3.5-5.0) g/dL Influenza Type A (PCR) Not Detected (Not Detectd) Influenza Type B (PCR) Not Detected (Not Detectd) RSV (PCR) Not Detected (Not Detectd) SARS-CoV-2 (PCR) Detected A (Not Detectd) 07/11/24 Range/Units 12:30 WBC (3.8-10.6) k/uL RBC (3.80-5.40) m/uL Hgb (11.4-16.0) gm/dL Hct (34.0-46.0) % MCV (80.0-100.0) fL MCH (25.0-35.0) pg MCHC (31.0-37.0) g/dL RDW (11.5-15.5) % Plt Count (150-450) k/uL MPV Neutrophils % % Lymphocytes % % Monocytes % % Eosinophils % % Basophils % % Neutrophils # (1.3-7.7) k/uL Lymphocytes # (1.0-4.8) k/uL Monocytes # (0-1.0) k/uL Eosinophils # (0-0.7) k/uL Basophils # (0-0.2) k/uL Sodium (137-145) mmol/L Potassium (3.5-5.1) mmol/L Chloride (98-107) mmol/L Carbon Dioxide (22-30) mmol/L Anion Gap mmol/L BUN (7-17) mg/dL Creatinine (0.52-1.04) mg/dL Est GFR (CKD-EPI)AfAm (>60 ml/min/1.73 sqM) Est GFR (CKD-EPI)NonAf (>60 ml/min/1.73 sqM) Glucose (74-99) mg/dL Plasma Lactic Acid Real 2.2 H* (0.7-2.0) mmol/L Calcium (8.4-10.2) mg/dL Magnesium (1.6-2.3) mg/dL Total Bilirubin (0.2-1.3) mg/dL AST (14-36) U/L ALT (4-34) U/L Alkaline Phosphatase (38-126) U/L Total Protein (6.3-8.2) g/dL Albumin (3.5-5.0) g/dL Influenza Type A (PCR) (Not Detectd) Influenza Type B (PCR) (Not Detectd) RSV (PCR) (Not Detectd) SARS-CoV-2 (PCR) (Not Detectd) Critical Care Time Critical Care Time: Yes Total Critical Care Time: 35 Disposition Clinical Impression: Dehydration, Addisons disease, COVID-19, Hypoxia Disposition: ADMITTED IP TO THIS [facility] Condition: Stable Is patient prescribed a controlled substance at d/c from ED?: No Referrals: Guerrero Reaves MD [Primary Care Provider] - 1-2 days Time of Disposition: 13:48
[2024-07-11] MEDS ORDERED: IPRATROPIUM-ALBUTEROL 3 ML NEB INHALATION PRN (13:43)
[2024-07-11] MEDS ORDERED: NALOXONE 0.4 MG/ML 1 ML VIAL IVP PRN (13:43)
[2024-07-11] MEDS: SODIUM CHLORIDE 0.9% 1,000 ML IV SCH (15:11)
[2024-07-11] MEDS ORDERED: ACETAMINOPHEN TAB 325 MG TAB PO PRN (15:45)
[2024-07-11] MEDS: ALBUTEROL HFA INHALER INHALATION SCH (15:47)
[2024-07-11] MEDS: HYDROCORTISONE 10 MG TAB PO SCH (15:52)
[2024-07-11] MEDS ORDERED: IPRATROPIUM-ALBUTEROL 3 ML NEB INHALATION SCH (16:00)
[2024-07-11] MEDS: AZITHROMYCIN 500 MG TAB PO SCH (16:21)
[2024-07-11] MEDS: ENOXAPARIN 40 MG/0.4 ML SYRINGE SQ SCH (16:25)
[2024-07-11] MEDS ORDERED: methylPREDNISolone SOD SUCCI 125 MG/2 ML VIAL IV SCH (18:00)
[2024-07-11] MEDS ORDERED: DEXTROSE 50% SYRINGE 50 ML IVP PRN ×2 (18:13)
--- NOTE | 2024-07-11 18:18 | P.HPIM ---
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 Patient says that she has been endorsing cough for the past 2 to 3 days which has been mildly productive with clear sputum. Additionally, she has been feeling very weak and lethargic especially since this morning. Patient stated that she could not get up from her bed and had to be assisted by her sister. Her shortness of breath and extreme lethargy prompted her to come to the ER for further evaluation. Patient states that her sister has been tested positive for COVID-19. Patient has experienced similar symptoms in the past when she was tested positive for COVID-19 couple years ago and had to be hospitalized for further treatment. Additionally, patient has a occupational exposure to photochemicals while working in [employer] for several years. Patient is chronic non-smoker but does have a history of secondhand smoking. Patient admits to having seasonal allergies and has a pet at home. Patient denies any swelling of the legs, orthopnea, PND. No previous history of CAD and/or CVA. No recent hospitalization or travel history. Patient is not on any blood thinners. Patient states that she is feeling a lot better after being put on oxygen in the ER. Patient is currently on 2 L oxygen therapy via nasal cannula Laboratory evaluation in the ER shows WBC of 13.8, hemoglobin 14.7, MCV 89.6, sodium 135, potassium 3.7, chloride 101, bicarb 24, BUN 14, creatinine 0.72, glucose of 135, lactic acid 2.2, calcium 8.8, Viral panel shows that patient is COVID-19 positive Vital signs significant for Tmax of 100.2 F, pulse rate 92, respirate 18, blood pressure 1 5176, oxygen saturation 95% on 2 L via nasal cannula Chest x-ray interpreted independently shows diffuse interstitial opacities with a nodular density in the left perihilar region EKG interpreted independently shows sinus rhythm with normal KS interval and QTc. Normal R wave progression Review of systems: Pertinent positives and negatives as discussed in HPI, a complete review of systems was performed and all other systems are negative. Physical examination: Vital signs reviewed General: non toxic, no distress, appears at stated age, normal weight Derm: no unusual rashes/lesions, warm Head: atraumatic, normocephalic, symmetric Eyes: EOMI, no lid lag, anicteric sclera, pupils equal round reactive to light ENT: Nose and ears atraumatic Neck: No cervical lymphadenopathy, trachea midline, supple Mouth: no lip lesion, mucus membranes moist Cardiovascular: S1S2 reg, no murmur, positive dorsalis pedis pulse bilateral, no edema Lungs: Velcro crackles are appreciated bilaterally, no wheezing Abdominal: soft, nontender to palpation, no guarding Ext: muscle strength 5 out of 5 in all 4 extremities grossly, no gross muscle atrophy, no contractures, Neuro: CN II-XI grossly intact, no gross focal neuro deficits Psych: Alert, oriented, appropriate affect Assessment/Plan: Patient is a 74-year-old female who is tested positive for COVID 19 with 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 Patient was admitted to internal medicine service for further evaluation of COVID-19 pneumonitis versus community-acquired pneumonia. #COVID-19 pneumonitis versus community-acquired pneumonia #Acute hypoxemic respiratory failure #Leukocytosis secondary to above Chest x-ray interpreted independently shows diffuse interstitial opacities with a nodular density in the left perihilar region COVID-19 positive on viral panel in ER Mildly productive cough with shortness of breath and lethargy Previous history of COVID-19 infection requiring hospitalization Continue with oxygen therapy at 2 L via nasal cannula Continue monitor vital signs Order remdesivir Order dexamethasone 6 mg IV daily Order albuterol inhaler Order chest CT Order blood culture, sputum culture, urine Legionella antigen Order ESR Order daily D-dimer, ferritin, fibrinogen, LDH, magnesium, coag, CBC, BMP, CRP Order procalcitonin Order NT proBNP Order IV ceftriaxone 2 g daily and Zithromax 500 mg p.o. daily; will discontinue if procalcitonin is negative #Hyperglycemia Accu-Cheks and sliding scale insulin Check HbA1c #Alessandro's disease -Continue patient's fludrocortisone -Dexamethasone will cover her steroid component, however, patient's preference is to also continue her hydrocortisone #Euvolemic hyponatremia Sodium 135 Continue monitor BMP Chronic condition: Alessandro's disease: Resume fludrocortisone 0.1 mg p.o. daily, hydrocortisone 10 mg p.o. 3 times daily Hypothyroidism: Resume 88 mcg p.o. daily #Hypertension: Hydrochlorothiazide 12.5 mg p.o. daily DVT prophylaxis: Lovenox 40 mg subcu daily The patient is admitted with an anticipated more than 2 midnight stay for evaluation of COVID-19 pneumonitis versus CAP CODE STATUS: Full Discussed with: Patient Anticipated discharge place: Pending clinical course, likely home I saw and evaluated the patient during the aly and critical portions of this encounter, and discussed the case in detail with the resident author of this note, I agree with the Assessment and Plan, and my changes, if any, are highligh devon in blue. Past Medical History Past Medical History: GERD/Reflux, Thyroid Disorder Additional Past Medical History / Comment(s): Hardin's,daily steroid History of Any Multi-Drug Resistant Organisms: None Reported Past Surgical History: Hysterectomy Additional Past Surgical History / Comment(s): neck surgery-benign tumor Past Anesthesia/Blood Transfusion Reactions: No Reported Reaction Additional Past Anesthesia/Blood Transfusion Reaction / Comment(s): tearful when waking up from anesthesia,Panic Attacks with needles. Past Psychological History: No Psychological Hx Reported Smoking Status: Never smoker Past Alcohol Use History: None Reported Past Drug Use History: None Reported - Past Family History Sister(s) Family Medical History: Cancer Additional Family Medical History / Comment(s): colon and breast Mother Family Medical History: Respiratory Disorder Medications and Allergies Home Medications Medication Instructions Recorded Confirmed Type Fludrocortisone Acetate 0.1 mg PO DAILY 10/29/16 07/11/24 History Hydrocortisone [Cortef] 10 mg PO TID 10/29/16 07/11/24 History Levothyroxine Sodium [Synthroid] 88 mcg PO DAILY 10/29/16 07/11/24 History Ergocalciferol [Vitamin D2 (1250 1,250 mcg PO TUSA 08/20/22 07/11/24 History Mcg = 29858 Iu)] hydroCHLOROthiazide [Hydrodiuril] 12.5 mg PO DAILY 08/20/22 07/11/24 History Calcium Carbonate [Calcium] 600 mg PO DAILY 08/22/22 07/11/24 History Allergies Allergy/AdvReac Type Severity Reaction Status Date / Time latex Allergy Rash/Hives Verified 07/11/24 13:30 Sulfa (Sulfonamide Allergy Rash/Hives Verified 07/11/24 13:30 Antibiotics) Physical Exam Osteopathic Statement: *. No significant issues noted on an osteopathic structural exam other than those noted in the History and Physical/Consult. Vitals: Vital Signs Temp Pulse Resp BP BP Pulse Ox 07/11/24 17:51 84 16 102/62 95 07/11/24 17:50 16 107/62 95 07/11/24 16:30 82 18 106/56 97 07/11/24 11:02 100.2 F H 92 18 151/76 95 07/11/24 10:52 91 18 151/76 94 L Intake and Output 07/11/24 07/11/24 07/11/24 06:59 14:59 22:59 Other: Weight 81.647 kg Results CBC & Chem 7: 07/11/24 12:30 07/11/24 12:30 Labs: Abnormal Lab Results - Last 24 Hours (Table) 07/11/24 07/11/24 07/11/24 Range/Units 11:35 12:30 12:30 WBC 13.8 H (3.8-10.6) k/uL Neutrophils # 11.2 H (1.3-7.7) k/uL Monocytes # 1.1 H (0-1.0) k/uL Sodium 135 L (137-145) mmol/L Glucose 135 H (74-99) mg/dL Plasma Lactic Acid Real (0.7-2.0) mmol/L SARS-CoV-2 (PCR) Detected A (Not Detectd) 07/11/24 Range/Units 12:30 WBC (3.8-10.6) k/uL Neutrophils # (1.3-7.7) k/uL Monocytes # (0-1.0) k/uL Sodium (137-145) mmol/L Glucose (74-99) mg/dL Plasma Lactic Acid Real 2.2 H* (0.7-2.0) mmol/L SARS-CoV-2 (PCR) (Not Detectd)
--- NOTE | 2024-07-11 19:46 | P.CNPUL ---
History of Present Illness Reason for consult: dyspnea History of present illness: 74-year-old female patient presenting with cough and congestion and some limited shortness of breath over the past 48 hours. She came into the ED and the patient tested positive for COVID-19. Noted this is the patient's second infection with a virus. The first infection was few years back. No prior vaccination. No nausea. No vomiting. No emesis. No diarrhea. Pulse ox is 95% on 2 L of oxygen nasal cannula. Chest x-ray shows chronic senescent changes. A nodule seen in the left lower lobe/infrahilar area. Atelectatic changes in lung bases. She is a non-smoker. White cell count is at 13.8 with hemoglobin 14.7 and platelet count of 197. The lactic acid level venous was 2.2. Electrolytes are all within normal limits. D-dimer has not been checked. Resting comfortably in bed. Hemodynamically stable. Comorbidities include Geneva's disease maintained Cortef 10 mg 3 times daily and Florinef 0.1 milligrams p.o. daily. She also has hypothyroidism and hypertension. Review of Systems Constitutional: Reports as per HPI Eyes: denies as per HPI, denies blurred vision, denies bulging eye, denies decreased vision, denies diplopia, denies discharge, denies dry eye, denies irritation, denies itching, denies pain, denies photophobia, denies loss of pe ripheral vision, denies loss of vision, denies tunnel vision/blind spots Ears: deny: decreased hearing, ear discharge, earache, tinnitus Ears, nose, mouth and throat: Reports as per HPI, Reports nasal congestion Breasts: absent: as per HPI, change in shape, gynecomastia, masses, nipple discharge, pain, skin changes, swelling Cardiovascular: Reports as per HPI Respiratory: Reports congestion, Reports cough Gastrointestinal: Reports as per HPI Genitourinary: Reports as per HPI Menstruation: Reports as per HPI Musculoskeletal: Reports as per HPI Musculoskeletal: absent: ankle pain, ankle stiffness, ankle swelling, as per HPI, elbow pain, elbow stiffness, elbow swelling, foot pain, foot stiffness, foot swelling, hand pain, hand stiffness, hand swelling, hip pain, hip stiffness, hip swelling, knee pain, knee stiffness, knee swelling, shoulder pain, shoulder stiffness, shoulder swelling, wrist pain, wrist stiffness, wrist swelling Integumentary: Reports as per HPI Neurological: Reports as per HPI Psychiatric: Reports as per HPI Endocrine: Reports as per HPI Hematologic/Lymphatic: Reports as per HPI Allergic/Immunologic: Reports as per HPI Past Medical History Past Medical History: GERD/Reflux, Thyroid Disorder Additional Past Medical History / Comment(s): Geneva's,daily steroid History of Any Multi-Drug Resistant Organisms: None Reported Past Surgical History: Hysterectomy Additional Past Surgical History / Comment(s): neck surgery-benign tumor Past Anesthesia/Blood Transfusion Reactions: No Reported Reaction Additional Past Anesthesia/Blood Transfusion Reaction / Comment(s): tearful when waking up from anesthesia,Panic Attacks with needles. Past Psychological History: No Psychological Hx Reported Smoking Status: Never smoker Past Alcohol Use History: None Reported Past Drug Use History: None Reported - Past Family History Sister(s) Family Medical History: Cancer Additional Family Medical History / Comment(s): colon and breast Mother Family Medical History: Respiratory Disorder Medications and Allergies Home Medications Medication Instructions Recorded Confirmed Type Fludrocortisone Acetate 0.1 mg PO DAILY 10/29/16 07/11/24 History Hydrocortisone [Cortef] 10 mg PO TID 10/29/16 07/11/24 History Levothyroxine Sodium [Synthroid] 88 mcg PO DAILY 10/29/16 07/11/24 History Ergocalciferol [Vitamin D2 (1250 1,250 mcg PO TUSA 08/20/22 07/11/24 History Mcg = 75486 Iu)] hydroCHLOROthiazide [Hydrodiuril] 12.5 mg PO DAILY 08/20/22 07/11/24 History Calcium Carbonate [Calcium] 600 mg PO DAILY 08/22/22 07/11/24 History Allergies Allergy/AdvReac Type Severity Reaction Status Date / Time latex Allergy Rash/Hives Verified 07/11/24 13:30 Sulfa (Sulfonamide Allergy Rash/Hives Verified 07/11/24 13:30 Antibiotics) Physical Exam Vitals: Vital Signs Temp Pulse Resp BP BP Pulse Ox 07/11/24 18:24 68 18 119/71 94 L 07/11/24 17:51 84 16 102/62 95 07/11/24 17:50 16 107/62 95 07/11/24 16:30 82 18 106/56 97 07/11/24 11:02 100.2 F H 92 18 151/76 95 07/11/24 10:52 91 18 151/76 94 L Intake and Output 07/11/24 07/11/24 07/11/24 06:59 14:59 22:59 Other: Weight 81.647 kg The patient appeared well nourished and normally developed. Vital signs as documented. Head exam is unremarkable. No scleral icterus or corneal arcus noted. Neck is without jugular venous distension, thyromegaly, or carotid bruits. Carotid upstrokes are brisk bilaterally. Lungs are clear to auscultation and percussion. Cardiac exam reveals the PMI to be normally sized and situated. Rhythm is regular. First and second heart sounds normal. No murmurs, rubs or gallops. Abdominal exam reveals normal bowel sounds, no masses, no organomegaly and no aortic enlargement. Extremities are nonedematous and both femoral and pedal pulses are normal. Examination of the skin revealed no evidence of significant rashes, suspicious appearing nevi or other concerning lesions. Neurologically, the patient is awake and alert and the patient does not have any focal neurological deficit. Cranial nerves are essentially intact. Results - Laboratory Findings CBC and BMP: 07/11/24 12:30 07/11/24 12:30 ABG WBC 13.8 k/uL (3.8-10.6) H 07/11/24 12:30 RBC 4.79 m/uL (3.80-5.40) 07/11/24 12:30 Hgb 14.7 gm/dL (11.4-16.0) 07/11/24 12:30 Hct 42.9 % (34.0-46.0) 07/11/24 12:30 MCV 89.6 fL (80.0-100.0) 07/11/24 12:30 MCH 30.8 pg (25.0-35.0) 07/11/24 12:30 MCHC 34.4 g/dL (31.0-37.0) 07/11/24 12:30 RDW 12.5 % (11.5-15.5) 07/11/24 12:30 Plt Count 197 k/uL (150-450) 07/11/24 12:30 MPV 7.9 07/11/24 12:30 Neutrophils % 81 % 07/11/24 12:30 Lymphocytes % 7 % 07/11/24 12:30 Monocytes % 8 % 07/11/24 12:30 Eosinophils % 2 % 07/11/24 12:30 Basophils % 0 % 07/11/24 12:30 Neutrophils # 11.2 k/uL (1.3-7.7) H 07/11/24 12:30 Lymphocytes # 1.0 k/uL (1.0-4.8) 07/11/24 12:30 Monocytes # 1.1 k/uL (0-1.0) H 07/11/24 12:30 Eosinophils # 0.2 k/uL (0-0.7) 07/11/24 12:30 Basophils # 0.1 k/uL (0-0.2) 07/11/24 12:30 Sodium 135 mmol/L (137-145) L 07/11/24 12:30 Potassium 3.7 mmol/L (3.5-5.1) 07/11/24 12:30 Chloride 101 mmol/L (98-107) 07/11/24 12:30 Carbon Dioxide 24 mmol/L (22-30) 07/11/24 12:30 Anion Gap 10 mmol/L 07/11/24 12:30 BUN 14 mg/dL (7-17) 07/11/24 12:30 Creatinine 0.72 mg/dL (0.52-1.04) 07/11/24 12:30 Est GFR (CKD-EPI)AfAm >90 (>60 ml/min/1.73 sqM) 07/11/24 12:30 Est GFR (CKD-EPI)NonAf 82 (>60 ml/min/1.73 sqM) 07/11/24 12:30 Glucose 135 mg/dL (74-99) H 07/11/24 12:30 Lactic Ac Sepsis Rflx Y 07/11/24 13:04 Plasma Lactic Acid Real 1.5 mmol/L (0.7-2.0) 07/11/24 15:15 Calcium 8.8 mg/dL (8.4-10.2) 07/11/24 12:30 Magnesium 1.7 mg/dL (1.6-2.3) 07/11/24 12:30 Total Bilirubin 1.1 mg/dL (0.2-1.3) 07/11/24 12:30 AST 23 U/L (14-36) 07/11/24 12:30 ALT 16 U/L (4-34) 07/11/24 12:30 Alkaline Phosphatase 65 U/L (38-126) 07/11/24 12:30 Total Protein 7.2 g/dL (6.3-8.2) 07/11/24 12:30 Albumin 4.4 g/dL (3.5-5.0) 07/11/24 12:30 Influenza Type A (PCR) Not Detected (Not Detectd) 07/11/24 11:35 Influenza Type B (PCR) Not Detected (Not Detectd) 07/11/24 11:35 RSV (PCR) Not Detected (Not Detectd) 07/11/24 11:35 SARS-CoV-2 (PCR) Detected (Not Detectd) A 07/11/24 11:35 Abnormal lab findings: Abnormal Labs 07/11/24 07/11/24 07/11/24 11:35 12:30 12:30 WBC 13.8 H Neutrophils # 11.2 H Monocytes # 1.1 H Sodium 135 L Glucose 135 H Plasma Lactic Acid Real SARS-CoV-2 (PCR) Detected A 07/11/24 12:30 WBC Neutrophils # Monocytes # Sodium Glucose Plasma Lactic Acid Real 2.2 H* SARS-CoV-2 (PCR) - Diagnostic Findings Chest x-ray: image reviewed Assessment and Plan Plan: Acute COVID-19 infection, symptoms started approximately 48 hours ago. Second infection since the beginning of the pandemic, no prior vaccination. Chest x- ray findings are essentially chronic, questionable nodule in the left lower lobe Acute hypoxic respiratory failure, currently on 2 L Alessandro's disease Hypothyroidism Hypertension Plan Monitor oxygenation, currently on 2 L oxygen by nasal cannula Continue Decadron 6 mg daily IV and stress dose hydrocortisone 50 mg IV q hr check inflammatory markers including CRP, LDH and procalcitonin Check D-dimer Lovenox for DVT prophylaxis CT chest to characterize the nodule in the LLL No need for antibiotics will follow
[2024-07-11] MEDS: HYDROCORTISONE SUCCINATE 100 MG/2 ML VIAL IV SCH (20:20)
[2024-07-11] MEDS: REMDESIVIR 200 MG in SODIUM CHLORIDE 0.9% 250 ML IVPB ONE (20:21)
[2024-07-11 20:53] LABS: Glucose,Whole Blood 331 mg/dL (70-110)
[2024-07-11] MEDS: INSULIN ASPART (NovoLOG) 100 UNIT/ML VIAL SQ SCH (21:39)
[2024-07-12 02:28] LABS: Basophils % (A) 0 %; Eosinophils % (A) 1 %; HCT 39.7 % (34.0-46.0); HGB 13.3 gm/dL (11.4-16.0); Lymphocytes # (A) 0.9 k/uL (1.0-4.8); Lymphocytes % (A) 10 %; MCH 30.2 pg (25.0-35.0); MCHC 33.6 g/dL (31.0-37.0); MCV 89.8 fL (80.0-100.0); Mean Platelet Volume 7.9; Monocytes # (A) 0.3 k/uL (0-1.0); Monocytes % (A) 4 %; Neutrophils # (A) 7.6 k/uL (1.3-7.7); Neutrophils % (A) 85 %; Platelet Count 184 k/uL (150-450); RBC 4.42 m/uL (3.80-5.40); RDW 12.4 % (11.5-15.5); WBC 8.9 k/uL (3.8-10.6)
[2024-07-12 02:45] LABS: ALT 17 U/L (4-34); AST 22 U/L (14-36); African American GFR (CKD) >90 (>60 ml/min/1.73 sqM); Albumin 3.9 g/dL (3.5-5.0); Albumin/Globulin Ratio 1.5; Alkaline Phosphatase 53 U/L (38-126); Anion Gap 12 mmol/L; Blood Urea Nitrogen 15 mg/dL (7-17); Calcium 8.5 mg/dL (8.4-10.2); Carbon Dioxide 19 mmol/L (22-30); Chloride 107 mmol/L (98-107); Globulin 2.6 g/dL; Glucose 182 mg/dL (74-99); LDH 147 U/L (120-246); Magnesium 1.7 mg/dL (1.6-2.3); Non-African American GFR(CKD) 88 (>60 ml/min/1.73 sqM); Potassium 3.8 mmol/L (3.5-5.1); Sodium 138 mmol/L (137-145); Total Bilirubin 0.5 mg/dL (0.2-1.3); Total Protein 6.5 g/dL (6.3-8.2)
[2024-07-12 02:56] LABS: Partial Thromboplastin Time 27.1 sec (22.0-30.0); Prothrombin Time 10.9 sec (10.0-12.5)
[2024-07-12] MEDS: LEVOTHYROXINE 88 MCG TAB PO SCH (05:49)
[2024-07-12 05:56] LABS: Glucose,Whole Blood 182 mg/dL (70-110)
[2024-07-12] MEDS ORDERED: FLUDROCORTISONE 0.1 MG TAB PO SCH (09:00)
[2024-07-12] MEDS ORDERED: ERGOCALCIFEROL 1,250 MCG (50,000 IU) CAPSULE PO SCH (09:00)
[2024-07-12] MEDS: CALCIUM CARBONATE 500 MG CHEWABLE PO SCH (09:06)
[2024-07-12] MEDS: hydroCHLOROthiazide 12.5 MG CAP PO SCH (09:06)
[2024-07-12] MEDS: DEXAMETHASONE SOD PHOSPHATE 10 MG/ML 1 ML VIAL IV SCH (09:06)
--- NOTE | 2024-07-12 09:21 | CT ---
EXAMINATION TYPE: CT chest wo con DATE OF EXAM: 07/12/2024 7:13 AM COMPARISON: r CLINICAL INDICATION: Female, 74 years old with history of Suspected COVID-19 pneumonia, COVID TECHNIQUE: Axial images were obtained at 5 mm thick sections. Reconstructed images are reviewed on [employer] computer in the coronal plane. Contrast used: mL of , (none if empty) Oral contrast used: (none if empty) CT DLP: 429.2 mGycm, Automated exposure control for dose reduction was used. FINDINGS: Portion of the thyroid visualized is normal. There is a 0.5 cm spiculated density posterior right apex. This is new. Short-term follow-up in 3-6 m [facility] is recommended. Minimal increased lung markings are present which is nonspecific. Findings could be related to atypic al pneumonia. No enlarged mediastinal or hilar adenopathy is evident. Small lymph nodes are present in mediastinum . The ascending aorta diameter at the level of the main pulmonary artery is 3.7 cm. The main pulmona ry artery diameter at the bifurcation is 2.[address] sections are obtained through the upper abdomen. Abdomen is essentially unremarkable. IMPRESSION: 1. Minimal diffuse increased lung markings are nonspecific and can be related to atypical pneumonia. 2. Small spiculated density along the major fissure posterior left upper lung field. Short-term follo w-up in 3-6 months is recommended. [facility], , 07/12/2024 9:18 AM
[2024-07-12 12:06] LABS: Glucose,Whole Blood 150 mg/dL (70-110)
--- NOTE | 2024-07-12 14:37 | P.PN ---
Subjective Progress Note Date: 07/12/24 74-year-old female patient presenting with cough and congestion and some limited shortness of breath over the past 48 hours. She came into the ED and the patient tested positive for COVID-19. Noted this is the patient's second infection with a virus. The first infection was few years back. No prior v accination. No nausea. No vomiting. No emesis. No diarrhea. Pulse ox is 95% on 2 L of oxygen nasal cannula. Chest x-ray shows chronic senescent changes. A nodule seen in the left lower lobe/infrahilar area. Atelectatic changes in lung bases. She is a non-smoker. White cell count is at 13.8 with hemoglobin 14.7 and platelet count of 197. The lactic acid level venous was 2.2. Electrolytes are all within normal limits. D-dimer has not been checked. Resting comfortably in bed. Hemodynamically stable. Comorbidities include Alessandro's disease maintained Cortef 10 mg 3 times daily and Florinef 0.1 milligrams p.o. daily. She also has hypothyroidism and hypertension. 07/12/2024, the patient is feeling great. She is currently on room air oxygen. The patient is currently on room air oxygen. Hemodynamically stable. Tolerating diet. The white cell count of 8.9, hemoglobin 15.3, D-dimer is at 0.21, electrolytes are all stable with a serum bicarb of 19 and a BUN of 15 with a creatinine of 0.6. The patient's CRP was 5.7, LDH was 147, the patient was taken off the antibiotics. She is on remdesivir. She is also on Decadron. Objective - Vital Signs Vital signs: Vital Signs Temp 97.4 F L 07/12/24 07:43 Pulse 61 07/12/24 12:05 Resp 17 07/12/24 12:05 BP 125/75 07/12/24 12:05 Pulse Ox 97 07/12/24 12:05 FiO2 Intake & Output 07/11/24 07/12/24 07/12/24 18:59 06:59 18:59 Intake Total 118 Balance 118 Weight 81.647 kg Intake: Oral 118 Other: Voiding Method Toilet Toilet # Voids 3 - Exam The patient appeared well nourished and normally developed. Vital signs as documented. Head exam is unremarkable. No scleral icterus or corneal arcus noted. Neck is without jugular venous distension, thyromegaly, or carotid bruits. Carotid upstrokes are brisk bilaterally. Lungs are clear to auscultation and percussion. Cardiac exam reveals the PMI to be normally sized and situated. Rhythm is regular. First and second heart sounds normal. No murmurs, rubs or gallops. Abdominal exam reveals normal bowel sounds, no masses, no organomegaly and no aortic enlargement. Extremities are nonedematous and both femoral and pedal pulses are normal. Examination of the skin revealed no evidence of significant rashes, suspicious appearing nevi or other concerning lesions. Neurologically, the patient is awake and alert and the patient does not have any focal neurological deficit. Cranial nerves are essentially intact. - Labs CBC & Chem 7: 07/12/24 02:07 07/12/24 02:07 Labs: Abnormal Lab Results - Last 24 Hours (Table) 07/11/24 07/12/24 07/12/24 Range/Units 20:51 02:07 02:07 Lymphocytes # 0.9 L (1.0-4.8) k/uL Carbon Dioxide (22-30) mmol/L Glucose (74-99) mg/dL POC Glucose (mg/dL) 331 H (70-110) mg/dL Hemoglobin A1c 6.2 H (<=6.0) % Ferritin (10.0-291.0) ng/mL C-Reactive Protein (0.00-0.80) mg/dL 07/12/24 07/12/24 07/12/24 Range/Units 02:07 05:55 12:05 Lymphocytes # (1.0-4.8) k/uL Carbon Dioxide 19 L (22-30) mmol/L Glucose 182 H (74-99) mg/dL POC Glucose (mg/dL) 182 H 150 H (70-110) mg/dL Hemoglobin A1c (<=6.0) % Ferritin 422.0 H (10.0-291.0) ng/mL C-Reactive Protein 5.70 H (0.00-0.80) mg/dL Microbiology - Last 24 Hours (Table) 07/11/24 17:50 Gram Stain - Final Sputum Sputum Culture - Final Assessment and Plan Plan: Acute COVID-19 infection, symptoms started approximately 48 hours ago. Second infection since the beginning of the pandemic, no prior vaccination. Chest x- ray findings are essentially chronic, questionable nodule in the left lower lobe. CAT scan of the chest shows no acute abnormalities. Acute hypoxic respiratory failure, improved and the patient is currently on room air oxygen Alessandro's disease Hypothyroidism Hypertension Plan Monitor oxygenation, currently on room air oxygen Continue Decadron 6 mg daily IV and stress dose hydrocortisone 50 mg IV q hr Check D-dimer was low CAT scan of the chest was reviewed, no concerns for nodules Lovenox for DVT prophylaxis May stop remdesivir and the patient can be discharged home on Decadron over the next 24 hours. No need for antibiotics will follow
--- NOTE | 2024-07-12 14:44 | P.PN ---
Subjective Progress Note Date: 07/12/24 Subjective: Patient seen and examined at the bedside. No acute events overnight. Patient currently on room air. All Systems reviewed and pertinent positives and negatives noted in HPI, all other symptoms are negative Objective: Vital signs reviewed. General: non toxic, no distress, appears at stated age, normal weight Derm: no unusual rashes/lesions, warm Head: atraumatic, normocephalic, symmetric Eyes: EOMI, no lid lag, anicteric sclera, pupils equal round reactive to light ENT: Nose and ears atraumatic Neck: No cervical lymphadenopathy, trachea midline, supple Mouth: no lip lesion, mucus membranes moist Cardiovascular: S1S2 reg, no murmur, positive dorsalis pedis pulse bilateral, no edema Lungs: Velcro crackles are appreciated bilaterally, no wheezing, no accessory muscle use Abdominal: soft, nontender to palpation, no guarding Ext: muscle strength 5 out of 5 in all 4 extremities grossly, no gross muscle atrophy, no contractures, Neuro: CN II-XI grossly intact, no gross focal neuro deficits Psych: Alert, oriented, appropriate affect Data reviewed today: Labs: Procalcitonin 0.06, WBC 8.9, PT 10.9, INR 1.0, APTT 27.1, fibrinogen 459, D-dimer 0.21, sodium 138, potassium 3.8, bicarb 19, creatinine 0.61, CRP 5.70, HbA1c 6.2 Images: Chest CT shows bilateral groundglass opacities and 0.5 cm spiculated density along the major fissure posterior right upper lung field. Assessment and Plan: #COVID-19 pneumonitis #Acute hypoxemic respiratory failure, resolved #Leukocytosis secondary to above, resolved #0.5 cm spiculated mass right apex Chest x-ray interpreted independently shows diffuse interstitial opacities with a nodular density in the left perihilar region Chest CT shows bilateral groundglass opacities and 0.5 cm spiculated density along the major fissure posterior right upper lung field Continue with oxygen therapy at 2 L via nasal cannula Continue monitor vital signs Continue with remdesivir Continue dexamethasone 6 mg IV daily Continue albuterol inhaler Sputum culture negative; blood culture and urine Legionella antigen is pending Procalcitonin 0.06 negative, IV ceftriaxone and azithromycin discontinued #Hyperglycemia #Prediabetes Accu-Cheks and sliding scale insulin HbA1c 6.2 #Alessandro's disease -Patient's fludrocortisone discontinued by pulmonology -Dexamethasone will cover her steroid component, however, patient's preference is to also continue her hydrocortisone #Euvolemic hyponatremia Sodium 138, resolved Chronic condition: Nash's disease: Resume fludrocortisone 0.1 mg p.o. daily, hydrocortisone 10 mg p.o. 3 times daily Hypothyroidism: Resume 88 mcg p.o. daily #Hypertension: Hydrochlorothiazide 12.5 mg p.o. daily DVT prophylaxis: Lovenox 40 mg subcu daily The patient is admitted with an anticipated more than 2 midnight stay for evaluation of COVID-19 pneumonitis versus CAP CODE STATUS: Full Discussed with: Patient Anticipated discharge place: Pending clinical course, likely home Anticipated discharge time: Likely tomorrow I saw and evaluated the patient during the aly and critical portions of this encounter, and discussed the case in detail with the resident author of this note, I agree with the Assessment and Plan, and my changes, if any, are highlighted in blue. Objective - Vital Signs Vital signs: Vital Signs Temp 97.4 F L 07/12/24 07:43 Pulse 61 07/12/24 12:05 Resp 17 07/12/24 12:05 BP 125/75 07/12/24 12:05 Pulse Ox 97 07/12/24 12:05 FiO2 Intake & Output 07/11/24 07/12/24 07/12/24 18:59 06:59 18:59 Intake Total 118 Balance 118 Weight 81.647 kg Intake: Oral 118 Other: Voiding Method Toilet Toilet # Voids 3 - Labs CBC & Chem 7: 07/12/24 02:07 07/12/24 02:07 Labs: Abnormal Lab Results - Last 24 Hours (Table) 07/11/24 07/12/24 07/12/24 Range/Units 20:51 02:07 02:07 Lymphocytes # 0.9 L (1.0-4.8) k/uL Carbon Dioxide (22-30) mmol/L Glucose (74-99) mg/dL POC Glucose (mg/dL) 331 H (70-110) mg/dL Hemoglobin A1c 6.2 H (<=6.0) % Ferritin (10.0-291.0) ng/mL C-Reactive Protein (0.00-0.80) mg/dL 07/12/24 07/12/24 07/12/24 Range/Units 02:07 05:55 12:05 Lymphocytes # (1.0-4.8) k/uL Carbon Dioxide 19 L (22-30) mmol/L Glucose 182 H (74-99) mg/dL POC Glucose (mg/dL) 182 H 150 H (70-110) mg/dL Hemoglobin A1c (<=6.0) % Ferritin 422.0 H (10.0-291.0) ng/mL C-Reactive Protein 5.70 H (0.00-0.80) mg/dL Microbiology - Last 24 Hours (Table) 07/11/24 17:50 Gram Stain - Final Sputum Sputum Culture - Final
[2024-07-12] MEDS: REMDESIVIR 100 MG in SODIUM CHLORIDE 0.9% 250 ML IVPB SCH (15:02)
[2024-07-12 17:12] LABS: Glucose,Whole Blood 284 mg/dL (70-110)
[2024-07-12 20:07] LABS: Glucose,Whole Blood 215 mg/dL (70-110)
[2024-07-13] MEDS: ALBUTEROL HFA INHALER INHALATION PRN (00:23)
[2024-07-13 05:23] LABS: Partial Thromboplastin Time 24.5 sec (22.0-30.0); Prothrombin Time 11.1 sec (10.0-12.5)
[2024-07-13 06:23] LABS: Glucose,Whole Blood 104 mg/dL (70-110)
[2024-07-13 07:52] VITALS: BP 111/58; PULSE 59; RESP 16; TEMP 97.5
[2024-07-13 08:45] LABS: HCT 35.1 % (37.2-46.3); HGB 11.7 g/dL (12.0-15.0); MCH 29.8 pg (27.0-32.0); MCHC 33.3 g/dL (32.0-37.0); MCV 89.5 FL (80.0-97.0); Mean Platelet Volume 11.1 FL (9.5-12.2); NRBC Per 100 WBC 0 X 10*3/uL (0.00-0.01); Platelet Count 189 X 10*3/uL (140-440); RBC 3.92 X 10*6/uL (4.10-5.20); RDW 12.6 % (11.5-14.5); WBC 14.24 X 10*3/uL (4.50-10.00)
[2024-07-13 08:58] LABS: ALT 12 U/L (8-44); AST 17 U/L (13-35); Albumin 3.7 g/dL (3.8-4.9); Albumin/Globulin Ratio 1.95 Ratio (1.60-3.17); Alkaline Phosphatase 52 U/L (41-126); BUN/Creat Ratio 26.25 Ratio (12.00-20.00); Calcium 8.4 mg/dL (8.7-10.3); Carbon Dioxide 23.6 mmol/L (21.6-31.8); Chloride 108 mmol/L (96-109); Globulin 1.9 g/dL (1.6-3.3); Glucose 173 mg/dL (70-110); LDH 146 U/L (120-246); Magnesium 1.9 mg/dL (1.5-2.4); Potassium 4.2 mmol/L (3.5-5.5); Sodium 144 mmol/L (135-145); Total Bilirubin <0.2 mg/dL (0.3-1.2); Total Protein 5.6 g/dL (6.2-8.2)
[2024-07-13 09:55] LABS: Basophils # (A) 0.02 X 10*3/uL (0.00-0.10); Basophils % (A) 0.1 %; Eosinophils # (A) 0 X 10*3/uL (0.04-0.35); Eosinophils % (A) 0 %; Lymphocytes # (A) 1.15 X 10*3/uL (0.90-5.00); Lymphocytes % (A) 8.1 %; Monocytes # (A) 2.33 X 10*3/uL (0.20-1.00); Monocytes % (A) 16.4 %; Neutrophils # (A) 10.59 X 10*3/uL (1.80-7.70); Neutrophils % (A) 74.3 %; RBC Morphology Normal (Normal)
--- NOTE | 2024-07-13 10:37 | XR ---
EXAMINATION TYPE: XR chest 1V DATE OF EXAM: 07/13/2024 COMPARISON: NONE CLINICAL INDICATION: Female, 74 years old with history of covid 19 pneumonitis and cough; , TECHNIQUE: XR chest 1V views of the chest. FINDINGS: Limited inspiration with elevated hemidiaphragm and patchy interstitial infiltrates. Heart size mildl y enlarged. No pleural effusion or pneumothorax. Diffuse osteopenia, degenerative changes spine and a rthropathy of the shoulders. Patient noted nodular density in the left midlung not as well-seen on to day's exam could be related to limited inspiration. IMPRESSION: 1. Patchy interstitial infiltrates could be on the basis of chronic interstitial lung disease with bower perimposed interstitial pneumonitis\pneumonia. [facility], , 07/13/2024 10:35 AM
[2024-07-13 12:19] LABS: Glucose,Whole Blood 276 mg/dL (70-110)
[2024-07-13] MEDS: ERGOCALCIFEROL 1,250 MCG (50,000 IU) CAPSULE PO SCH (12:32)
--- NOTE | 2024-07-13 14:53 | P.PN ---
Subjective Progress Note Date: 07/13/24 74-year-old female patient presenting with cough and congestion and some limited shortness of breath over the past 48 hours. She came into the ED and the patient tested positive for COVID-19. Noted this is the patient's second infection with a virus. The first infection was few years back. No prior v accination. No nausea. No vomiting. No emesis. No diarrhea. Pulse ox is 95% on 2 L of oxygen nasal cannula. Chest x-ray shows chronic senescent changes. A nodule seen in the left lower lobe/infrahilar area. Atelectatic changes in lung bases. She is a non-smoker. White cell count is at 13.8 with hemoglobin 14.7 and platelet count of 197. The lactic acid level venous was 2.2. Electrolytes are all within normal limits. D-dimer has not been checked. Resting comfortably in bed. Hemodynamically stable. Comorbidities include Alessandro's disease maintained Cortef 10 mg 3 times daily and Florinef 0.1 milligrams p.o. daily. She also has hypothyroidism and hypertension. 07/12/2024, the patient is feeling great. She is currently on room air oxygen. The patient is currently on room air oxygen. Hemodynamically stable. Tolerating diet. The white cell count of 8.9, hemoglobin 15.3, D-dimer is at 0.21, electrolytes are all stable with a serum bicarb of 19 and a BUN of 15 with a creatinine of 0.6. The patient's CRP was 5.7, LDH was 147, the patient was taken off the antibiotics. She is on remdesivir. She is also on Decadron. On today's evaluation of 07/13/2024, the patient is doing well and she is currently on room air oxygen. She will be taken off the remdesivir and the p atient will be discharged home on a course of steroids. Recommend Decadron in combination of with fludrocortisone. No nausea. No emesis. No chest pain. No other complaints. White cell count is at 14, electrolytes all within normal limits. Objective - Vital Signs Vital signs: Vital Signs Temp 97.5 F L 07/13/24 07:51 Pulse 59 L 07/13/24 07:51 Resp 16 07/13/24 07:51 BP 111/58 07/13/24 07:51 Pulse Ox 95 07/13/24 07:51 FiO2 Intake & Output 07/12/24 07/13/24 07/13/24 18:59 06:59 18:59 Intake Total 236 118 Balance 236 118 Intake: Oral 236 118 Other: Voiding Method Toilet Toilet Toilet # Voids 3 3 - Exam The patient appeared well nourished and normally developed. Vital signs as documented. Head exam is unremarkable. No scleral icterus or corneal arcus noted. Neck is without jugular venous distension, thyromegaly, or carotid bruits. Carotid upstrokes are brisk bilaterally. Lungs are clear to auscultation and percussion. Cardiac exam reveals the PMI to be normally sized and situated. Rhythm is regular. First and second heart sounds normal. No murmurs, rubs or gallops. Abdominal exam reveals normal bowel sounds, no masses, no organomegaly and no aortic enlargement. Extremities are nonedematous and both femoral and pedal pulses are normal. Examination of the skin revealed no evidence of significant rashes, suspicious appearing nevi or other concerning lesions. Neurologically, the patient is awake and alert and the patient does not have any focal neurological deficit. Cranial nerves are essentially intact. - Labs CBC & Chem 7: 07/13/24 04:23 07/13/24 04:23 Labs: Abnormal Lab Results - Last 24 Hours (Table) 07/12/24 07/12/24 07/13/24 Range/Units 17:11 20:06 04:23 WBC 14.24 H (4.50-10.00) X 10*3/uL RBC 3.92 L (4.10-5.20) X 10*6/uL Hgb 11.7 L (12.0-15.0) g/dL Hct 35.1 L (37.2-46.3) % Immature Gran # 0.15 H (0.00-0.04) X 10*3/uL Neutrophils # 10.59 H (1.80-7.70) X 10*3/uL Monocytes # 2.33 H (0.20-1.00) X 10*3/uL Eosinophils # 0 L (0.04-0.35) X 10*3/uL Anion Gap (4.00-12.00) mmol/L BUN/Creatinine Ratio (12.00-20.00) Ratio Glucose (70-110) mg/dL POC Glucose (mg/dL) 284 H 215 H (70-110) mg/dL Calcium (8.7-10.3) mg/dL Total Bilirubin (0.3-1.2) mg/dL C-Reactive Protein (0.00-0.80) mg/dL Total Protein (6.2-8.2) g/dL Albumin (3.8-4.9) g/dL 07/13/24 07/13/24 Range/Units 04:23 12:17 WBC (4.50-10.00) X 10*3/uL RBC (4.10-5.20) X 10*6/uL Hgb (12.0-15.0) g/dL Hct (37.2-46.3) % Immature Gran # (0.00-0.04) X 10*3/uL Neutrophils # (1.80-7.70) X 10*3/uL Monocytes # (0.20-1.00) X 10*3/uL Eosinophils # (0.04-0.35) X 10*3/uL Anion Gap 12.40 H (4.00-12.00) mmol/L BUN/Creatinine Ratio 26.25 H (12.00-20.00) Ratio Glucose 173 H (70-110) mg/dL POC Glucose (mg/dL) 276 H (70-110) mg/dL Calcium 8.4 L (8.7-10.3) mg/dL Total Bilirubin <0.2 L (0.3-1.2) mg/dL C-Reactive Protein 2.30 H (0.00-0.80) mg/dL Total Protein 5.6 L (6.2-8.2) g/dL Albumin 3.7 L (3.8-4.9) g/dL Microbiology - Last 24 Hours (Table) 07/11/24 12:30 Blood Culture - Preliminary Blood Assessment and Plan Plan: Acute COVID-19 infection, symptoms started approximately 48 hours ago. Second infection since the beginning of the pandemic, no prior vaccination. Chest x- ray findings are essentially chronic, questionable nodule in the left lower lobe. CAT scan of the chest shows no acute abnormalities. Acute hypoxic respiratory failure, improved and the patient is currently on room air oxygen Alessandro's disease Hypothyroidism Hypertension Plan Monitor oxygenation, currently on room air oxygen Continue Decadron 6 mg daily to complete a total of 10-day course Check D-dimer was low CAT scan of the chest was reviewed, no concerns for nodules Cleared for discharge from pulmonary
--- NOTE | 2024-07-13 15:27 | P.DS ---
Providers Date of admission: 07/12/24 08:11 Expected date of discharge: 07/13/24 Attending physician: Ciara Luong MD Consults: 07/11/24 16:00 Consult Physician Routine Consulting Provider: Arsenio Franco Consult Reason/Comments: COVID 19 pneumonitis? Do you want consulting provider notified?: Yes Primary care physician: Guerrero Rodrigues [facility] Course: Discharge Diagnosis: #COVID-19 pneumonitis #Acute hypoxemic respiratory failure, resolved #Leukocytosis secondary to above, resolved #0.5 cm spiculated mass right apex #Hyperglycemia #Prediabetes #Hyde's disease #Euvolemic hyponatremia, resolved Hospital Course: Patient is a 74-year-old female with history of Hyde's disease on daily steroids, GERD, hypothyroidism presents to the ER with shortness of breath and extreme lethargy. Viral panel shows that patient is COVID-19 positive. Laboratory evaluation in the ER shows WBC of 13.8, hemoglobin 14.7, MCV 89.6, sodium 135, potassium 3.7, chloride 101, bicarb 24, BUN 14, creatinine 0.72, glucose of 135, lactic acid 2.2, calcium 8.8. Vital signs significant for Tmax of 100.2 F, pulse rate 92, respirate 18, blood pressure 1 5176, oxygen saturation 95% on 2 L via nasal cannula. Chest x-ray interpreted independently shows diffuse interstitial opacities with a nodular density in the left perihilar region. EKG interpreted independently shows sinus rhythm with normal DE interval and QTc. Normal R wave progression. Patient was admitted to the hospital for COVID-19 pneumonitis. Patient was also started on IV antibiotic with a suspicion for superimposed CAP. Pulmonology was consulted. Lab work pertaining to COVID-19 pneumonitis was initiated. Patient was started on remdesivir. D-dimer was negative. Procalcitonin was negative. Community-ac quired pneumonia was ruled out. IV antibiotics were discontinued. Chest CT shows bilateral groundglass opacities and 0.5 cm spiculated density along the major fissure posterior right upper lung field. Repeat chest x-ray showed residual patchy interstitial infiltrate which could be acute on chronic in nature. Subsequently, patient symptoms improved with patient returning back to her baseline respiratory status with no requirement for supplemental oxygen. She is not complaining of any shortness of breath. Patient is medically optimized to be discharged. She will be following up with pulmonology and her PCP. Patient to be discharged on dexamethasone and to complete total of 10-day course. Patient will continue rest of her home medications as directed. Patient also provided instruction on COVID-19 disease and its prevention. Vital signs reviewed. Gen: in no apparent distress, resting comfortably in bed Eyes: PERRL, no scleral injection or icterus HENT: normocephalic, atraumatic, good hearing acuity, moist mucous membranes Neck: full range of motion Resp: CTAB, no rales, rhonchi, or wheezes CVS: normal S1 and S2, no murmurs, rubs or gallops, no edema GI: soft, NTTP, ND, no hepatosplenomegaly : no suprapubic tenderness, no CVAT, yeager catheter is not present MSK: no clubbing, no cyanosis, no noted contractures of extremities Skin: no noted rashes, petechiae; temperature of skin is appropriate Neuro: moving all extremities without signs of weakness, CN II-XII intact Psych: cooperative, euthymic mood, insight and judgment intact A total of 36 minutes of time were spent preparing this complex discharge summary. Patient was discharged on 07/13/2024 at 1245. I have seen and evaluated the patient today. Discussed with the resident and agree with the residents finding and plan as documented in the resident's note. Changes highlighted in blue font. Patient Condition at Discharge: Stable Plan - Discharge Summary New Discharge Prescriptions: New dexAMETHasone [Decadron] 6 mg PO DAILY #8 tablet Albuterol Inhaler [Ventolin Hfa Inhaler] 1 - 2 puff INHALATION Q6H PRN #1 each PRN Reason: Shortness Of Breath Continue Levothyroxine Sodium [Synthroid] 88 mcg PO DAILY Hydrocortisone [Cortef] 10 mg PO TID Fludrocortisone Acetate 0.1 mg PO DAILY hydroCHLOROthiazide [Hydrodiuril] 12.5 mg PO DAILY Ergocalciferol [Vitamin D2 (1250 Mcg = 71613 Iu)] 1,250 mcg PO TUSA Calcium Carbonate [Calcium] 600 mg PO DAILY Discharge Medication List Fludrocortisone Acetate 0.1 mg PO DAILY 10/29/16 [History] Hydrocortisone [Cortef] 10 mg PO TID 10/29/16 [History] Levothyroxine Sodium [Synthroid] 88 mcg PO DAILY 10/29/16 [History] Ergocalciferol [Vitamin D2 (1250 Mcg = 15050 Iu)] 1,250 mcg PO TUSA 08/20/22 [History] hydroCHLOROthiazide [Hydrodiuril] 12.5 mg PO DAILY 08/20/22 [History] Calcium Carbonate [Calcium] 600 mg PO DAILY 08/22/22 [History] Albuterol Inhaler [Ventolin Hfa Inhaler] 1 - 2 puff INHALATION Q6H PRN #1 each 07/13/24 [Rx] dexAMETHasone [Decadron] 6 mg PO DAILY #8 tablet 07/13/24 [Rx] Follow up Appointment(s)/Referral(s): Guerrero Reaves MD [Primary Care Provider] - 1-2 days Arsenio Franco MD [STAFF PHYSICIAN] - 09/26/24 9:30 am Patient Instructions/Handouts: COVID-19 (Coronavirus Disease 2019) (DC), COVID- 19: Slow the Coronavirus Spread (DC) Activity/Diet/Wound Care/Special Instructions: Please see PCP and pulmonology. Continue to take fludrocortisone daily. Take dexamethasone for the next 8 days. Resume hydrocortisone 3 times daily after those days. Discharge Disposition: HOME SELF-CARE
== END 2024-07-13 14:28 | disposition home or self-care (01) | DRG 177 ==
LOC: EC 10:48 → 6NMEDSUR 13:43 → OBSVTOIN 07-12 08:11
PROVIDERS: ADMIT Internal Medicine; ATTEND Internal Medicine
PROC: XW033E5 Introduction of Remdesivir Anti-infective into Peripheral Vein, Percutaneous Approach, New Technology Group 5 (ICD-10-PCS; principal; 2024-07-11)
DX: U07.1 COVID-19 (principal); J12.82 Pneumonia due to coronavirus disease 2019; J96.01 Acute respiratory failure with hypoxia; E27.1 Primary adrenocortical insufficiency; E87.1 Hypo-osmolality and hyponatremia; E03.9 Hypothyroidism, unspecified; I10 Essential (primary) hypertension; R73.03 Prediabetes; K21.9 Gastro-esophageal reflux disease without esophagitis; J30.2 Other seasonal allergic rhinitis; Z77.22 Contact with and (suspected) exposure to environmental tobacco smoke (acute) (chronic); Z79.890 Hormone replacement therapy; Z91.040 Latex allergy status; Z28.310 Unvaccinated for COVID-19; Z79.899 Other long term (current) drug therapy; Z79.52 Long term (current) use of systemic steroids; Z86.16 Personal history of COVID-19
CPT/HCPCS: 36415; 71045; 71046; 71250; 80053; 82728; 83036; 83605; 83615; 83735; 83880; 84145; 85025; 85379; 85384; 85610; 85652; 85730; 86140; 87040; 87070; 87205; 87449; 87636; 93005; 94640; 96361; 96365; 96366; 96375; 99291

== ENCOUNTER → 2024-10-04 | Outpatient (CLI) | payer MEDICARE ==
[2024-10-04 12:14] LABS: Influenza A Not Detected (Not Detectd); Influenza B Not Detected (Not Detectd); RSV Not Detected (Not Detectd)
== END | disposition home or self-care (01) ==
LOC: LABWHC1 10:56
PROVIDERS: ATTEND Internal Medicine Critical Care Medicine
DX: Z20.822 Contact with and (suspected) exposure to COVID-19 (principal); R50.9 Fever, unspecified; R05.9 Cough, unspecified; R09.81 Nasal congestion
CPT/HCPCS: 87636